=== PATIENT | male | born 1925 | race African-American/Black ===

== ENCOUNTER 2016-07-09 10:56 | Inpatient (IN) | payer OTHER, MEDICARE ==
[~2016-07-09] VITALS: Ht 172.7 cm; Wt 65.8 kg
[~2016-07-09 10:56] MED LIST: CENTRUM SILVER1 TA1 PO; DORZOLAMIDE HYD10 M2; FLUZONE HI180 MCG/02 INC; PIOGLITAZONE HC30 M1 PEG; XALATAN 0.50 GTT/1 B OPH; ZOFRAN4 M2 PO
--- NOTE | 2016-07-09 11:15 | NUR ---
PT BIBA FROM HOME FOR ABD PAIN, +N/+V. PT HAS A G-TUBE BUT HAS VOMITED THREE TIMES SINCE LAST NIGHT. 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 PT DENIES ANY BLOOD IN VOMIT OR STOOL. LAST NORMAL BM YESTERDAY. DENIES BEING AROUND ANYONE SICK LATELY.
--- NOTE | 2016-07-09 11:25 | ED GI/GU/ABDOMINAL COMPLAINT ---
History of Present Illness General Chief Complaint: Abdominal Pain/Flank Pain Stated Complaint: ABD, +N/+V Source: patient Exam Limitations: no limitations Vital Signs & Intake/Output Vital Signs & Intake/Output Vital Signs Date Time Temp Pulse Resp B/P Pulse O2 O2 Flow FiO2 Ox Delivery Rate 07/13 0854 97.6 89 20 100/62 94 07/13 0800 95 Room Air 07/13 0044 100.1 96 20 110/70 94 Room Air 07/12 1620 99.2 90 20 142/68 95 ED Intake and Output 07/13 0000 07/12 1200 Intake Total 500 935 Output Total 875 300 Balance -375 635 Intake, IV 500 400 Intake, Oral 0 Intake, Tube 360 Feeding Intake, Tube 175 Irrigant Number 1 1 Bowel Movements Output, Urine 875 300 Allergies Coded Allergies: NO KNOWN ALLERGIES (11/21/15) Triage Note: PT BIBA FROM HOME FOR ABD PAIN, +N/+V. PT HAS A G-TUBE BUT HAS VOMITED THREE TIMES SINCE LAST NIGHT. 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 PT DENIES ANY BLOOD IN VOMIT OR STOOL. LAST NORMAL BM YESTERDAY. DENIES BEING AROUND ANYONE SICK LATELY. Triage Nurses Notes Reviewed? yes HPI: This patient is an 89-year-old male with a past medical history including type 2 diabetes and G-tube who presented to the emergency department today brought in by ambulance for evaluation of nausea and vomiting. The patient reported that he has had some nausea, "for a while," but reported that last night at around 12 :00, he felt very nauseous. He reported that his stomach feels sore, denied any abdominal pain. The patient reported that he vomited once last night and approximately 3 times today with no blood in the vomitus. The patient denied having any problems with his G-tube. He denied any fevers, chills, chest pain, difficulty breathing, talking, arm pain, palpitations, numbness or tingling in his extremities, back pain, or any other associated symptoms. (MIKAEL BARBER,ALIREZA) Reconcile Medications Amoxicillin/Potassium Clav (Augmentin 875-125 Tablet) 875 MG-125 MG TABLET 1 TAB PO BID Aspiration pneumonia Insulin Glargine,Hum.rec.anlog (Lantus Solostar) 100 UNIT/ML (3 ML) INSULN.PEN 10 UNIT SC DAILY DIABETES (Reported) Metformin HCl 500 MG TABLET 1 TAB PO BID DIABETES (Reported) Pioglitazone Hydrochloride 30 MG TAB 1 TAB PO DAILY DIABETES (Reported) (JOHN VALLEJO,NEREIDA) Past History Travel History Traveled to [place] past 21 day No Medical History Any Pertinent Medical History? 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 No (ALIREZA YOUSSEF PA-C) Review of Systems Review of Systems Constitutional: Reports: no symptoms. EENTM: Reports: no symptoms. Respiratory: Reports: no symptoms. Cardiovascular: Reports: no symptoms. GI: Reports: see HPI. Genitourinary: Reports: no symptoms. Musculoskeletal: Reports: no symptoms. Skin: Reports: no symptoms. Neurological/Psychological: Reports: no symptoms. All Other Systems: Reviewed and Negative (ALIREZA YOUSSEF PA-C) Physical Exam Physical Exam Gastrointestinal: NORMOACTIVE BOWEL SOUNDS. g-TUBE IN PLACE WITH NO SURROUNDING SKIN ERYTHEMA, EDEMA, OR MACERATION. nONDISTENDED. sOFT. nONTENDER TO PALPATION. nO PERITONEAL SIGNS. nO REBOUND OR GUARDING. nO mCbURNEY'S POINT TENDERNESS. nEGATIVE Gomez SIGN. nO MASSES APPRECIATED. nO ORGANOMEGALY Comments: Well-developed well-nourished person in no acute distress HEENT: Normal EENT exam, moist mucous membranes Pupils equally round and reactive to light. Neck: Supple with no lymphadenopathy Back: Normal inspection Cardiovascular: Regular rate and rhythm with no murmurs, rubs, or gallops Respiratory: No respiratory distress. Breath sounds clear to auscultation bilaterally with no wheezes, rales, rhonchi Extremity: Normal and equal pulses Neuro: Alert oriented x3, cranial nerves II through XII grossly intact. Skin: No appreciable rash on exposed skin, skin is warm and dry. Psych: Mood and affect is normal Core Measures ACS in differential dx? Yes Severe Sepsis Present: No Septic Shock Present: No (MIKAEL BARBER,ALIREZA) Progress Differential Diagnosis: AAA, AMI, appendicitis, biliary colic, bowel obstruction , colon cancer, cholecystitis, diverticulitis, gastritis, hepatitis, ischemic bowel, inflamm bowel dis, pancreatitis, PUD/GERD, perforated viscous, pyelonephritis, ureterolithiasis, UTI/pyelo Plan of Care: Orders Procedure Date/time Status CBC WITHOUT DIFFERENTIAL 07/14 06 Active Anticipated Discharge 07/14 UNK Active CBC WITHOUT DIFFERENTIAL 07/13 0600 Complete XRY-MODIFIED BARIUM SWALLOW 07/13 UNK Active Therapeutic Activities 07/13 UNK Complete Therapeutic Exercise 07/13 UNK Complete Gait Training 07/13 UNK Complete Lab Add-on Test 07/13 UNK Active Nursing Misc 07/13 UNK Active Vital Signs 07/12 1704 Active Teach/Educate 07/12 170 Active Nutritional Intake, Monitor 07/12 170 Active Isolation 07/12 1704 Active Intake & Output 07/12 1704 Active Patient Care Conference 07/12 1704 Active Activity/Ambulation 07/12 1704 Active SPECIMEN TO BE OBTAINED 07/12 1454 Active TOTAL PROTEIN 07/12 1450 Complete AFB WITH SMEAR 07/12 0800 Active Evaluate Swallowing 07/12 UNK Complete PT Evaluate & Treat 07/12 UNK Active Therapeutic Activities 07/12 UNK Complete PT EVAL LOW COMPLEX 20 MIN 07/12 UNK Complete Neuromuscular Re-ed 07/12 UNK Complete Lab Add-on Test 07/12 UNK Active Anticipated Discharge 07/12 UNK Active Nursing Misc 07/12 UNK Complete Current Medications Sig/Lisa Start time Last Medication Dose Stop Time Status Admin Amoxicillin/ 875 MG Q12 07/13 1000 AC Clavulanate Potassium (Augmentin) Acetaminophen 650 MG Q6P PRN 07/09 1715 AC (Tylenol) Trimethobenzamide HCl 200 MG TID PRN 07/09 1715 AC (Tigan) Laboratory Tests 07/13/16 0710: CBC w Diff NO MAN DIFF REQ, RBC 2.91 L, MCV 92.0, MCH 30.9, RDW 13.2, MPV 11.6 H, Gran % 81.3 H, Lymphocytes % 3.9 L, Monocytes % 13.0 H, Eosinophils % 1.3, Basophils % 0.5, Absolute Granulocytes 7.2 H, Absolute Lymphocytes 0.3 L, Absolute Monocytes 1.1 H, Absolute Eosinophils 0.1, Absolute Basophils 0, PUBS MCHC 33.5 07/12/16 1450: Lactate Dehydrogenase 412, Total Protein 6.4, Albumin 2.9 L Diagnostic Imaging: Viewed by Me: CT Scan. Discussed w/RAD: CT Scan. Radiology Impression: PATIENT: MILLY LLOYD PRESENT AGE: 89 PATIENT ACCOUNT NO: [id number] : [birth year] LOCATION: [facility] ORDERING PHYSICIAN: ALIREZA YOUSSEF PA-C SERVICE DATE: 07/09/16 EXAM TYPE: CAT - CT ABD & PELVIS W IV CONTRAST EXAMINATION: CT ABDOMEN AND PELVIS WITH CONTRAST CLINICAL INFORMATION: Abdominal pain. Nausea and vomiting. COMPARISON: Previous CT scan January 2016 TECHNIQUE: Multidetector volumetric imaging was performed of the abdomen and pelvis before and after the IV administration of 95 mL of Optiray 320 intravenous contrast. Sagittal and coronal reformatted images were obtained on the technologist's workstation. DLP: 305 mGy-cm. FINDINGS: LUNG BASES: There are new patchy areas of airspace disease seen in the right middle lobe and right lower lobe suggestive of bronchopneumonia. There is a moderate left pleural effusion and left lower lobe compressive atelectasis that is unchanged. LIVER, GALLBLADDER, AND BILIARY TREE: The liver is normal in size, shape, and attenuation. No focal hepatic lesion or biliary ductal dilatation is present. The gallbladder is unremarkable with no evidence of radiopaque gallstones, gallbladder wall thickening, or obvious pericholecystic inflammatory changes. PANCREAS: Unremarkable. SPLEEN: Unremarkable. ADRENAL GLANDS: Unremarkable. KIDNEYS AND URETERS: The kidneys are normal in size, shape, and attenuation. No hydronephrosis, hydroureter, or calculi seen. No perinephric stranding. BLADDER: Unremarkable. GASTROINTESTINAL TRACT: The small and large bowel are unremarkable. The appendix is unremarkable. There is a gastrostomy tube in the stomach. No ascites or free air is seen. ABDOMINAL WALL: No significant hernia is appreciated. LYMPH NODES: Normal. VASCULAR: Unremarkable. PELVIC VISCERA: Unremarkable. OSSEOUS STRUCTURES: There are severe degenerative changes of the spine. There may be postsurgical change at L4 and L5. There are linear calcifications in the spinal canal from L4-L5 to L5-S1 that are stable. IMPRESSION: New airspace disease in the right middle and right lower lobe suggestive of pneumonia. Chronic moderate-size left pleural effusion and left lower lobe atelectasis/consolidation. Satisfactory position of gastrostomy tube. DICTATED BY: JUSTIN WILHELM MD DATE/TIME DICTATED:07/09/161420 USED EQUIPMENT SALES REPRESENTATIVE:CARLOS DATE/TIME TRANSCRIBED:07/09/161420 CONFIDENTIAL, DO NOT COPY WITHOUT APPROPRIATE AUTHORIZATION. <Electronically signed in Other Vendor System> SIGNED BY: JUSTIN WILHELM MD 07/09/16 1505 Initial ED EKG: normal axis, normal intervals, normal sinus rhythm, nonspecific ST T wave chg, 86 BPM (ALIREZA YOUSSEF PA-C) Departure Departure Disposition: STILL A PATIENT Condition: Stable Clinical Impression Primary Impression: Pneumonia Qualifiers: Pneumonia type: due to unspecified organism Laterality: right Lung location: unspecified part of lung Qualified Code: J18.9 - Pneumonia, unspecified organism Secondary Impressions: Leukocytosis Qualifiers: Leukocytosis type: unspecified Qualified Code: D72.829 - Elevated white blood cell count, unspecified Vomiting Qualifiers: Vomiting type: unspecified Vomiting Intractability: non-intractable Nausea presence: with nausea Qualified Code: R11.2 - Nausea with vomiting, unspecified Referrals: ALVINA BRITO MD (PCP/Family) Departure Forms: Customer Survey General Discharge Information Admission Note Spoke With: COURTNEY KABA MD Documentation of Exam: Documentation of any treatments & extenuating circumstances including Concerns Regarding Discharge (functional status, medication knowledge or non-compliance, living conditions, etc.) that warrant an admission rather than observation: [ This patient is a 89-year-old male who presented to the emergency department today for evaluation of nausea and vomiting. This patient has a right middle and right lower lobe pneumonia with a 17.4, white blood cell count and a shift. Concern for aspiration pneumonia. This patient is a poor candidate for outpatient treatment. He should be admitted to the hospital for IV antibiotics, follow-up blood cultures, IV fluids, IV antiemetics, trend labs, and close monitoring. Premature discharge could prove medically harmful.] (MIKAEL BARBER,ALIREZA) Departure Prescriptions: Current Visit Scripts Amoxicillin/Potassium Clav (Augmentin 875-125 Tablet) 1 TAB PO BID #12 TAB PA/ENGRAVING SUPERVISOR Co-Sign Statement Statement: ED Attending supervision documentation- [X] I saw and evaluated the patient. I have also reviewed all the pertinent lab results and diagnostic results. I agree with the findings and the plan of care as documented in the PA's/ENGRAVING SUPERVISOR's documentation. [X] I have reviewed the ED Record and agree with the PA's/ENGRAVING SUPERVISOR's documentation. [] Additions or exceptions (if any) to the PAs/ENGRAVING SUPERVISOR's note and plan are summarized below: [] (JOHN VALLEJO,NEREIDA)
--- NOTE | 2016-07-09 11:57 | NUR ---
PT EVALUATED BY ALIREZA EARLY FLU SWAB TAKEN AND SENT TO LAB
[2016-07-09] MEDS ORDERED: LANTUS SOL100 UNIT/1 SC (12:36)
[2016-07-09] MEDS ORDERED: METFORMIN HCL500 M3 PEG (12:37)
--- NOTE | 2016-07-09 12:43 | NUR ---
BLOOD DRAWN DIRECTED. 20 G AUGUSTINE PLACED IN RIGHT FOREARM IV OF N/S STARTED W/O X 500 ML PT MEDICATED WITH 4 MG ZOFRAN IV FOR NAUSEA
[2016-07-09 12:58] LABS: ABSOLUTE BASOPHIL COUNT 0 /CUMM (0.0-0.2); ABSOLUTE EOSINOPHIL COUNT 0.1 /CUMM (0.0-0.7); ABSOLUTE GRANULOCYTE CT 16.2 /CUMM (1.4-6.5); ABSOLUTE LYMPH COUNT 0.5 /CUMM (1.2-3.4); ABSOLUTE MONOCYTE COUNT 0.6 /CUMM (0.10-0.60); BASOPHIL % 0.1 % (0.0-2.0); EOSINOPHIL % 0.3 % (0-5); HEMATOCRIT 36.1 % (42-52); MEAN CORPUSCULAR HGB 30.7 PG (27.0-31.0); MEAN CORPUSCULAR HGB CONC 33.3 G/DL (33.0-37.0); MEAN CORPUSCULAR VOLUME 92.3 FL (80.0-94.0); MEAN PLATELET VOLUME 10.6 FL (7.4-10.4); PLATELET COUNT 138 /CUMM (130-400); RBC DISTRIBUTION WIDTH 13.7 % (11.5-14.5); RED BLOOD CELL CT 3.91 /CUMM (4.70-6.10); WHITE BLOOD CELL COUNT 17.4 /CUMM (4.8-10.8)
--- NOTE | 2016-07-09 15:05 | CT SCAN REPORT ---
EXAMINATION: CT ABDOMEN AND PELVIS WITH CONTRAST CLINICAL INFORMATION: Abdominal pain. Nausea and vomiting. COMPARISON: Previous CT scan January 2016 TECHNIQUE: Multidetector volumetric imaging was performed of the abdomen and pelvis before and after the IV administration of 95 mL of Optiray 320 intravenous contrast. Sagittal and coronal reformatted images were obtained on the technologist's workstation. DLP: 305 mGy-cm. FINDINGS: LUNG BASES: There are new patchy areas of airspace disease seen in the right middle lobe and right lower lobe suggestive of bronchopneumonia. There is a moderate left pleural effusion and left lower lobe compressive atelectasis that is unchanged. LIVER, GALLBLADDER, AND BILIARY TREE: The liver is normal in size, shape, and attenuation. No focal hepatic lesion or biliary ductal dilatation is present. The gallbladder is unremarkable with no evidence of radiopaque gallstones, gallbladder wall thickening, or obvious pericholecystic inflammatory changes. PANCREAS: Unremarkable. SPLEEN: Unremarkable. ADRENAL GLANDS: Unremarkable. KIDNEYS AND URETERS: The kidneys are normal in size, shape, and attenuation. No hydronephrosis, hydroureter, or calculi seen. No perinephric stranding. BLADDER: Unremarkable. GASTROINTESTINAL TRACT: The small and large bowel are unremarkable. The appendix is unremarkable. There is a gastrostomy tube in the stomach. No ascites or free air is seen. ABDOMINAL WALL: No significant hernia is appreciated. LYMPH NODES: Normal. VASCULAR: Unremarkable. PELVIC VISCERA: Unremarkable. OSSEOUS STRUCTURES: There are severe degenerative changes of the spine. There may be postsurgical change at L4 and L5. There are linear calcifications in the spinal canal from L4-L5 to L5-S1 that are stable. IMPRESSION: New airspace disease in the right middle and right lower lobe suggestive of pneumonia. Chronic moderate-size left pleural effusion and left lower lobe atelectasis/consolidation. Satisfactory position of gastrostomy tube.
--- NOTE | 2016-07-09 15:47 | NUR ---
PT'S URINAL SPILLED ON BED, BEDDING CHANGED AND [facility] CARE PROVIDED. WILL CONTINUE TO MONITOR.
--- NOTE | 2016-07-09 16:20 | NUR ---
HOUSE STAFF AT BEDSIDE FOR EVAL.
--- NOTE | 2016-07-09 17:01 | NUR ---
PT'S FAMILY MEMBER WOULD LIKE TO BE CONTACTED ONCE PT GETS ADMITTED UPSTAIRS: IRVIN [phone]
--- NOTE | 2016-07-09 17:01 | History & Physical ---
MARIZOL SHAVER MD 07/09/16 5594: General Information and HPI MD Statement: I have seen and personally examined MILLY GREENWOOD and documented this H&P. The patient is a 89 year old M who presented with a patient stated chief complaint of nausea and vomiting. Source of Information: patient, family Exam Limitations: poor historian History of Present Illness: Mr. 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 Patient's son was in the room during the interview and reports that his father frequently had nausea and had vomiting a few times over the last 2-4 weeks. This nausea is intermittent and relieved with discontinuation of his tube feedings (continuous). He has not taken anything for the nausea or vomiting. Patient has not seen a physician for this issue before. The reason that the patient presented to the ED today is because last night his nausea was extremely severe. In the last 24 hours, patient admits to vomiting once last night and about 2 times today, without evidence of blood. Patient denies fever, chills, chest pain, shortness of breath , abdominal pain, dysuria, foul smelling urine or weakness. He does admit to the inability to swallow secretions secondary to his vocal cord paralysis and occasionally this requires him to use his own suctioning to clear his airway. Of note, his G-tube is checked and dressed daily by a visiting nurse during the week and his son changes the dressing during the weekends; there have been no recent problems with the G-tube. He was at [facility] in May for a nutrition evaluation to determine appropriate feeding rate and pump speed. I have called the patient's daughter Jac ([phone]) who is POA and would like to be involed in her fathers care. 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 Home Services at Home: Home Health Aide, Nursing Primary Language: Persian Smoking Status: Never Smoked ETOH Use: denies use Illicit Drug Use: denies illicit drug use Living Will? no Functional Ability ADLs Independent: dressing. Ambulation: walker Sexual History Sexually Active No Review of Systems Review of Systems Constitutional: Denies: chills, fever, malaise, weakness. EENTM: Denies: blurred vision, visual changes, hearing changes, nasal congestion, throat pain, throat swelling. Cardiovascular: Denies: chest pain, palpitations. Respiratory: Denies: cough, short of breath, sputum production, wheezing. GI: Reports: nausea, vomiting. Denies: abdominal pain, bloating, constipation, diarrhea, distention, bloody stool. Genitourinary: Denies: frequency, hematuria, pain. Musculoskeletal: Denies: muscle pain. Skin: Denies: change in skin color, change in hair/nails. Neurological/Psychological: Denies: anxiety, ataxia, confusion, headache, numbness. Hematologic/Endocrine: Denies: bruising, bleeding. Immunologic/Allergic: Denies: splenectomy. All Other Systems: Reviewed and Negative Exam & Diagnostic Data Last 24 Hrs of Vital Signs/I&O Vital Signs Date Time Temp Pulse Resp B/P Pulse O2 O2 Flow FiO2 Ox Delivery Rate 07/09 1704 Room Air Room Air 07/09 1609 97.1 85 15 130/66 96 Room Air Room Air 07/09 1245 96 Room Air 07/09 1118 96.7 86 16 157/76 96 Room Air Intake & Output 07/09 1600 07/09 0800 07/09 0000 Intake Total 0 Output Total Balance 0 Intake, Oral 0 Patient 145 lb Weight Physical Exam General Appearance Alert, Oriented X3, Cooperative, No Acute Distress Skin No Significant Lesion, Skin dry and no signs of infection around PEG tube. HEENT Atraumatic, PERRLA, Mucous Membr. moist/pink Neck Supple, No JVD Lymphatic Cervical nl Cardiovascular Regular Rate, Normal S1, Normal S2, Systolic murmur. Lungs Clear to Auscultation, Normal Air Movement Abdomen Normal Bowel Sounds, Soft, No Tenderness, No Masses Neurological Normal Speech, Normal Tone Extremities No Clubbing, No Cyanosis, No Edema Vascular Pulses Symmetrical Last 24 Hrs of Labs/Bradley: Laboratory Tests 07/09/16 1424: Lactic Acid Cancelled 07/09/16 1235: Anion Gap 13, Estimated GFR > 60, BUN/Creatinine Ratio 28.8 H, Glucose 172 H, Lactic Acid 1.8, Calcium 9.2, Total Bilirubin 1.0, Direct Bilirubin 0.4, AST 21, ALT 18 L, Alkaline Phosphatase 127 H, Troponin I < 0.01, Total Protein 7.9, Albumin 3.8, Globulin 4.1, Albumin/Globulin Ratio 0.9 L, Amylase 59, Lipase 115 , CBC w Diff MAN DIFF ORDERED, RBC 3.91 L, MCV 92.3, MCH 30.7, RDW 13.7, MPV 10.6 H, Gran % 93.0 H, Lymphocytes % 3.0 L, Monocytes % 3.6, Eosinophils % 0.3, Basophils % 0.1, Absolute Granulocytes 16.2 H, Absolute Lymphocytes 0.5 L , Absolute Monocytes 0.6, Absolute Eosinophils 0.1, Absolute Basophils 0, Platelet Estimate VERIFIED BY SMEAR, Normocytic RBCs VERIFIED, Normochromic RBCs VERIFIED, PUBS MCHC 33.3 Microbiology 07/09 1607 BLOOD: Blood Culture - RECD 07/09 1556 BLOOD: Blood Culture - RECD Diagnostic Data EKG Results SR, HR 86, non-specific IVCD, LVH. Changed from prior EKG. Other Results EXAMINATION: CT ABDOMEN AND PELVIS WITH CONTRAST CLINICAL INFORMATION: Abdominal pain. Nausea and vomiting. COMPARISON: Previous CT scan January 2016 TECHNIQUE: Multidetector volumetric imaging was performed of the abdomen and pelvis before and after the IV administration of 95 mL of Optiray 320 intravenous contrast. Sagittal and coronal reformatted images were obtained on the technologist's workstation. DLP: 305 mGy-cm. FINDINGS: LUNG BASES: There are new patchy areas of airspace disease seen in the right middle lobe and right lower lobe suggestive of bronchopneumonia. There is a moderate left pleural effusion and left lower lobe compressive atelectasis that is unchanged. LIVER, GALLBLADDER, AND BILIARY TREE: The liver is normal in size, shape, and attenuation. No focal hepatic lesion or biliary ductal dilatation is present. The gallbladder is unremarkable with no evidence of radiopaque gallstones, gallbladder wall thickening, or obvious pericholecystic inflammatory changes. PANCREAS: Unremarkable. SPLEEN: Unremarkable. ADRENAL GLANDS: Unremarkable. KIDNEYS AND URETERS: The kidneys are normal in size, shape, and attenuation. No hydronephrosis, hydroureter, or calculi seen. No perinephric stranding. BLADDER: Unremarkable. GASTROINTESTINAL TRACT: The small and large bowel are unremarkable. The appendix is unremarkable. There is a gastrostomy tube in the stomach. No ascites or free air is seen. ABDOMINAL WALL: No significant hernia is appreciated. LYMPH NODES: Normal. VASCULAR: Unremarkable. PELVIC VISCERA: Unremarkable. OSSEOUS STRUCTURES: There are severe degenerative changes of the spine. There may be postsurgical change at L4 and L5. There are linear calcifications in the spinal canal from L4-L5 to L5-S1 that are stable. IMPRESSION: New airspace disease in the right middle and right lower lobe suggestive of pneumonia. Chronic moderate-size left pleural effusion and left lower lobe atelectasis/consolidation. Satisfactory position of gastrostomy tube. Assessment/Plan Assessment: Ms. 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 This nausea and vomiting is intermittent and relieved with discontinuation of his tube feeding; he has not tried any medications for relief. He does admit to increased oral secretions requiring intermittent suctioning at home. Patient denies any other symptoms, including fever, chills, confusion, throat pain, palpitations, chest pain, shortness of breath, wheezing, abdominal pain, diarrhea, constipation, steatorrhea, dysuria or foul-smelling urine. In the ED: Vital signs T 96.7, HR 86, RR 16, BP 157/76 and O2 saturation of 96% on RA. Labs showed leukocytosis without bandemia to 17.4, anemia to 12/36.1, plt 138 and unremarkable chem panel except for mildly elevated BUN to 23. AST 21, ALT 127, troponin <0.01, amylase 59, lipase 115. Abdomen/pelvis CT was done and showed airspace disease in the right middle and right lower lobe suggestive of pneumonia. Chronic moderate-size left pleural effusion and left lower lobe atelectasis/consolidation. Satisfactory position of gastrostomy tube. Patient is admitted to the general medicine floor and the following is the management: 1. Aspiration pneumonia (RLL) with left pleural effusion * Patient hemodynamically stable saturating well on room air, no signs of sepsis * Blood cultures x 2 were drawn in ED, f/u results, * LRC, urine for strep and legionella pending, f/u results * Patient placed on IV unasyn 3 g Q6h pending culture results * Pulmonary consult with Dr. Glass for the AM * Consideration for thoracentesis given moderate-size left pleural effusion * PA and lateral CXR ordered, f/u results 2. Nausea and vomiting * DDx: gastroparesis vs rapid PEG tube feedings requring adjustment * Patient to be made NPO (no feeding through G-Tube) * Nutrition consult in AM to determine how long patient should remain NPO vs at what rate to restart tube feedings * Tigan PRN for nausea, avoid zofran * IV fluids D51/2MS at 50 cc/h for now while patient is NPO 3. Diabetes mellitus * Stop oral hypoglycemics * NPO sliding scale * FSGs Q6 while patient is NPO * Consideration for endocrinology consult with Dr. Fierro, patient's PCP FULL CODE DVTP: Lovenox SC Diet: NPO Mild Pain pathways As Ranked By This Provider Problem List: 1. Diabetes mellitus 2. Dysphagia 3. GERD 4. Osteoarthritis 5. Anemia 6. Vomiting Qualifiers Vomiting type: unspecified Vomiting Intractability: non-intractable Nausea presence: with nausea Qualified Code: R11.2 - Nausea with vomiting, unspecified 7. Leukocytosis Qualifiers Leukocytosis type: unspecified Qualified Code: D72.829 - Elevated white blood cell count, unspecified 8. Pneumonia Qualifiers Pneumonia type: due to unspecified organism Laterality: right Lung location: unspecified part of lung Qualified Code: J18.9 - Pneumonia, unspecified organism 9. Vocal cord paralysis 10. Oropharyngeal dysphagia Core Measures/Miscellaneous Acute Coronary Syndrome ACS Diagnosis: No Cerebrovascular Accident CVA/TIA Diagnosis: No Congestive Heart Failure CHF Diagnosis: No Venous Thromboembolism VTE Risk Factors: Acute medical illness, Age > 40 VTE Prophylaxis [facility]dered Inpt: [facility] d/t: No contraindications No VTE Pharm Prophylaxis d/t: No contraindications VTE Diagnosis: No VTE Type: NONE VTE Confirmed by (Test): NONE Severe Sepsis Severe Sepsis Present: No Septic Shock Septic Shock Present: No Miscellaneous Documentation Attending Case Discussed With: COURTNEY KABA MD Primary Care Physician: ALVINA FIERRO MD Patient sees these Specialists Dr. Fierro- PCP Level of Patient Care: General Medicine AYAAN BERRIOS 07/09/16 1846: Resident Review Statement Resident Statement: examined this patient, discussed with recruiting intern, agreed with recruiting intern, discussed with family, reviewed EMR data (avail), discussed with nursing , discussed with case mgmt, reviewed images, amended to note Other Findings: 89 very pleasant gentleman with past medical history of prostate cancer status post resection and chemotherapy, unilateral vocal cord paralysis(motor neuron disease?)diabetes, osteoarthritis, on PEG tube came with chief complaint of nausea, vomiting. Patient reported having nausea for at least 4 weeks with intermittent nonbloody vomiting. He reported today he had an episode of nausea and vomiting and came to the hospital for that. Patient has been following with Dr. Fierro as his PCP. Patient denies any episode of fevers, chills, abdominal pain, diarrhea, constipation, headache, chest pain, cough, dizziness, weakness in the limbs. Echocardiogram 55% about 2 years ago. He also reports that sometimes he develops phlegm back is his throat that he use suction for it. vital signs on admission were stable which is noted above. General appearance alert and oriented 3, not in distress HEENT Atraumatic, PERRLA, EOMI Neck Supple, No JVD, No thryomegaly Cardiovascular Regular Rate, Normal S1, Normal S2, 3/6 systolic murmur Lungs Clear to the bilateral basilar crackles Abdomen Normal Bowel Sounds, Soft, No Tenderness, No Hepatospenomegaly, No Masses, no redness and on PEG tube Neurological incomplete gag reflex, Strength at 5/5 X4 Ext, Extremities No Cyanosis, No Edema,Normal Pulses CT scan of the pelvis and abdomen showed : New airspace disease in the right middle and right lower lobe suggestive of pneumonia. Chronic moderate-size left pleural effusion and left lower lobe atelectasis/consolidation. Satisfactory position of gastrostomy tube. Notable labs showed WBC of 17.4, hemoglobin 12 which is at baseline, ALP 127, EKG showed normal sinus rhythm, LVH, QTC 517, pulse rate 86 Assessment and plan #Aspiration pneumonia -No PEG tube feeding for now and nutritional consult for tomorrow for restarting a lower rate -Admit to general floor -IV Unasyn 3 g every 6 -Sputum cultures, blood culture, urine strep and Legionella -Pulmonic consult in the morning -Chest x-ray PA and lateral -Possible thoracocentesis based on the progression of the disease -Gentle IV hydration with D5 half NS for now #Diabetes -Stop oral medications -Put the patient on Levemir and NPO Novolin sliding scale -Accu checks Q6 #Nausea vomiting(due to gastroparesis versus increased tube feeding rate), long QTC -Tigan when necessary for nausea -Avoid Zofran #DVT prophylaxis is Levonox, ALPS, fulll code, Tylenol for pain , NPO no tube feeding for now COURTNEY KABA MD 07/09/16 2301: Attending MD Review Statement Attending Statement Attending MD Statement: examined this patient, discuss w/resident/PA/COOK MORNING, agreed w/resident/PA/COOK MORNING, reviewed EMR data (avail) Attending Assessment/Plan: Agree with resident assessment and plan. Will treat for aspiration pneumonia with Unasyn, check sputum culture, repeat CXR Tuesday, pulmonary consult, aspiration precautions, PPI, hold tube feeds, continue home meds, monitor renal function, gentle IV hydration, DVT PPx
--- NOTE | 2016-07-09 17:03 | NUR ---
MARIZOL FROM HOUSE STAFF PAGED AT #[phone].
--- NOTE | 2016-07-09 17:41 | NUR ---
PT MEDICATED WITH INSULIN PER EMAR. DOSE VERIFIED WITH MENDY COX. INFORMED WAITING FOR ROOM ASSIGNMENT ON FLOOR.
--- NOTE | 2016-07-09 18:24 | NUR ---
PT TO XRAY VIA STRETCHER NOW. WILL BE MEDICATED WITH UNASYN UPON RETURNING.
--- NOTE | 2016-07-09 19:00 | NUR ---
REPORT GIVEN TO LIDYA COX.
--- NOTE | 2016-07-09 19:04 | NUR ---
PT MEDICATED WITH UNASYN PER EMAR. REPORT GIVEN TO LIDYA COX.
--- NOTE | 2016-07-09 19:11 | NUR ---
SPOKE WITH MARIZOL FROM HOUSE STAFF TO CHANGE ORDERS FOR URINE COLLECTION.
--- NOTE | 2016-07-09 19:14 | NUR ---
NURSE UPSTAIRS AWARE URINE TO BE SENT AFTER ORDERS WERE CHANGED.
[2016-07-09 19:32] VITALS: BP 118/74
--- NOTE | 2016-07-09 19:34 | RADIOLOGY REPORT ---
EXAMINATION: XR CHEST CLINICAL INFORMATION: Nausea, vomiting and PEG tube COMPARISON: 05/03/2013 TECHNIQUE: AP and lateral FINDINGS: There is obscuration of the left hemidiaphragm in addition to moderate left pleural effusion. The left upper lobe is clear. The right lung is clear aside from patchy nonspecific small opacities at the right lung base. No right pleural effusion. The cardiac and mediastinal contours appear stable. Calcifications noted at the level of the aortic arch. The outline of a tube terminating within the left upper quadrant is visualized consistent with history provided of PEG. IMPRESSION: 1. Left lower lobe consolidation with moderate associated effusion. Underlying pneumonia cannot be excluded. 2. New tiny patchy opacities at the right lung base. Multifocal pneumonia cannot be excluded.
--- NOTE | 2016-07-09 22:05 | NUR ---
PATIENT ARRIVED TO FLOOR AT 1925 FROM ER, DX PNA VS 98.4 90 17 118/74 93% ROOM AIR, CONTACT PREC FOR VRE. NO C/O PAIN OR NAUSEA. A & O, LCTA, DIMINISHED L SIDE, BASELINE INDEPENDENT WITH WALKER, BED ALARM IN PLACE. G TUBE L UPPER ABD, DSG IN PLACE, CDI, NO FEEDING ORDERED AT THIS TIME. NPO. IV #20 TO RF WITH D5 1/2 NS @ 50 ML/HR RUNNING. HX OF L VOCAL CORD PARALYSIS, GARBLED SPEECH BUT UNDERSTANDABLE. ORIENTED TO ROOM AND CALL CRAIN. CONTINUE TO MONITOR
[2016-07-09 23:49] VITALS: BP 120/60
--- NOTE | 2016-07-10 07:58 | PN- Housestaff ---
See Addendum Subjective Follow-up For: Aspiration pneumonia Nausea and vomiting Subjective: Patient seen and examined at bedside this AM. He reports he slept well throughout the night and offers no complaints. He does report his nausea is improving and he believes this is secondary to both the phenergan and stopping tube feeds. Review of Systems Constitutional: Denies: chills, fever, malaise. EENTM: Denies: blurred vision, visual changes, nasal congestion, throat pain. Cardiovascular: Denies: chest pain, palpitations. Respiratory: Denies: cough, short of breath, sputum production, wheezing. Gastrointestinal: Denies: abdominal pain, bloating, constipation, diarrhea. Genitourinary: Denies: dysuria. Musculoskeletal: Denies: back pain, joint pain. Skin: Denies: change in skin color, change in hair/nails. Neurological/Psychological: Denies: confusion, headache, numbness. Hematologic/Endocrine: Denies: bruising, bleeding. Objective Last 24 Hrs of Vital Signs/I&O Vital Signs Date Time Temp Pulse Resp B/P Pulse O2 O2 Flow FiO2 Ox Delivery Rate 07/10 0000 Room Air 07/09 2349 98.0 82 19 120/60 93 Room Air 07/09 1932 98.4 90 17 118/74 93 Room Air 07/09 1930 93 Room Air 07/09 1914 97.3 80 15 121/66 99 Room Air Room Air 07/09 1704 Room Air Room Air 07/09 1609 97.1 85 15 130/66 96 Room Air Room Air 07/09 1245 96 Room Air 07/09 1118 96.7 86 16 157/76 96 Room Air Intake & Output 07/10 1600 07/10 0800 07/10 0000 Intake Total 400 175 Output Total 200 275 Balance 200 -100 Intake, IV 400 175 Intake, Oral 0 Output, Urine 200 275 Patient 145 lb Weight Physical Exam General Appearance: Alert, Oriented X3, Cooperative, No Acute Distress Skin: No Significant Lesion HEENT: Atraumatic, Mucous Membr. moist/pink, Poor gag reflex noted during examination. Neck: Supple, No JVD Lymphatic: Cervical nl Cardiovascular: Normal S1, Normal S2, Systolic murmur left sternal border. Lungs: Normal Air Movement, Bibasilar crackles appreciated Abdomen: Soft, No Tenderness, Decreased bowel sounds x 4 quadrants. PEG tube in place and clean. Neurological: Normal Speech, Normal Tone Extremities: No Clubbing, No Cyanosis, No Edema Current Medications: Current Medications Sig/Lisa Start time Last Medication Dose Route Stop Time Status Admin Acetaminophen 650 MG Q6P PRN 07/09 1715 AC PO Ampicillin Sodium/ 0 .STK-MED ONE 07/09 1819 DC Sulbactam Sodium .ROUTE Ampicillin Sodium/ 3,000 MG Q6 07/09 1815 AC 07/10 Sulbactam Sodium IV 0620 Sodium Chloride 100 ML Dextrose/Sodium 1,000 ML Q20H 07/09 1700 AC 07/09 Chloride IV 1952 Enoxaparin Sodium 40 MG DAILY 07/10 1000 AC SC Heparin Sodium 5,000 UNIT Q8 07/09 2200 CAN (Porcine) SC Influenza Virus 0.5 ML ONCE ONE 07/09 2000 DC Vaccine IM 07/09 2000 Insulin Detemir 10 UNITS DAILY 07/10 1000 AC SC Insulin Human Regular 0 Q6 07/09 1800 AC 07/10 SC 0622 Ondansetron HCl 0 .STK-MED ONE 07/09 1200 DC .ROUTE Ondansetron HCl 4 MG ONCE ONE 07/09 1130 DC 07/09 IV 07/09 1131 1242 Patient Medication 1 UNIT ONE NR 07/09 1815 DC Teaching ED 07/09 1830 Sodium Chloride 500 ML BOLUS ONE 07/09 1130 DC 07/09 IV 07/09 1229 1241 Trimethobenzamide HCl 200 MG TID PRN 07/09 1715 AC IM Last 24 Hrs of Lab/Bradley Results Last 24 Hrs of Labs/Mics: Laboratory Tests 07/10/16 0655: Sodium Pending, Potassium Pending, Chloride Pending, Carbon Dioxide Pending, Anion Gap Pending, BUN Pending, Creatinine Pending, BUN/Creatinine Ratio Pending , CBC w Diff Pending, WBC Pending, RBC Pending, Hgb Pending, Hct Pending, MCV Pending, MCH Pending, RDW Pending, Plt Count Pending, MPV Pending, PUBS MCHC Pending 07/09/16 1424: Lactic Acid Cancelled 07/09/16 1235: Anion Gap 13, Estimated GFR > 60, BUN/Creatinine Ratio 28.8 H, Glucose 172 H, Lactic Acid 1.8, Calcium 9.2, Total Bilirubin 1.0, Direct Bilirubin 0.4, AST 21, ALT 18 L, Alkaline Phosphatase 127 H, Troponin I < 0.01, Total Protein 7.9, Albumin 3.8, Globulin 4.1, Albumin/Globulin Ratio 0.9 L, Amylase 59, Lipase 115 , CBC w Diff MAN DIFF ORDERED, RBC 3.91 L, MCV 92.3, MCH 30.7, RDW 13.7, MPV 10.6 H, Gran % 93.0 H, Lymphocytes % 3.0 L, Monocytes % 3.6, Eosinophils % 0.3, Basophils % 0.1, Absolute Granulocytes 16.2 H, Absolute Lymphocytes 0.5 L , Absolute Monocytes 0.6, Absolute Eosinophils 0.1, Absolute Basophils 0, Platelet Estimate VERIFIED BY SMEAR, Normocytic RBCs VERIFIED, Normochromic RBCs VERIFIED, PUBS MCHC 33.3 Microbiology 07/09 2133 URINE ROUT: Legionella Antigen - COMP 07/09 2133 URINE ROUT: Streptococcus pneumoniae Antigen (M - COMP 07/09 1607 BLOOD: Blood Culture - RECD 07/09 1556 BLOOD: Blood Culture - RECD Orders Radiology Findings: EXAMINATION: XR CHEST CLINICAL INFORMATION: Nausea, vomiting and PEG tube COMPARISON: 05/03/2013 TECHNIQUE: AP and lateral FINDINGS: There is obscuration of the left hemidiaphragm in addition to moderate left pleural effusion. The left upper lobe is clear. The right lung is clear aside from patchy nonspecific small opacities at the right lung base. No right pleural effusion. The cardiac and mediastinal contours appear stable. Calcifications noted at the level of the aortic arch. The outline of a tube terminating within the left upper quadrant is visualized consistent with history provided of PEG. IMPRESSION: 1. Left lower lobe consolidation with moderate associated effusion. Underlying pneumonia cannot be excluded. 2. New tiny patchy opacities at the right lung base. Multifocal pneumonia cannot be excluded. Miscellaneous Findings: EXAMINATION: CT ABDOMEN AND PELVIS WITH CONTRAST CLINICAL INFORMATION: Abdominal pain. Nausea and vomiting. COMPARISON: Previous CT scan January 2016 TECHNIQUE: Multidetector volumetric imaging was performed of the abdomen and pelvis before and after the IV administration of 95 mL of Optiray 320 intravenous contrast. Sagittal and coronal reformatted images were obtained on the technologist's workstation. DLP: 305 mGy-cm. FINDINGS: LUNG BASES: There are new patchy areas of airspace disease seen in the right middle lobe and right lower lobe suggestive of bronchopneumonia. There is a moderate left pleural effusion and left lower lobe compressive atelectasis that is unchanged. LIVER, GALLBLADDER, AND BILIARY TREE: The liver is normal in size, shape, and attenuation. No focal hepatic lesion or biliary ductal dilatation is present. The gallbladder is unremarkable with no evidence of radiopaque gallstones, gallbladder wall thickening, or obvious pericholecystic inflammatory changes. PANCREAS: Unremarkable. SPLEEN: Unremarkable. ADRENAL GLANDS: Unremarkable. KIDNEYS AND URETERS: The kidneys are normal in size, shape, and attenuation. No hydronephrosis, hydroureter, or calculi seen. No perinephric stranding. BLADDER: Unremarkable. GASTROINTESTINAL TRACT: The small and large bowel are unremarkable. The appendix is unremarkable. There is a gastrostomy tube in the stomach. No ascites or free air is seen. ABDOMINAL WALL: No significant hernia is appreciated. LYMPH NODES: Normal. VASCULAR: Unremarkable. PELVIC VISCERA: Unremarkable. OSSEOUS STRUCTURES: There are severe degenerative changes of the spine. There may be postsurgical change at L4 and L5. There are linear calcifications in the spinal canal from L4-L5 to L5-S1 that are stable. IMPRESSION: New airspace disease in the right middle and right lower lobe suggestive of pneumonia. Chronic moderate-size left pleural effusion and left lower lobe atelectasis/consolidation. Satisfactory position of gastrostomy tube. Assessment/Plan Assessment: Mr. 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 This nausea and vomiting is intermittent and relieved with discontinuation of his tube feeding; he has not tried any medications for relief. He does admit to increased oral secretions requiring intermittent suctioning at home. Patient denies any other symptoms, including fever, chills, confusion, throat pain, palpitations, chest pain, shortness of breath, wheezing, abdominal pain, diarrhea, constipation, steatorrhea, dysuria or foul-smelling urine. In the ED: Vital signs T 96.7, HR 86, RR 16, BP 157/76 and O2 saturation of 96% on RA. Labs showed leukocytosis without bandemia to 17.4, anemia to 12/36.1, plt 138 and unremarkable chem panel except for mildly elevated BUN to 23. AST 21, ALT 127, troponin <0.01, amylase 59, lipase 115. Abdomen/pelvis CT was done and showed airspace disease in the right middle and right lower lobe suggestive of pneumonia. Chronic moderate-size left pleural effusion and left lower lobe atelectasis/consolidation. Satisfactory position of gastrostomy tube. Patient is admitted to the general medicine floor and the following is the management: 1. Aspiration pneumonia (RLL) with left pleural effusion * Patient hemodynamically stable saturating well on room air, no signs of sepsis * Blood cultures x 2 were drawn in ED, f/u results, * Follow up [facility] * Urine for strep and legionella negative * Patient placed on IV unasyn 3 g Q6h pending culture results * Pulmonary consult with Dr. Glass placed, will follow up rec's * Consideration for thoracentesis given moderate-size left pleural effusion * PA and lateral CXR done last night, showed LLL consolidation with moderate effusion as well as new patchy opacities in right lung base, cannot exclude multifocal PNA 2. Nausea and vomiting * DDx: gastroparesis vs rapid PEG tube feedings requring adjustment * Patient to be made NPO (no feeding through G-Tube) * Nutrition consult placed for to determine how long patient should remain NPO vs at what rate to restart tube feedings * Tigan PRN for nausea, avoid zofran * IV fluids D51/2MS at 50 cc/h for now while patient is NPO 3. Diabetes mellitus * Stop oral hypoglycemics * NPO sliding scale * FSGs Q6 while patient is NPO * Consideration for endocrinology consult with Dr. Bernard, patient's PCP 4. Influenza vaccination * Patient received flu shot on 07/09/16 FULL CODE DVTP: Lovenox SC Diet: NPO Mild Pain pathways Problem List: 1. Diabetes mellitus 2. GERD 3. Osteoarthritis 4. Vomiting 5. Leukocytosis 6. Pneumonia 7. Vocal cord paralysis 8. Oropharyngeal dysphagia Pain Ratin Pain Location: n/a Pain Goal: Remain pain free Pain Plan: Tylenol for mild pain. Tomorrow's Labs & Rationales: CBC (monitor leukocytosis), BEP (monitor electrolytes while patient NPO)
[2016-07-10 09:17] LABS: ABSOLUTE BASOPHIL COUNT 0 /CUMM (0.0-0.2); ABSOLUTE EOSINOPHIL COUNT 0.3 /CUMM (0.0-0.7); ABSOLUTE GRANULOCYTE CT 10.7 /CUMM (1.4-6.5); ABSOLUTE LYMPH COUNT 0.9 /CUMM (1.2-3.4); ABSOLUTE MONOCYTE COUNT 0.9 /CUMM (0.10-0.60); BASOPHIL % 0.3 % (0.0-2.0); EOSINOPHIL % 2.2 % (0-5); MEAN CORPUSCULAR HGB CONC 33.5 G/DL (33.0-37.0); MEAN CORPUSCULAR VOLUME 92.4 FL (80.0-94.0); MEAN PLATELET VOLUME 11.6 FL (7.4-10.4); PLATELET COUNT 134 /CUMM (130-400); RBC DISTRIBUTION WIDTH 13.7 % (11.5-14.5); RED BLOOD CELL CT 3.28 /CUMM (4.70-6.10); WHITE BLOOD CELL COUNT 12.9 /CUMM (4.8-10.8)
--- NOTE | 2016-07-10 10:48 | Cons- Pulmonary ---
General Information and HPI Consulting Request Date of Consult: 07/10/16 Requested By: randolph Reason for Consult: Left pleural effusion History of Present Illness: Patient is awake alert 89-year-old gentleman with PEG tube secondary to vocal cord paralysis admitted because of nausea vomiting and leukocytosis thought to be secondary to aspiration pneumonia. CT shows multifocal pulmonary infiltrates and a chronic left effusion demonstrated in January 2016 this is never been evaluated. Patient is comfortable on room air has scant cough and minimal sputum. He's been started on antibiotics for presumed aspiration pneumonia. Allergies/Medications Allergies: Coded Allergies: NO KNOWN ALLERGIES (11/21/15) Home Med List: Insulin Glargine,Hum.rec.anlog (Lantus Solostar) 100 UNIT/ML (3 ML) INSULN.PEN 10 UNIT SC DAILY DIABETES (Reported) Metformin HCl 500 MG TABLET 1 TAB PO BID DIABETES (Reported) Pioglitazone Hydrochloride 30 MG TAB 1 TAB PO DAILY DIABETES (Reported) Review of Systems Review of Systems Constitutional: Denies: chills, fever. Cardiovascular: Denies: chest pain. Respiratory: Denies: cough, hemoptysis, short of breath. GI: Reports: nausea, vomiting. 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 Home Services at Home: Home Health Aide, Nursing Primary Language: French Smoking Status: Former Smoker ETOH Use: denies use Illicit Drug Use: denies illicit drug use Living Will? no Functional Ability ADLs Independent: dressing. Ambulation: walker Exam & Diagnostic Data Last 24 Hrs of Vital Signs/I&O Vital Signs Date Time Temp Pulse Resp B/P Pulse O2 O2 Flow FiO2 Ox Delivery Rate 07/10 0000 Room Air 07/09 2349 98.0 82 19 120/60 93 Room Air 07/09 1931 98.4 90 17 118/74 93 Room Air 07/09 1929 93 Room Air 01/20 1914 97.3 80 15 121/66 99 Room Air Room Air 07/09 1704 Room Air Room Air 07/09 1609 97.1 85 15 130/66 96 Room Air Room Air 07/09 1245 96 Room Air 07/09 1118 96.7 86 16 157/76 96 Room Air Intake & Output 07/10 1600 07/10 0800 07/10 0000 Intake Total 400 175 Output Total 200 275 Balance 200 -100 Intake, IV 400 175 Intake, Oral 0 Output, Urine 200 275 Patient 145 lb 145 lb Weight Patient is afebrile room oxygen saturation 93% HNT exam shows no adenopathy exam of his chest shows diminished breath sounds at the left base there are occasional crackles are no wheezes cardiac exam shows a regular S1 and S2 without murmurs abdominal exam is soft nontender his extremities without calf tenderness Last 48 Hrs of Labs/Bradley: Laboratory Tests 07/10/16 0655: Anion Gap 9, Estimated GFR > 60, BUN/Creatinine Ratio 15.6, CBC w Diff Pending, WBC Pending, RBC Pending, Hgb Pending, Hct Pending, MCV Pending, MCH Pending, RDW Pending, Plt Count Pending, MPV Pending, PUBS MCHC Pending 07/09/16 1424: Lactic Acid Cancelled 07/09/16 1235: Anion Gap 13, Estimated GFR > 60, BUN/Creatinine Ratio 28.8 H, Glucose 172 H, Lactic Acid 1.8, Calcium 9.2, Total Bilirubin 1.0, Direct Bilirubin 0.4, AST 21, ALT 18 L, Alkaline Phosphatase 127 H, Troponin I < 0.01, Total Protein 7.9, Albumin 3.8, Globulin 4.1, Albumin/Globulin Ratio 0.9 L, Amylase 59, Lipase 115 , CBC w Diff MAN DIFF ORDERED, RBC 3.91 L, MCV 92.3, MCH 30.7, RDW 13.7, MPV 10.6 H, Gran % 93.0 H, Lymphocytes % 3.0 L, Monocytes % 3.6, Eosinophils % 0.3, Basophils % 0.1, Absolute Granulocytes 16.2 H, Absolute Lymphocytes 0.5 L , Absolute Monocytes 0.6, Absolute Eosinophils 0.1, Absolute Basophils 0, Platelet Estimate VERIFIED BY SMEAR, Normocytic RBCs VERIFIED, Normochromic RBCs VERIFIED, PUBS MCHC 33.3 Microbiology 01/20 2134 URINE ROUT: Legionella Antigen - COMP 07/09 2133 URINE ROUT: Streptococcus pneumoniae Antigen (M - COMP Assessment/Plan Impression/Plan: 89-year-old gentleman with presumed aspiration pneumonia. He's had a chronic pleural effusion of 6 months duration of uncertain etiology. Fact that this has been present for 6 months makes empyema less likely though the risk of seeding his effusion exists. Recommendations: Diagnostic and therapeutic thoracentesis of left pleural effusion. Obtain sputum C&S. Aspiration precautions. Discussed with housestaff. Consult Acknowledgment - Thank you for your consult request.
[2016-07-10 11:40] LABS: HEMATOCRIT 30.3 % (42-52)
--- NOTE | 2016-07-10 12:30 | NUR ---
1230 TUBE FEED STARTED AT 10ML/HR, FLUSH OF 175ML EVERY 6 HOURS.
[2016-07-10 15:40] VITALS: BP 140/62
[2016-07-10 23:54] VITALS: BP 130/66
[2016-07-11 07:35] VITALS: BP 121/64
--- NOTE | 2016-07-11 08:52 | PN- Housestaff ---
JEFF VALLEJO,EDEN 07/11/16 0851: Subjective Follow-up For: Aspiration pneumonia Nausea and vomiting Subjective: Patient seen and examined at bedside. No events reported overnight. Resting comfortably in bed with no new complaints and in no acute distress. Denies any nausea, vomiting, abdominal pain, dyspnea or chest pain. No leakage or any signs of infection around the PEG tube insertion site. Review of Systems Constitutional: Reports: see HPI. Objective Last 24 Hrs of Vital Signs/I&O Vital Signs Date Time Temp Pulse Resp B/P Pulse O2 O2 Flow FiO2 Ox Delivery Rate 07/11 0735 98.4 77 20 121/64 94 Room Air 07/10 2354 98.7 80 19 130/66 94 Room Air 07/10 1540 99.2 79 20 140/62 97 Intake & Output 07/11 1600 07/11 0800 07/11 0000 Intake Total 850 655 Output Total Balance 850 655 Intake, IV 400 400 Intake, Oral 0 Intake, Tube 280 80 Feeding Intake, Tube 170 175 Irrigant Number 1 Bowel Movements Physical Exam General Appearance: Alert, Oriented X3, Cooperative, No Acute Distress Other Physical Findings: Skin: No Significant Lesion HEENT: Atraumatic, Mucous Membr. moist/pink, Poor gag reflex noted during examination. Neck: Supple, No JVD Lymphatic: Cervical nl Cardiovascular: Normal S1, Normal S2, Systolic murmur left sternal border. Lungs: Normal Air Movement, Bibasilar crackles appreciated Abdomen: Soft, No Tenderness, Decreased bowel sounds x 4 quadrants. PEG tube in place and clean. Neurological: Normal Speech, Normal Tone Extremities: No Clubbing, No Cyanosis, No Edema Current Medications: Current Medications Sig/Lisa Start time Last Medication Dose Route Stop Time Status Admin Acetaminophen 650 MG .STK-MED ONE 07/10 2134 DC PO 07/10 2135 Acetaminophen 650 MG Q6P PRN 07/09 1715 AC PO Ampicillin Sodium/ 3,000 MG Q6 07/09 1815 AC 07/11 Sulbactam Sodium IV 1217 Sodium Chloride 100 ML Dextrose/Sodium 1,000 ML Q20H 07/09 1700 AC 07/11 Chloride IV 0933 Enoxaparin Sodium 40 MG DAILY 07/10 1000 AC 07/11 SC 0902 Famotidine 20 MG DAILY 07/11 1000 AC 07/11 PO 0902 Insulin Detemir 10 UNITS DAILY 07/10 1000 AC 07/11 DC 0901 Insulin Human Regular 0 Q6 07/09 1800 07/11 DC 1214 Melatonin 5 MG ONCE ONE 07/11 0115 DC PO 07/11 0116 Omeprazole 20 MG DAILY 07/10 0945 DC PO Trimethobenzamide HCl 200 MG TID PRN 07/09 1715 AC IM Last 24 Hrs of Lab/Bradley Results Last 24 Hrs of Labs/Mics: Laboratory Tests 07/11/16 0635: Anion Gap 8, Estimated GFR > 60, BUN/Creatinine Ratio 12.5, PT 13.8 H, INR 1.32 H, APTT 33, CBC w Diff NO MAN DIFF REQ, RBC 3.14 L, MCV 93.3, MCH 31.2 H, RDW 13.2, MPV 12.2 H, Gran % 83.1 H, Lymphocytes % 4.7 L, Monocytes % 8.7, Eosinophils % 3.1, Basophils % 0.4, Absolute Granulocytes 8.6 H, Absolute Lymphocytes 0.5 L, Absolute Monocytes 0.9 H, Absolute Eosinophils 0.3, Absolute Basophils 0, PUBS MCHC 33.5 Assessment/Plan Assessment: Mr. 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 This nausea and vomiting is intermittent and relieved with discontinuation of his tube feeding; he has not tried any medications for relief. He does admit to increased oral secretions requiring intermittent suctioning at home. Patient denies any other symptoms, including fever, chills, confusion, throat pain, palpitations, chest pain, shortness of breath, wheezing, abdominal pain, diarrhea, constipation, steatorrhea, dysuria or foul-smelling urine. In the ED: Vital signs T 96.7, HR 86, RR 16, BP 157/76 and O2 saturation of 96% on RA. Labs showed leukocytosis without bandemia to 17.4, anemia to 12/36.1, plt 138 and unremarkable chem panel except for mildly elevated BUN to 23. AST 21, ALT 127, troponin <0.01, amylase 59, lipase 115. Abdomen/pelvis CT was done and showed airspace disease in the right middle and right lower lobe suggestive of pneumonia. Chronic moderate-size left pleural effusion and left lower lobe atelectasis/consolidation. Satisfactory position of gastrostomy tube. Patient is admitted to the general medicine floor and the following is the management: 1. Aspiration pneumonia (RLL) with left pleural effusion - Repeat CXR (07/11): Small left pleural effusion with associated left lower lobe volume loss and consolidation, unchanged from previous exam. Patchy parenchymal opacities in the right mid and lower lung zones, suspicious for pneumonia ( infectious versus chemical). * Patient hemodynamically stable saturating well on room air, no signs of sepsis * Blood cultures x 2 - NGTD * Follow up [facility] - re-ordered, follow the result * Urine for strep and legionella - negative * Cont IV unasyn 3 g Q6h pending culture results * Pulmonary consult with Dr. Glass placed, will follow up rec's * Pursue thoracentesis per pulm rec * Check CBC daily, trend WBC - improved to 10.3 today 2. Nausea and vomiting - improving DDx: gastroparesis vs rapid PEG tube feedings requring adjustment * Cont tube feeding via PEG tube * Appreciate nutrition recs regarding how long patient should remain NPO vs at what rate to restart tube feedings * Tigan PRN for nausea, avoid zofran * IV fluids D5 1/2NS at 50 cc/h for now while patient is NPO 3. Diabetes mellitus * Stop oral hypoglycemics * NPO sliding scale * FSGs Q6 while patient is NPO * Consideration for endocrinology consult with Dr. Bernard, patient's PCP 4. Influenza vaccination * Patient received flu shot on 07/09/16 FULL CODE DVTP: Lovenox SC Diet: NPO Mild Pain pathways Problem List: 1. Oropharyngeal dysphagia 2. Pneumonia Pain Ratin Pain Location: 0 Pain Goal: Remain pain free Pain Plan: Mild path Tomorrow's Labs & Rationales: CBC (monitor leukocytosis), BEP (monitor electrolytes while patient NPO) COURTNEY KABA MD 07/11/16 1609: Attending MD Review Statement Attending Statement Attending MD Statement: examined this patient, discuss w/resident/PA/WATCHER LOOKOUT TOWER, agreed w/resident/PA/WATCHER LOOKOUT TOWER, reviewed EMR data (avail) Attending Assessment/Plan: Agree with resident assessment and plan. Will treat for aspiration pneumonia with Unasyn, check sputum culture, repeat CXR Tuesday, pulmonary consult, aspiration precautions, PPI, hold tube feeds, continue home meds, monitor renal function, gentle IV hydration, DVT PPx. Will pursue thoracentesis of moderate left pleural effusion per pulmonary recommendations. Obtain PT, PTT, INR, consult IR and schedule procedure.
[2016-07-11 08:58] LABS: PT 13.8 SEC (9.4-12.5); PTT 33 SEC (25-37)
[2016-07-11 10:24] LABS: ABSOLUTE BASOPHIL COUNT 0 /CUMM (0.0-0.2); ABSOLUTE EOSINOPHIL COUNT 0.3 /CUMM (0.0-0.7); ABSOLUTE GRANULOCYTE CT 8.6 /CUMM (1.4-6.5); ABSOLUTE LYMPH COUNT 0.5 /CUMM (1.2-3.4); ABSOLUTE MONOCYTE COUNT 0.9 /CUMM (0.10-0.60); BASOPHIL % 0.4 % (0.0-2.0); EOSINOPHIL % 3.1 % (0-5); GRANULOCYTE % 83.1 % (42.2-75.2); HEMATOCRIT 29.3 % (42-52); MEAN CORPUSCULAR HGB 31.2 PG (27.0-31.0); MEAN CORPUSCULAR HGB CONC 33.5 G/DL (33.0-37.0); MEAN CORPUSCULAR VOLUME 93.3 FL (80.0-94.0); MEAN PLATELET VOLUME 12.2 FL (7.4-10.4); PLATELET COUNT 136 /CUMM (130-400); RBC DISTRIBUTION WIDTH 13.2 % (11.5-14.5); RED BLOOD CELL CT 3.14 /CUMM (4.70-6.10); WHITE BLOOD CELL COUNT 10.3 /CUMM (4.8-10.8)
--- NOTE | 2016-07-11 11:07 | RADIOLOGY REPORT ---
EXAMINATION: XR PORTABLE CHEST CLINICAL INFORMATION: Oropharyngeal dysphagia. Nausea. Vomiting. Presumptive diagnosis of aspiration pneumonia. COMPARISON: Chest x-ray dated 07/09/2016 and 07/11/2012. TECHNIQUE: AP semierect portable view of the chest was obtained. FINDINGS: The cardiomediastinal silhouette is within normal limits in size. As seen previously, there is a small left-sided pleural effusion with associated left basilar opacity, unchanged in the interim. There is also a patchy alveolar opacity in the right mid and lower lung, unchanged. No significant right-sided pleural effusion. No pneumothorax is seen. Mild degenerative changes are seen in the glenohumeral and acromioclavicular joints bilaterally. Osteopenia is suspected. Degenerative changes are also seen in the mid and lower thoracic spine. IMPRESSION: 1. Small left pleural effusion with associated left lower lobe volume loss and consolidation, unchanged from previous exam. 2. Patchy parenchymal opacities in the right mid and lower lung zones, suspicious for pneumonia (infectious versus chemical).
--- NOTE | 2016-07-11 11:41 | PN- Pulmonary ---
Subjective HPI/Critical Care Issues: She is comfortable on room air without respiratory complaints Objective Current Medications: Current Medications Sig/Lisa Start time Last Medication Dose Route Stop Time Status Admin Acetaminophen 650 MG .STK-MED ONE 07/10 2134 DC PO 07/10 2135 Acetaminophen 650 MG Q6P PRN 07/09 1715 AC PO Ampicillin Sodium/ 3,000 MG Q6 07/09 1815 AC 07/11 Sulbactam Sodium IV 0558 Sodium Chloride 100 ML Dextrose/Sodium 1,000 ML Q20H 07/09 1700 AC 07/11 Chloride IV 0933 Enoxaparin Sodium 40 MG DAILY 07/10 1000 AC 07/11 SC 0902 Famotidine 20 MG DAILY 07/11 1000 AC 07/11 PO 0902 Insulin Detemir 10 UNITS DAILY 07/10 1000 AC 07/11 SC 0901 Insulin Human Regular 0 Q6 07/09 1800 AC 07/11 SC 0657 Melatonin 5 MG ONCE ONE 07/11 0115 DC PO 07/11 0116 Omeprazole 20 MG DAILY AC 07/10 0945 DC PO Trimethobenzamide HCl 200 MG TID PRN 07/09 1715 AC IM Vital Signs & I&O Last 24 Hrs of Vitals and I&O: Vital Signs Date Time Temp Pulse Resp B/P Pulse O2 O2 Flow FiO2 Ox Delivery Rate 07/11 0735 98.4 77 20 121/64 94 Room Air 07/10 2354 98.7 80 19 130/66 94 Room Air 07/10 1540 99.2 79 20 140/62 97 Intake & Output 07/11 1600 07/11 0800 07/11 0000 Intake Total 850 655 Output Total Balance 850 655 Intake, IV 400 400 Intake, Oral 0 Intake, Tube 280 80 Feeding Intake, Tube 170 175 Irrigant Number 1 Bowel Movements Ox and saturation 94 on room air exam of his chest shows diminished breath sounds left base occasional rhonchi cardiac exam shows regular S1 and S2 without murmurs Impression/Plan Impression/Plan Impression/Plan: 89-year-old gentleman with presumed aspiration pneumonia. He's had a chronic pleural effusion of 6 months duration of uncertain etiology. Fact that this has been present for 6 months makes empyema less likely though the risk of seeding his effusion exists. Recommendations: Diagnostic and therapeutic thoracentesis of left pleural effusion. Obtain sputum C&S. Aspiration precautions. Discussed with housestaff. White count has improved on antibiotics continue current therapy
[2016-07-11 16:02] VITALS: BP 130/64
--- NOTE | 2016-07-11 16:10 | Admission Certification ---
Admission Certification Certification Statement - As attending physician, I certify that at the time of - admission, based on clinical presentation, severity of - symptoms, need for further diagnostic testing and - therapeutic interventions, and risk of adverse outcomes - without in-hospital treatment, in my clinical assessment, - this patient requires an acute hospital stay for a minimum - of two nights or longer. I have also considered psychsocial - factors such as support system, advanced age, financial - issues, cognitive issues, and failed out-patient treatments, - past re-admission history, safety of patient, and lack of - compliance as applicable. Specific rationale supporting this admission is: Aspiration pneumonia with parapneumonic effusion and hypoxia
[2016-07-11 22:25] VITALS: BP 130/62
--- NOTE | 2016-07-12 07:01 | PN- Housestaff ---
See Addendum Subjective Follow-up For: Aspiration pneumonia Nausea and vomiting Subjective: Patient seen and examined at bedside this AM. He reports he feels well, though he has not gotten out of the bed much. He denies having any pain post- thoracentesis and reports his respiratory status is at baseline and adequate. Review of Systems Constitutional: Denies: chills, fever, malaise. EENTM: Denies: blurred vision, visual changes, hearing changes. Cardiovascular: Denies: chest pain, palpitations. Respiratory: Denies: cough, short of breath, sputum production, wheezing. Gastrointestinal: Denies: abdominal pain, bloating, constipation, nausea, vomiting. Genitourinary: Denies: frequency. Musculoskeletal: Denies: back pain. Skin: Denies: change in skin color, change in hair/nails. Neurological/Psychological: Denies: confusion. Hematologic/Endocrine: Denies: bruising, bleeding. Objective Last 24 Hrs of Vital Signs/I&O Vital Signs Date Time Temp Pulse Resp B/P Pulse O2 O2 Flow FiO2 Ox Delivery Rate 07/12 1015 98.0 90 20 142/78 95 Room Air 07/12 0826 98.2 76 20 104/63 95 Room Air 07/12 0000 Room Air 07/11 2225 98.6 82 20 130/62 94 Room Air 07/11 1602 98.3 93 18 130/64 96 Intake & Output 07/12 1600 07/12 0800 07/12 0000 Intake Total 500 935 615 Output Total 600 300 650 Balance -100 635 -35 Intake, IV 500 400 200 Intake, Oral 0 0 Intake, Tube 360 240 Feeding Intake, Tube 175 175 Irrigant Number 1 Bowel Movements Output, Urine 600 300 650 Physical Exam General Appearance: Alert, Oriented X3, Cooperative, No Acute Distress Other Physical Findings: Skin: No Significant Lesion HEENT: Atraumatic, Mucous Membr. moist/pink, Poor gag reflex noted during examination. Neck: Supple, No JVD Lymphatic: Cervical nl Cardiovascular: Normal S1, Normal S2, Systolic murmur left sternal border. Lungs: Normal Air Movement, Bibasilar crackles appreciated Abdomen: Soft, No Tenderness, Decreased bowel sounds x 4 quadrants. PEG tube in place and clean. Neurological: Normal Speech, Normal Tone Extremities: No Clubbing, No Cyanosis, No Edema Current Medications: Current Medications Sig/Lisa Start time Last Medication Dose Route Stop Time Status Admin Acetaminophen 650 MG Q6P PRN 07/09 1715 AC PO Ampicillin Sodium/ 3,000 MG Q6 07/09 1815 AC 07/12 Sulbactam Sodium IV 1149 Sodium Chloride 100 ML Dextrose/Sodium 1,000 ML Q20H 07/09 1700 DC 07/12 Chloride IV 0841 Enoxaparin Sodium 40 MG DAILY 07/10 1000 AC 07/11 SC 0902 Famotidine 20 MG DAILY 07/11 1000 DC 07/11 PO 0902 Insulin Aspart 0 TIDAC 07/12 1200 AC SC Insulin Detemir 10 UNITS DAILY 07/10 1000 AC 07/12 SC 1105 Insulin Human Regular 0 Q6 07/09 1800 DC 07/12 SC 0755 Omeprazole 20 MG DAILY AC 07/11 1721 DC PO Pantoprazole Sodium 40 MG DAILY 07/11 1819 AC 07/12 IV 0840 Trimethobenzamide HCl 200 MG TID PRN 07/09 1715 AC IM Last 24 Hrs of Lab/Bradley Results Last 24 Hrs of Labs/Mics: Laboratory Tests 07/12/16 0940: Pleural pH 7.43 07/12/16 0940: Fluid WBC 1981 H, Fld Mesothelial Cells , Fld Total RBCs Counted 9642 H 07/12/16 0940: Lymphocytes 56, % Normal PMNs 15, Phlebotomy Draw Site LT THORACENTESIS, Fluid Glucose 116, Fluid Total Protein 4.7, Fluid Albumin 1.7, Fluid LDH 505, Fluid Amylase < 30 07/12/16 0705: APTT Cancelled 07/12/16 0705: PT 13.0 H, INR 1.24 H, APTT 33, CBC w Diff NO MAN DIFF REQ, RBC 3.02 L, MCV 92.0, MCH 31.2 H, RDW 13.3, MPV 11.7 H, Gran % 76.3 H, Lymphocytes % 6.3 L, Monocytes % 12.4 H, Eosinophils % 4.5, Basophils % 0.5, Absolute Granulocytes 6.2, Absolute Lymphocytes 0.5 L, Absolute Monocytes 1.0 H, Absolute Eosinophils 0.4, Absolute Basophils 0, PUBS MCHC 33.9 Microbiology 07/12 939 BODY FLUID: Body Fluid Culture - RECD 07/12 939 BODY FLUID: Gram Stain - RECD Orders Radiology Findings: EXAMINATION: CLINICAL INFORMATION: Patient status post left-sided thoracentesis. COMPARISON: 07/11/2016. TECHNIQUE: Single PA view of the chest was obtained. FINDINGS: Compared to the prior study there's been a decrease in the left-sided pleural effusion. Some blunting persists of the left lateral costophrenic angle. There is volume loss in the left lower lobe. Right infrahilar infiltrate is noted and a mass in this area cannot be excluded. Degenerative changes are noted in the shoulders. A partially visualized drainage catheter is seen overlying the upper abdomen. IMPRESSION: No pneumothorax status post left-sided thoracentesis. Left-sided effusion appears decreased but blunting still persists. Assessment/Plan Assessment: Mr. 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 This nausea and vomiting is intermittent and relieved with discontinuation of his tube feeding; he has not tried any medications for relief. He does admit to increased oral secretions requiring intermittent suctioning at home. Patient denies any other symptoms, including fever, chills, confusion, throat pain, palpitations, chest pain, shortness of breath, wheezing, abdominal pain, diarrhea, constipation, steatorrhea, dysuria or foul-smelling urine. In the ED: Vital signs T 96.7, HR 86, RR 16, BP 157/76 and O2 saturation of 96% on RA. Labs showed leukocytosis without bandemia to 17.4, anemia to 12/36.1, plt 138 and unremarkable chem panel except for mildly elevated BUN to 23. AST 21, ALT 127, troponin <0.01, amylase 59, lipase 115. Abdomen/pelvis CT was done and showed airspace disease in the right middle and right lower lobe suggestive of pneumonia. Chronic moderate-size left pleural effusion and left lower lobe atelectasis/consolidation. Satisfactory position of gastrostomy tube. Patient is admitted to the general medicine floor and the following is the management: 1. Aspiration pneumonia (RLL) with left pleural effusion * Patient hemodynamically stable saturating well on room air, no signs of sepsis * Blood cultures x 2- NGTD * Follow up [facility] - re-ordered, follow the result * Urine for strep and legionella - negative * Cont IV unasyn 3 g Q6h pending culture results * Pulmonary consult with Dr. Glass placed, will follow up rec's * Repeat CXR (07/11): Small left pleural effusion with associated left lower lobe volume loss and consolidation, unchanged from previous exam. Patchy parenchymal opacities in the right mid and lower lung zones, suspicious for pneumonia ( infectious versus chemical). * Patient had thoracentesis today, about 600 cc removed as per IR. Awaiting LDH and protein levels to compare pleural fluid to total body LDH/protein. * Check CBC daily, trend WBC - improved to 8.3 today 2. Nausea and vomiting - improving * DDx: gastroparesis vs rapid PEG tube feedings requring adjustment * Cont tube feeding via PEG tube, patient at goal with glucerna 1.2 * Awaiting results of swallow evaluation * Tigan PRN for nausea, avoid zofran 3. Diabetes mellitus * Stop oral hypoglycemics * NSS TID AC/HS * FSGs TIDAC/HS * Consideration for endocrinology consult with Dr. Bernard, patient's PCP 4. Influenza vaccination * Patient received flu shot on 07/09/16 FULL CODE DVTP: Lovenox SC Diet: NPO Mild Pain pathways Problem List: 1. Oropharyngeal dysphagia 2. Vocal cord paralysis 3. Pneumonia 4. Leukocytosis Pain Ratin Pain Location: n/a Pain Goal: Remain pain free Pain Plan: Mild pathway. Tomorrow's Labs & Rationales: CBC due to decreasing white count.
--- NOTE | 2016-07-12 08:01 | PN- Pulmonary ---
Subjective HPI/Critical Care Issues: Patient feels well without further emesis he has no respiratory complaints Objective Current Medications: Current Medications Sig/Lisa Start time Last Medication Dose Route Stop Time Status Admin Acetaminophen 650 MG Q6P PRN 07/09 1715 AC PO Ampicillin Sodium/ 3,000 MG Q6 07/09 1815 AC 07/12 Sulbactam Sodium IV 0755 Sodium Chloride 100 ML Dextrose/Sodium 1,000 ML Q20H 07/09 1700 AC 07/11 Chloride IV 0933 Enoxaparin Sodium 40 MG DAILY 07/10 1000 AC 07/11 SC 0902 Famotidine 20 MG DAILY 07/11 1000 DC 07/11 PO 0902 Insulin Detemir 10 UNITS .STK-MED ONE 07/11 0854 DC AL 07/11 0855 Insulin Detemir 10 UNITS DAILY 07/10 1000 07/11 SC 0901 Insulin Human Regular 0 Q6 07/09 1800 AC 07/12 SC 0755 Omeprazole 20 MG DAILY AC 07/11 1721 DC PO Pantoprazole Sodium 40 MG DAILY 07/11 1819 07/11 IV 2236 Trimethobenzamide HCl 200 MG TID PRN 07/09 1715 AC IM Vital Signs & I&O Last 24 Hrs of Vitals and I&O: Vital Signs Date Time Temp Pulse Resp B/P Pulse O2 O2 Flow FiO2 Ox Delivery Rate 07/12 0000 Room Air 07/11 2225 98.6 82 20 130/62 94 Room Air 07/11 1602 98.3 93 18 130/64 96 Intake & Output 07/12 1600 07/12 0800 07/12 0000 Intake Total 615 Output Total 650 Balance -35 Intake, IV 200 Intake, Oral 0 Intake, Tube 240 Feeding Intake, Tube 175 Irrigant Output, Urine 650 Oxygen 94% exam of his chest shows diminished breath sounds at the left base there are no wheezes cardiac exam shows regular S1 and S2 without murmurs Impression/Plan Impression/Plan Impression/Plan: 89-year-old gentleman with presumed aspiration pneumonia. He's had a chronic pleural effusion of 6 months duration of uncertain etiology. Fact that this has been present for 6 months makes empyema less likely though the risk of seeding his effusion exists. Recommendations: Follow-up following thoracentesis if unrevealing can convert to oral antibiotics and consider discharge
[2016-07-12 08:26] VITALS: BP 104/63
[2016-07-12 08:59] LABS: PTT 33 SEC (25-37)
--- NOTE | 2016-07-12 09:05 | NUR ---
NURSING NOTE: PT LEFT FLOOR VIA STRETCHER WITH DISTRIBUTION FOR THORACENTESIS. PT AWAKE, A/OX3, ROOM AIR, PEG TUBE CLAMPT. IVF PER MD ORDER, NPO. TICKET TO RIDE COMPLETE, PREPROCEDURE CHECKLIST AND STAMPER/MED LIST SENT, AWAIT RETRN TO FLOOR/
[2016-07-12 09:31] LABS: ABSOLUTE BASOPHIL COUNT 0 /CUMM (0.0-0.2); ABSOLUTE EOSINOPHIL COUNT 0.4 /CUMM (0.0-0.7); ABSOLUTE GRANULOCYTE CT 6.2 /CUMM (1.4-6.5); ABSOLUTE LYMPH COUNT 0.5 /CUMM (1.2-3.4); BASOPHIL % 0.5 % (0.0-2.0); EOSINOPHIL % 4.5 % (0-5); GRANULOCYTE % 76.3 % (42.2-75.2); HEMATOCRIT 27.8 % (42-52); MEAN CORPUSCULAR HGB 31.2 PG (27.0-31.0); MEAN CORPUSCULAR HGB CONC 33.9 G/DL (33.0-37.0); MEAN PLATELET VOLUME 11.7 FL (7.4-10.4); PLATELET COUNT 131 /CUMM (130-400); RBC DISTRIBUTION WIDTH 13.3 % (11.5-14.5); RED BLOOD CELL CT 3.02 /CUMM (4.70-6.10); WHITE BLOOD CELL COUNT 8.1 /CUMM (4.8-10.8)
[2016-07-12 10:15] VITALS: BP 142/78
--- NOTE | 2016-07-12 10:15 | NUR ---
NURSING NOTE: PT BACK TO FLOOR VIA STRETCHER WITH DISTRIBUTIION FROM THORACENTESIS; L BANDAID INTACT; REMOVED 600ML BLOOD TINGED FLUID PER US NURSE. VITALS OBTAINED AND STABLE, BED ALARM IN USE, ROOM AIR, DENIES PAIN, TACK CUTTER AWARE PT BACK TO FLOOR.
--- NOTE | 2016-07-12 10:40 | RADIOLOGY REPORT ---
EXAMINATION:\H\ \N\XR CHEST CLINICAL INFORMATION: Patient status post left-sided thoracentesis. COMPARISON: 07/11/2016. TECHNIQUE: Single PA view of the chest was obtained. FINDINGS: Compared to the prior study there's been a decrease in the left-sided pleural effusion. Some blunting persists of the left lateral costophrenic angle. There is volume loss in the left lower lobe. Right infrahilar infiltrate is noted and a mass in this area cannot be excluded. Degenerative changes are noted in the shoulders. A partially visualized drainage catheter is seen overlying the upper abdomen. IMPRESSION: No pneumothorax status post left-sided thoracentesis. Left-sided effusion appears decreased but blunting still persists.
[2016-07-12 16:20] VITALS: BP 142/68
--- NOTE | 2016-07-12 16:29 | Patient Discharge Instructions ---
See Addendum Discharge Instructions General Discharge Information You were seen/treated for: Aspiration pneumonia Nausea and vomiting Pleural effusion Special Instructions: Please follow up with your PCP within 1 week of discharge for continued care. Please continue tube feeds as directed from the log chain worker. Please do 24 hours a day of tube feeds with rate at 60 cc/h. Continue to use glucerna 1.2. Please do not eat/drink anything orally. Please do aspiration precautions. FOLLOW UP at the log chain worker's office for continued management of tube feeds as needed. Please have a follow up CT scan of your chest without IV contrast shortly after finishing your oral antibiotics. Send results to Dr. Bernard, your PCP. Please take all medications as directed. Please follow up with Dr. Glass, pulmonology. He will continue outpatient workup up pleural effusion, including possible QuantiFERON Gold and collagen vascular workup. Diet Recommended Diet: Tube feeds, glucerna 1.2 Activity Activity Self Limited: Yes Acute Coronary Syndrome Inclusion Criteria At DC or during hospital stay patient has or had the following: ACS DIAGNOSIS No Discharge Core Measures Meds if any: Prescribed or Continued at Discharge Meds if any: NOT Prescribed or Continued at Discharge Congestive Heart Failure Inclusion Criteria At DC or during hospital stay patient has or had the following: CHF DIAGNOSIS No Discharge Core Measures Meds if any: Prescribed or Continued at Discharge Meds if any: NOT Prescribed or Continued at Discharge Cerebrovascular accident Inclusion Criteria At DC or during hospital stay patient has or had the following: CVA/TIA Diagnosis No Discharge Core Measures Meds if any: Prescribed or Continued at Discharge Meds if any: NOT Prescribed or Continued at Discharge Venous thromboembolism Inclusion Criteria VTE Diagnosis No VTE Type NONE VTE Confirmed by (Test) NONE Discharge Core Measures - Per Current guidelines, there needs to be overlap - treatment for the first 5 days of Warfarin therapy. - If discharged on Warfarin prior to 5 days of - overlap therapy, the patient will need to be - assessed for post discharge needs including - *Post discharge parental anticoagulation - *Warfarin and/or parental anticoagulation education - *Follow up date to check INR post discharge At least 5 days overlap therapy as Inpatient No Meds if any: Prescribed or Continued at Discharge Note: Overlap Therapy is Warfarin and Anticoagulant Meds if any: NOT Prescribed or Continued at Discharge
--- NOTE | 2016-07-12 16:40 | ULTRASOUND REPORT ---
PROCEDURE: Thoracentesis CLINICAL INFORMATION: Pleural Effusion COMPARISON: Chest x-ray 07/11/2016 TECHNIQUE: Indirect ultrasound guided thoracentesis using a 5 Palestinian Yueh catheter. FINDINGS: Informed consent was obtained from the patient prior to the procedure. During this process, the procedure alternatives were explained, along with the intended outcome and benefits. The risks of the procedure, as well as the risk of not doing the procedure, was discussed. The patient was given the opportunity to ask questions regarding the procedure and appeared competent to make medical decisions. A signed consent form which documents this discussion was placed in the medical record. A timeout procedure was performed. Ultrasound evaluation of the chest for pleural fluid was performed. A moderate pleural effusion is noted on the left side. Using standard interventional and sterile techniques, lidocaine was used to anesthetize the region. A 5 [place] catheter was introduced into the left pleural fluid using standard safety needle technique. Approximately 600 mL of blood-tinged, nonclotting fluid was removed into the Vacutainer bottles. The catheter was then removed. Good hemostasis was achieved. The patient tolerated the procedure well. A sterile dressing was placed. The patient was discharged from the department in stable condition. Post procedure x-ray demonstrates no pneumothorax. COMPLICATIONS: None. IMPRESSION: Successful ultrasound-guided thoracentesis of approximately 600 mL of fluid.
--- NOTE | 2016-07-12 19:25 | NUR ---
1700 ALERT AND ORIENTED X 3. VITAL SIGNS STABLE. ON 3L O2 VIA NASAL CANNULA MEDICATION GIVEN FOR PAIN BED LOW AND LOCKED. CALL LIGHT WITHIN REACH 1740 SUR[place] PA CALLED ABOUT R GROIN BLEEDING. COMPRESSION DRESSING PUT ON [place]IG[place] SITE PER ORDER WILL CONTINUE TO MONITOR
[2016-07-12] MEDS ORDERED: AUGMENTIN 875-1 EACH PO (20:08)
--- NOTE | 2016-07-12 20:13 | Discharge Summary ---
Visit Information Visit Dates Admission Date: 07/09/16 Discharge Date: 07/15/16 Hospital Course Course Attending Physician: THALIA BETHEA M.D Primary Care Physician: ALVINA BERNARD MD Consulting Request: Consulting Specialty: Pulmonary Disease Consulting Physician: Dr. Glass Reason for Consult: Aspiration pneumonia with parapneumonic effusion Hospital Course: Ms. 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 This nausea and vomiting was intermittent and relieved with discontinuation of his tube feeding; he did not try any medications for relief. He did admit to increased oral secretions requiring intermittent suctioning at home. Patient denied any other symptoms, including fever, chills, confusion, throat pain, palpitations, chest pain, shortness of breath, wheezing, abdominal pain, diarrhea, constipation, steatorrhea, dysuria or foul-smelling urine. In the ED: Vital signs T 96.7, HR 86, RR 16, BP 157/76 and O2 saturation of 96% on RA. Labs showed leukocytosis without bandemia to 17.4, anemia to 12/36.1, plt 138 and unremarkable chem panel except for mildly elevated BUN to 23. AST 21, ALT 127, troponin <0.01, amylase 59, lipase 115. Abdomen/pelvis CT was done and showed airspace disease in the right middle and right lower lobe suggestive of pneumonia. Chronic moderate-size left pleural effusion and left lower lobe atelectasis/consolidation. Satisfactory position of gastrostomy tube. Patient was admitted to the general medicine floor and the following was the management: 1. Aspiration pneumonia (RLL) with left pleural effusion: Patient was admitted to the general medicine floor as he was hemodynamically stable and saturated well on room air without signs of sepsis. Blood, lower respiratory, and urine cultures as well as urine for strep/legionella antigens were drawn (all ultimately negative). He was placed on IV unasyn and aspiration precautions. He was initially NPO but after nutrition consult he was restarted on glucerna 1.2 at 10 cc/h and titrated up to goal of 60 cc/h for 24 h/day. Due to effusion, patient was take to interventional radiology and had a thoracentesis that revealed an exudative pleural effusion. Pleural fluid was suggestive of an exudative effusion, pathology was not suggestive of malignancy. It was also sent for AFB which was pending on discharge. IV antibiotics were ultimately switched to oral augmentin to complete a total 2 week course of antibiotics. He was discharged with instructions to follow up with Dr. Glass for further workup of the underlying etiology of his effusion, including a possible quanitferon gold and collagen vascular work. He is also to follow up within [address] Bernard, his PCP. Of note, patient did not pass a formal swallow evaluation so a modified barium swallow was performed which proved that patient cannot take anything by mouth. 2. Nausea and vomiting: As noted above, patient initially made NPO while admitted to the general medicine floor. Differential included gastroparesis vs agressive tube feedings requiring adjustment. Patient was started on IV fluids and tigan as needed for nausea. Nutrition consult was obtained who restarted glucerna 1.2 at 10 cc/h with a titration up to 60 cc/h. Nutrition suggested formal swallow evaluation due to the fact that patient is high risk of aspiration. He did not pass formal swallow evaluation and modified barium swallow was ordered. Modified barium swallow was suggestive of spillage of contrast into trachea. Speech pathology suggested no oral intake and sole nutrition/hydration through the PEG tube. He was discharged with tube feed instructions including 60 cc/h of glucerna 1.2 continuously for 24h/day. He was instructed to follow up with his wood web weaving machine operator Chantelle within 1 week of discharge. He would greatly benefit from a hospital bed so he can sleep with the head of his bed raised as an aspiration precaution. 3. Diabetes mellitus: Oral hypoglycemics were held on admission and patient was initially started on NPO insulin coverage. As patient was started on his tube feedings, he was switched to a novolog sliding scale with meals and at bedtime. His glucose levels remained well controlled and he was discharged with instructions to resume his home diabetic regimen. He should follow up with Dr. Bernard after discharge for continued care and management of diabetes mellitus. 4. Diarrhea: Patient was noted to have 2 loose bowel movement on 07/13/16. This stool was sent for C.Diff testing and was found to be negative for C.Diff toxin A. He had no further loose bowel movements and progressed without issue. 5. Diet: Glucerna 1.2 at goal 60 cc/h for 24 h/day 6. DVT prophylaxis: Lovenox SC 7. Code: FULL Complications: None. Allergies: Coded Allergies: NO KNOWN ALLERGIES (11/21/15) Significant Procedures: EXAMINATION: CT ABDOMEN AND PELVIS WITH CONTRAST CLINICAL INFORMATION: Abdominal pain. Nausea and vomiting. COMPARISON: Previous CT scan January 2016 TECHNIQUE: Multidetector volumetric imaging was performed of the abdomen and pelvis before and after the IV administration of 95 mL of Optiray 320 intravenous contrast. Sagittal and coronal reformatted images were obtained on the technologist's workstation. DLP: 305 mGy-cm. FINDINGS: LUNG BASES: There are new patchy areas of airspace disease seen in the right middle lobe and right lower lobe suggestive of bronchopneumonia. There is a moderate left pleural effusion and left lower lobe compressive atelectasis that is unchanged. LIVER, GALLBLADDER, AND BILIARY TREE: The liver is normal in size, shape, and attenuation. No focal hepatic lesion or biliary ductal dilatation is present. The gallbladder is unremarkable with no evidence of radiopaque gallstones, gallbladder wall thickening, or obvious pericholecystic inflammatory changes. PANCREAS: Unremarkable. SPLEEN: Unremarkable. ADRENAL GLANDS: Unremarkable. KIDNEYS AND URETERS: The kidneys are normal in size, shape, and attenuation. No hydronephrosis, hydroureter, or calculi seen. No perinephric stranding. BLADDER: Unremarkable. GASTROINTESTINAL TRACT: The small and large bowel are unremarkable. The appendix is unremarkable. There is a gastrostomy tube in the stomach. No ascites or free air is seen. ABDOMINAL WALL: No significant hernia is appreciated. LYMPH NODES: Normal. VASCULAR: Unremarkable. PELVIC VISCERA: Unremarkable. OSSEOUS STRUCTURES: There are severe degenerative changes of the spine. There may be postsurgical change at L4 and L5. There are linear calcifications in the spinal canal from L4-L5 to L5-S1 that are stable. IMPRESSION: New airspace disease in the right middle and right lower lobe suggestive of pneumonia. Chronic moderate-size left pleural effusion and left lower lobe atelectasis/consolidation. Satisfactory position of gastrostomy tube. EXAMINATION: XR CHEST CLINICAL INFORMATION: Nausea, vomiting and PEG tube COMPARISON: 05/03/2013 TECHNIQUE: AP and lateral FINDINGS: There is obscuration of the left hemidiaphragm in addition to moderate left pleural effusion. The left upper lobe is clear. The right lung is clear aside from patchy nonspecific small opacities at the right lung base. No right pleural effusion. The cardiac and mediastinal contours appear stable. Calcifications noted at the level of the aortic arch. The outline of a tube terminating within the left upper quadrant is visualized consistent with history provided of PEG. IMPRESSION: 1. Left lower lobe consolidation with moderate associated effusion. Underlying pneumonia cannot be excluded. 2. New tiny patchy opacities at the right lung base. Multifocal pneumonia cannot be excluded. CLINICAL INFORMATION: Patient status post left-sided thoracentesis. COMPARISON: 07/11/2016. TECHNIQUE: Single PA view of the chest was obtained. FINDINGS: Compared to the prior study there's been a decrease in the left-sided pleural effusion. Some blunting persists of the left lateral costophrenic angle. There is volume loss in the left lower lobe. Right infrahilar infiltrate is noted and a mass in this area cannot be excluded. Degenerative changes are noted in the shoulders. A partially visualized drainage catheter is seen overlying the upper abdomen. IMPRESSION: No pneumothorax status post left-sided thoracentesis. Left-sided effusion appears decreased but blunting still persists. EXAMINATION: XR MODIFIED BARIUM SWALLOW CLINICAL INFORMATION: High aspiration risk. Possible aspiration pneumonia. COMPARISON: None. TECHNIQUE: Fluoroscopic assistance was provided during a modified barium swallow performed in coordination with the speech pathology service. FLUOROSCOPY TIME: 2 minutes, 8 seconds FINDINGS: The modified barium swallow examination was performed in cooperation with the speech pathologist using dynamic fluoroscopic imaging in a lateral projection. The patient's swallowing function was observed during administration of apple sauce puree, honey, nectar, and thin barium contrast. There was spillage of material into the vallecula prior to initiation of swallows. There was persistent pooling of barium coated material within the vallecula and piriform sinuses without significant clearing after patient was instructed to cough. Trace tracheal penetration was observed with thin barium contrast. Please refer to the speech pathology report regarding their assessment and treatment recommendations. IMPRESSION: Delayed initiation of swallowing after spillage of contrast material into the vallecula, and there was persistent pooling of contrast within the vallecula and piriform sinuses. Tracheal penetration occurred with thin barium contrast. Please refer to the speech pathology report regarding their assessment and treatment recommendations. Disposition Summary Disposition Principal Diagnosis: Aspiration pneumonia with parapneumonic effusion. Additional Diagnosis: Type 2 DM Oropharyngeal dysphagia secondary to vocal cord paralysis on PEG tube Prostate cancer Osteoarthritis Discharge Disposition: home health services Discharge Instructions General Discharge Information Code Status: Full Code Patient's Diet: Glucerna 1.2 with 175 cc water flush every 6 hours. Goal rate is 60 cc/h. Patient to remain NPO with tube feeds. Patient's Activity: Self-limited, as tolerated. Follow-Up Instructions/Appts: Please follow up with your PCP within 1 week of discharge for continued care. Please continue tube feeds as directed from the wood web weaving machine operator. Please do 24 hours a day of tube feeds with rate at 60 cc/h. Continue to use glucerna 1.2. Please do not eat/drink anything orally. Please do aspiration precautions. FOLLOW UP at the wood web weaving machine operator's office for continued management of tube feeds as needed. Please have a follow up CT scan of your chest without IV contrast shortly after finishing your oral antibiotics. Send results to Dr. Bernard, your PCP. Please take all medications as directed. Please follow up with Dr. Glass, pulmonology. He will continue outpatient workup up pleural effusion, including possible QuantiFERON Gold and collagen vascular workup. Medications at Discharge Discharge Medications: Continue taking these medications: Pioglitazone Hydrochloride (Pioglitazone Hydrochloride) 30 MG TAB 1 Tablet ORAL DAILY Qty = 30 Insulin Glargine,Hum.rec.anlog (Lantus Solostar) 100 UNIT/ML (3 ML) INSULN.PEN 10 Unit Inject into fatty tissue DAILY Qty = 15 Comments: Last Taken: 07/15/16 Time: 0900AM Metformin HCl (Metformin HCl) 500 MG TABLET 1 Tablet ORAL TWICE DAILY Qty = 60 Comments: NOT GIVEN IN HOSPITAL Start taking the following new medications: Amoxicillin/Potassium Clav (Augmentin 875-125 Tablet) 875 MG-125 MG TABLET 1 Tablet ORAL TWICE DAILY Qty = 8 No Refills Comments: Last Taken: 07/15/16 Time: 0900AM Trimethobenzamide HCl (Tigan) 300 MG CAPSULE 1 Tablet ORAL THREE TIMES A DAY NEEDED as needed for NAUSEA Qty = 30 No Refills Comments: TIGAN IM GIVEN 07/15/16 @0800AM Copies To: TUTU VALLEJO,MILLY Goodwin; ALISHA VALLEJO,ALVINA Sotelo Attending MD Review Statement Documenting Attending: THALIA BETHEA M.D Other Findings: I have reviewed the discharge summary.
--- NOTE | 2016-07-12 20:40 | NUR ---
1600 ALERT AND ORIENTED X 3. VITAL SIGNS STABLE NO DISCOMFORT NOTED. TUBE FEED RUNNING AT GOAL RATE SKIN IS CLEAN, DRY AND INTACT PATIENT RESTING COMFORTABLY AT THIS TIME. WILL CONTINUE TO MONITOR
[2016-07-13 00:44] VITALS: BP 110/70
--- NOTE | 2016-07-13 06:57 | PN- Housestaff ---
See Addendum Subjective Follow-up For: Aspiration PNA Nausea and vomiting Subjective: Patient seen and examined at bedside this AM. He continues to deny abdominal pain, nausea, vomiting, weakness, chest pain, shortness of breath or sputum production. He is amenable to modified barium swallow today. Review of Systems Constitutional: Denies: chills, fever, malaise. EENTM: Denies: blurred vision, visual changes, hearing changes. Cardiovascular: Denies: chest pain, palpitations. Respiratory: Denies: cough, short of breath, sputum production, wheezing. Gastrointestinal: Denies: abdominal pain, bloating, constipation, diarrhea, nausea, vomiting. Genitourinary: Denies: dysuria. Musculoskeletal: Denies: back pain. Skin: Denies: change in skin color, change in hair/nails. Neurological/Psychological: Denies: confusion, headache, numbness. Hematologic/Endocrine: Denies: bruising, bleeding. Objective Last 24 Hrs of Vital Signs/I&O Vital Signs Date Time Temp Pulse Resp B/P Pulse O2 O2 Flow FiO2 Ox Delivery Rate 07/13 0854 97.6 89 20 100/62 94 07/13 0044 100.1 96 20 110/70 94 Room Air 07/12 1620 99.2 90 20 142/68 95 Intake & Output 07/13 1600 07/13 0800 07/13 0000 Intake Total 855 Output Total 300 275 Balance 555 -275 Intake, IV 200 Intake, Tube 480 Feeding Intake, Tube 175 Irrigant Number 1 Bowel Movements Output, Urine 300 275 Physical Exam General Appearance: Alert, Oriented X3, Cooperative, No Acute Distress Skin: No Rashes, No Significant Lesion HEENT: Atraumatic, Mucous Membr. moist/pink Neck: Supple Lymphatic: Cervical nl Cardiovascular: Normal S1, Normal S2, Systolic murmur appreciated. Lungs: Normal Air Movement, Mild bibasilar crackles, upper lung irwin clear Abdomen: Normal Bowel Sounds, Soft, No Tenderness, No Hepatospenomegaly, No Masses, Area around PEG tube clean and dry with no signs of erythema Neurological: Normal Speech, Normal Tone Extremities: No Clubbing, No Cyanosis, No Edema Vascular: Pulses Symmetrical Current Medications: Current Medications Sig/Lisa Start time Last Medication Dose Route Stop Time Status Admin Acetaminophen 650 MG Q6P PRN 07/09 1715 AC PO Amoxicillin/ 875 MG Q12 07/13 1000 AC Clavulanate Potassium PO Ampicillin Sodium/ 3,000 MG Q6 07/09 1815 DC 07/13 Sulbactam Sodium IV 0621 Sodium Chloride 100 ML Dextrose/Sodium 1,000 ML Q20H 07/09 1700 DC 07/12 Chloride IV 0841 Enoxaparin Sodium 40 MG DAILY 07/10 1000 AC 07/13 SC 0950 Insulin Aspart 0 TIDAC 07/12 1200 DC 07/12 SC 1830 Insulin Detemir 10 UNITS .STK-MED ONE 07/12 1100 DC SC 07/12 1101 Insulin Detemir 10 UNITS DAILY 07/10 1000 AC 07/13 SC 0950 Insulin Human Regular 0 Q6 07/13 0600 AC 07/13 SC 0633 Insulin Human Regular 0 Q6 07/09 1800 DC 07/12 SC 0755 Pantoprazole Sodium 40 MG DAILY 07/11 1819 AC 07/13 IV 0950 Trimethobenzamide HCl 200 MG TID PRN 07/09 1715 AC IM Last 24 Hrs of Lab/Bradley Results Last 24 Hrs of Labs/Mics: Laboratory Tests 07/13/16 0710: CBC w Diff NO MAN DIFF REQ, RBC 2.91 L, MCV 92.0, MCH 30.9, RDW 13.2, MPV 11.6 H, Gran % 81.3 H, Lymphocytes % 3.9 L, Monocytes % 13.0 H, Eosinophils % 1.3, Basophils % 0.5, Absolute Granulocytes 7.2 H, Absolute Lymphocytes 0.3 L, Absolute Monocytes 1.1 H, Absolute Eosinophils 0.1, Absolute Basophils 0, PUBS MCHC 33.5 07/12/16 1450: Lactate Dehydrogenase 412, Total Protein 6.4, Albumin 2.9 L Orders Radiology Findings: CXR 07/12/16: CLINICAL INFORMATION: Patient status post left-sided thoracentesis. COMPARISON: 07/11/2016. TECHNIQUE: Single PA view of the chest was obtained. FINDINGS: Compared to the prior study there's been a decrease in the left-sided pleural effusion. Some blunting persists of the left lateral costophrenic angle. There is volume loss in the left lower lobe. Right infrahilar infiltrate is noted and a mass in this area cannot be excluded. Degenerative changes are noted in the shoulders. A partially visualized drainage catheter is seen overlying the upper abdomen. IMPRESSION: No pneumothorax status post left-sided thoracentesis. Left-sided effusion appears decreased but blunting still persists. Miscellaneous Findings: 07/09/16 CT: EXAMINATION: CT ABDOMEN AND PELVIS WITH CONTRAST CLINICAL INFORMATION: Abdominal pain. Nausea and vomiting. COMPARISON: Previous CT scan January 2016 TECHNIQUE: Multidetector volumetric imaging was performed of the abdomen and pelvis before and after the IV administration of 95 mL of Optiray 320 intravenous contrast. Sagittal and coronal reformatted images were obtained on the technologist's workstation. DLP: 305 mGy-cm. FINDINGS: LUNG BASES: There are new patchy areas of airspace disease seen in the right middle lobe and right lower lobe suggestive of bronchopneumonia. There is a moderate left pleural effusion and left lower lobe compressive atelectasis that is unchanged. LIVER, GALLBLADDER, AND BILIARY TREE: The liver is normal in size, shape, and attenuation. No focal hepatic lesion or biliary ductal dilatation is present. The gallbladder is unremarkable with no evidence of radiopaque gallstones, gallbladder wall thickening, or obvious pericholecystic inflammatory changes. PANCREAS: Unremarkable. SPLEEN: Unremarkable. ADRENAL GLANDS: Unremarkable. KIDNEYS AND URETERS: The kidneys are normal in size, shape, and attenuation. No hydronephrosis, hydroureter, or calculi seen. No perinephric stranding. BLADDER: Unremarkable. GASTROINTESTINAL TRACT: The small and large bowel are unremarkable. The appendix is unremarkable. There is a gastrostomy tube in the stomach. No ascites or free air is seen. ABDOMINAL WALL: No significant hernia is appreciated. LYMPH NODES: Normal. VASCULAR: Unremarkable. PELVIC VISCERA: Unremarkable. OSSEOUS STRUCTURES: There are severe degenerative changes of the spine. There may be postsurgical change at L4 and L5. There are linear calcifications in the spinal canal from L4-L5 to L5-S1 that are stable. IMPRESSION: New airspace disease in the right middle and right lower lobe suggestive of pneumonia. Chronic moderate-size left pleural effusion and left lower lobe atelectasis/consolidation. Satisfactory position of gastrostomy tube. Assessment/Plan Assessment: Mr. 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 This nausea and vomiting is intermittent and relieved with discontinuation of his tube feeding; he has not tried any medications for relief. He does admit to increased oral secretions requiring intermittent suctioning at home. Patient denies any other symptoms, including fever, chills, confusion, throat pain, palpitations, chest pain, shortness of breath, wheezing, abdominal pain, diarrhea, constipation, steatorrhea, dysuria or foul-smelling urine. In the ED: Vital signs T 96.7, HR 86, RR 16, BP 157/76 and O2 saturation of 96% on RA. Labs showed leukocytosis without bandemia to 17.4, anemia to 12/36.1, plt 138 and unremarkable chem panel except for mildly elevated BUN to 23. AST 21, ALT 127, troponin <0.01, amylase 59, lipase 115. Abdomen/pelvis CT was done and showed airspace disease in the right middle and right lower lobe suggestive of pneumonia. Chronic moderate-size left pleural effusion and left lower lobe atelectasis/consolidation. Satisfactory position of gastrostomy tube. Patient is admitted to the general medicine floor and the following is the management: 1. Aspiration pneumonia (RLL) with left pleural effusion * Patient hemodynamically stable saturating well on room air, no signs of sepsis * Blood cultures x 2- NGTD * Follow up [facility] - re-ordered as specimin to be obtained, follow the result * Urine for strep and legionella - negative * IV unasyn 3 g Q6h discontinued, patient started on PO augmentin 875 mg PO Q12. Patient planned to complete a total of 10 days abx for aspiration PNA. * Thoracentesis fluid suggests exudative effusion, which may be due to underlying malignancy, TB or chronic pneumonitis from aspirated tube feeds * Awaiting thoracentesis cytology results * Pulmonary consult with Dr. Glass placed, suggest patient should have further outpatient workup including quantiferon gold and collagen vascular workup if cytology negative * Check CBC daily, WBC has been WNL for the past several days, no further need to trend OF note, patient should have follow up CT chest without IV contrast after completion of 10 days antibiotics to assess for resolution of right mid/lower lung changes 2. Nausea and vomiting - improving * DDx: gastroparesis vs rapid PEG tube feedings requring adjustment * Cont tube feeding via PEG tube, patient at goal with glucerna 1.2 * Swallow eval done yesterday and patient did not pass, he will go for modified barium swallow today to further investigate aspiration risk * Tigan PRN for nausea, avoid zofran 3. Diabetes mellitus * Stop oral hypoglycemics * NSS TID AC/HS * FSGs TIDAC/HS * Consideration for endocrinology consult with Dr. Bernard, patient's PCP 4. Influenza vaccination * Patient received flu shot on 07/09/16 FULL CODE DVTP: Lovenox SC Diet: NPO Mild Pain pathways Problem List: 1. Dysphagia 2. Diabetes mellitus 3. GERD 4. Osteoarthritis 5. Vomiting 6. Leukocytosis 7. Pneumonia 8. Vocal cord paralysis 9. Oropharyngeal dysphagia Pain Ratin Pain Location: n/a Pain Goal: Remain pain free Pain Plan: Tylenol as needed for mild pain. Tomorrow's Labs & Rationales: CBC (dropping H&H, new thrombocytopenia). Consulting Request: Consulting Specialty: Pulmonary Disease Consulting Physician: Dr. Glass Reason for Consult: Aspiration pneumonia with parapneumonic effusion
--- NOTE | 2016-07-13 07:26 | PN- Pulmonary ---
Subjective HPI/Critical Care Issues: Patient feels well without shortness of breath. Status post left thoracentesis which shows a lymphocytic exudate Objective Current Medications: Current Medications Sig/Lisa Start time Last Medication Dose Route Stop Time Status Admin Acetaminophen 650 MG Q6P PRN 07/09 171 AC PO Ampicillin Sodium/ 3,000 MG Q6 07/09 1815 AC 07/13 Sulbactam Sodium IV 0621 Sodium Chloride 100 ML Dextrose/Sodium 1,000 ML Q20H 07/09 1700 DC 07/12 Chloride IV 0841 Enoxaparin Sodium 40 MG DAILY 07/10 1000 AC 07/11 ID [id number] Insulin Aspart 0 TIDAC 07/12 1200 DC 07/12 ID 1830 Insulin Detemir 10 UNITS .STK-MED ONE 07/12 1100 DC ID 07/12 1101 Insulin Detemir 10 UNITS DAILY 07/10 1000 AC 07/12 ID 1105 Insulin Human Regular 0 Q6 07/13 0600 AC 07/13 SC 0633 Insulin Human Regular 0 Q6 07/09 1800 DC 07/12 ID 0755 Pantoprazole Sodium 40 MG DAILY 07/11 1819 07/12 IV 0840 Trimethobenzamide HCl 200 MG TID PRN 07/09 171 AC IM Vital Signs & I&O Last 24 Hrs of Vitals and I&O: Vital Signs Date Time Temp Pulse Resp B/P Pulse O2 O2 Flow FiO2 Ox Delivery Rate 07/13 0044 100.1 96 20 110/70 94 Room Air 07/12 1620 99.2 90 20 142/68 95 07/12 1015 98.0 90 20 142/78 95 Room Air 07/12 0826 98.2 76 20 104/63 95 Room Air Intake & Output 07/13 0800 07/13 0000 07/12 1600 Intake Total 855 500 Output Total 300 275 600 Balance 555 -275 -100 Intake, IV 200 500 Intake, Oral 0 Intake, Tube 480 Feeding Intake, Tube 175 Irrigant Number 1 1 Bowel Movements Output, Urine 300 275 600 Exam of the chest left chest shows better breath sounds cardiac exam shows regular S1 and S2 with a loud systolic ejection murmur Impression/Plan Impression/Plan Impression/Plan: 89-year-old gentleman with presumed aspiration pneumonia. Lymphocytic exudative pleural effusion of uncertain etiology. Recommendations: Etiology of chronic lymphocytic pleural effusion. Follow-up cytologies and AFB cultures. Given the chronicity is fluid further outpatient evaluation QuantiFERON Gold and collagen vascular workup if cytologies are negative
[2016-07-13 08:01] LABS: ABSOLUTE BASOPHIL COUNT 0 /CUMM (0.0-0.2); ABSOLUTE EOSINOPHIL COUNT 0.1 /CUMM (0.0-0.7); ABSOLUTE GRANULOCYTE CT 7.2 /CUMM (1.4-6.5); ABSOLUTE LYMPH COUNT 0.3 /CUMM (1.2-3.4); ABSOLUTE MONOCYTE COUNT 1.1 /CUMM (0.10-0.60); BASOPHIL % 0.5 % (0.0-2.0); EOSINOPHIL % 1.3 % (0-5); GRANULOCYTE % 81.3 % (42.2-75.2); HEMATOCRIT 26.8 % (42-52); MEAN CORPUSCULAR HGB 30.9 PG (27.0-31.0); MEAN CORPUSCULAR HGB CONC 33.5 G/DL (33.0-37.0); MEAN PLATELET VOLUME 11.6 FL (7.4-10.4); PLATELET COUNT 125 /CUMM (130-400); RBC DISTRIBUTION WIDTH 13.2 % (11.5-14.5); RED BLOOD CELL CT 2.91 /CUMM (4.70-6.10); WHITE BLOOD CELL COUNT 8.8 /CUMM (4.8-10.8)
[2016-07-13 08:54] VITALS: BP 100/62
[2016-07-13] MEDS ORDERED: AUGMENTIN 875-1 EACH PO (09:33)
--- NOTE | 2016-07-13 10:27 | NUR ---
NURSING NOTE: PT LEFT FLOOR VIA STRETCHER WITH DISTIRBUION FOR MODIFIED BARIUM SWALLOW, PT AWAKE, A/OX3, HOB ELEVATED, TUBE FEEDING PER MD ORDER VIA PEG. TICKET TO RIDE COMPLETE, CHART SENT WITH PT. AWAIT RETURN TO FLOOR/
--- NOTE | 2016-07-13 11:25 | NUR ---
NURISNG NOTE: PT BACK TO FLOOR VIA STRTCHER WITH DISTIRBUTION FROM MBS, PT WAKE, A/OX3, NPO, TF PER MD ORDER, SETTLED INTO BED, BED ALARM IN PLACE AND WORKING, CONT TO MONITOR, NEEDS IN REACH
--- NOTE | 2016-07-13 11:46 | RADIOLOGY REPORT ---
EXAMINATION: XR MODIFIED BARIUM SWALLOW CLINICAL INFORMATION: High aspiration risk. Possible aspiration pneumonia. COMPARISON: None. TECHNIQUE: Fluoroscopic assistance was provided during a modified barium swallow performed in coordination with the speech pathology service. FLUOROSCOPY TIME: 2 minutes, 8 seconds FINDINGS: The modified barium swallow examination was performed in cooperation with the speech pathologist using dynamic fluoroscopic imaging in a lateral projection. The patient's swallowing function was observed during administration of apple sauce puree, honey, nectar, and thin barium contrast. There was spillage of material into the vallecula prior to initiation of swallows. There was persistent pooling of barium coated material within the vallecula and piriform sinuses without significant clearing after patient was instructed to cough. Trace tracheal penetration was observed with thin barium contrast. Please refer to the speech pathology report regarding their assessment and treatment recommendations. IMPRESSION: Delayed initiation of swallowing after spillage of contrast material into the vallecula, and there was persistent pooling of contrast within the vallecula and piriform sinuses. Tracheal penetration occurred with thin barium contrast. Please refer to the speech pathology report regarding their assessment and treatment recommendations.
[2016-07-13 15:40] VITALS: BP 120/58; BP 124/90
[2016-07-14] VITALS: BP 122/60
--- NOTE | 2016-07-14 06:42 | PN- Housestaff ---
Subjective Follow-up For: Aspiration PNA Nausea and vomiting Subjective: Patient seen and examined at bedside this AM. He reported 2 episodes of loose bowel movement this AM associated with bilateral lower abdominal pain. This is assocaited with nausea. He denies feeling feverish but does admit to mild chills. Review of Systems Constitutional: Reports: chills. Denies: fever. EENTM: Denies: blurred vision, visual changes, nasal congestion. Cardiovascular: Denies: chest pain, palpitations. Respiratory: Denies: cough, short of breath. Gastrointestinal: Reports: abdominal pain, diarrhea, nausea. Genitourinary: Denies: hematuria. Musculoskeletal: Denies: back pain, joint pain. Skin: Denies: lesions. Neurological/Psychological: Denies: confusion, headache. Hematologic/Endocrine: Denies: bleeding. Objective Last 24 Hrs of Vital Signs/I&O Vital Signs Date Time Temp Pulse Resp B/P Pulse O2 O2 Flow FiO2 Ox Delivery Rate 07/14 0836 98.4 92 20 132/60 94 Room Air 07/14 0000 100.2 90 20 122/60 92 Room Air 07/13 1915 99.1 07/13 1600 98 Room Air 07/13 1540 100.0 93 20 120/58 98 Intake & Output 07/14 1600 07/14 0800 07/14 0000 Intake Total 655 785 Output Total 175 200 Balance 480 585 Intake, Oral 0 0 Intake, Tube 480 480 Feeding Intake, Tube 175 305 Irrigant Number 3 1 Bowel Movements Output, Urine 175 200 Physical Exam General Appearance: Alert, Oriented X3, Cooperative, No Acute Distress Skin: No Significant Lesion HEENT: Atraumatic, PERRLA, Mucous Membr. moist/pink Neck: Supple, No JVD Lymphatic: Cervical nl Cardiovascular: Regular Rate, Normal S1, Normal S2, Systolic murmur Lungs: Normal Air Movement Abdomen: Normal Bowel Sounds, Soft, Slight tenderness to palpation of bilateral lower quadrants Neurological: Normal Speech, Normal Tone Extremities: No Clubbing, No Cyanosis, No Edema Current Medications: Current Medications Sig/Lisa Start time Last Medication Dose Route Stop Time Status Admin Acetaminophen 650 MG Q6P PRN 07/09 1715 AC PO Amoxicillin/ 875 MG Q12 07/13 1000 AC 07/14 Clavulanate Potassium PO 1033 Enoxaparin Sodium 40 MG DAILY 07/10 1000 AC 07/14 SC 1033 Insulin Detemir 10 UNITS DAILY 07/10 1000 AC 07/14 SC 1032 Insulin Human Regular 0 Q6 07/13 0600 AC 07/14 SC 1244 Melatonin 5 MG ONCE ONE 07/13 2044 DC 07/13 PO 07/13 Pantoprazole Sodium 40 MG DAILY 07/11 1818 AC 07/14 IV 1033 Trimethobenzamide HCl 200 MG TID PRN 07/09 1715 AC 07/14 IM 0758 Last 24 Hrs of Lab/Bradley Results Last 24 Hrs of Labs/Mics: Laboratory Tests 07/14/16 0720: CBC w Diff NO MAN DIFF REQ, RBC 2.82 L, MCV 92.7, MCH 31.1 H, RDW 13.2, MPV 11.4 H, Gran % 79.5 H, Lymphocytes % 7.1 L, Monocytes % 10.8 H, Eosinophils % 2.2, Basophils % 0.4, Absolute Granulocytes 7.7 H, Absolute Lymphocytes 0.7 L, Absolute Monocytes 1.0 H, Absolute Eosinophils 0.2, Absolute Basophils 0, PUBS MCHC 33.6 Microbiology 07/14 0800 STOOL: Clostridium difficile Toxin A & B - COMP Orders Radiology Findings: EXAMINATION: XR CHEST CLINICAL INFORMATION: Aspiration pneumonia. COMPARISON: 07/12/2016. TECHNIQUE: 2 views of the chest were obtained. FINDINGS: The cardiomediastinal silhouette is within normal limits. There is a small to moderate-sized left-sided pleural effusion with associated atelectasis and/or infiltrate. Both appear to have increased since the previous exam. Patchy opacity in the right mid to lower lung field is again noted worrisome for developing infiltrate and pneumonia. There is no evidence of pneumothorax or pulmonary edema. Included osseous structures demonstrate moderate degenerative changes in the shoulders and spine. IMPRESSION: Increasing left pleural effusion and atelectasis versus infiltrate. Evolving right mid to lower lung field infiltrate suggesting pneumonia. Assessment/Plan Assessment: Mr. 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 This nausea and vomiting is intermittent and relieved with discontinuation of his tube feeding; he has not tried any medications for relief. He does admit to increased oral secretions requiring intermittent suctioning at home. Patient denies any other symptoms, including fever, chills, confusion, throat pain, palpitations, chest pain, shortness of breath, wheezing, abdominal pain, diarrhea, constipation, steatorrhea, dysuria or foul-smelling urine. In the ED: Vital signs T 96.7, HR 86, RR 16, BP 157/76 and O2 saturation of 96% on RA. Labs showed leukocytosis without bandemia to 17.4, anemia to 12/36.1, plt 138 and unremarkable chem panel except for mildly elevated BUN to 23. AST 21, ALT 127, troponin <0.01, amylase 59, lipase 115. Abdomen/pelvis CT was done and showed airspace disease in the right middle and right lower lobe suggestive of pneumonia. Chronic moderate-size left pleural effusion and left lower lobe atelectasis/consolidation. Satisfactory position of gastrostomy tube. Patient is admitted to the general medicine floor and the following is the management: 1. Aspiration pneumonia (RLL) with left pleural effusion * Patient hemodynamically stable saturating well on room air, no signs of sepsis * Blood cultures x 2- NGTD * Not sufficient sputum for LRC * Urine for strep and legionella - negative * IV unasyn 3 g Q6h discontinued, patient started on PO augmentin 875 mg PO Q12. Patient planned to complete a total of 10 days abx for aspiration PNA. * Thoracentesis fluid suggests exudative effusion, which may be due to underlying malignancy, TB or chronic pneumonitis from aspirated tube feeds. AFB pending. * Thoracentesis cytology NOT suggestive of malignancy. * Pulmonary consult with Dr. Glass placed, suggest patient should have further outpatient workup including quantiferon gold and collagen vascular workup if cytology negative * Check CBC daily, WBC has been WNL for the past several days, no further need to trend * Repeat CXR today showed slight worsening of left pleural effusion with atelectasis vs infiltrate OF note, patient should have follow up CT chest without IV contrast after completion of 10 days antibiotics to assess for resolution of right mid/lower lung changes 2. Nausea and vomiting - worsening today * DDx: gastroparesis vs rapid PEG tube feedings requring adjustment * Cont tube feeding via PEG tube, patient at goal with glucerna 1.2 * Swallow eval done yesterday and patient did not pass, he had leakage of contrast material during barium swallow, PATIENT CANNOT TAKE ANY FOOD BY MOUTH * Tigan PRN for nausea, avoid zofran * LFTs added to AM labs, will f/u results 3. Diabetes mellitus * Stop oral hypoglycemics * NSS TID AC/HS * FSGs TIDAC/HS * Consideration for endocrinology consult with Dr. Bernard, patient's PCP 4. Influenza vaccination * Patient received flu shot on 07/09/16 5. Diarrhea and nausea * Patient had 2 episodes of diarrhea throughtout the last 24 hours * This was associated with a low grade temp to 100.2 * Stool sent for Cdiff, NEGATIVE for Cdiff toxin FULL CODE DVTP: Lovenox SC Diet: NPO Mild Pain pathways Problem List: 1. Diabetes mellitus 2. Dysphagia 3. GERD 4. Osteoarthritis 5. Vocal cord paralysis 6. Oropharyngeal dysphagia 7. Pneumonia 8. Vomiting Pain Ratin Pain Location: Bilateral lower quadrants. Pain Goal: Pain 4 or less Pain Plan: Tigan for nausea Tomorrow's Labs & Rationales: CBC (monitor WBC in setting of aspiration PNA and worsening CXR), BEP (monitor electrolytes in setting of tube feeds) Consulting Request: Consulting Specialty: Pulmonary Disease Consulting Physician: Dr. Glass Reason for Consult: Aspiration pneumonia with parapneumonic effusion
--- NOTE | 2016-07-14 08:01 | NUR ---
NURSING NOTE: PT C/O NAUSEA, HAD LARGE LOOSE BROWN STOOL; GUIAC NEGATIVE. COTTON INSPECTOR MARIZOL CALLED AND TO ASSESS PT. STOOL SENT FOR C DIFF.
[2016-07-14 08:32] LABS: ABSOLUTE BASOPHIL COUNT 0 /CUMM (0.0-0.2); ABSOLUTE EOSINOPHIL COUNT 0.2 /CUMM (0.0-0.7); ABSOLUTE GRANULOCYTE CT 7.7 /CUMM (1.4-6.5); ABSOLUTE LYMPH COUNT 0.7 /CUMM (1.2-3.4); BASOPHIL % 0.4 % (0.0-2.0); EOSINOPHIL % 2.2 % (0-5); GRANULOCYTE % 79.5 % (42.2-75.2); HEMATOCRIT 26.1 % (42-52); MEAN CORPUSCULAR HGB 31.1 PG (27.0-31.0); MEAN CORPUSCULAR HGB CONC 33.6 G/DL (33.0-37.0); MEAN CORPUSCULAR VOLUME 92.7 FL (80.0-94.0); MEAN PLATELET VOLUME 11.4 FL (7.4-10.4); PLATELET COUNT 130 /CUMM (130-400); RBC DISTRIBUTION WIDTH 13.2 % (11.5-14.5); RED BLOOD CELL CT 2.82 /CUMM (4.70-6.10); WHITE BLOOD CELL COUNT 9.7 /CUMM (4.8-10.8)
[2016-07-14 08:36] VITALS: BP 132/60
--- NOTE | 2016-07-14 09:00 | NUR ---
NURSING NOTE: PT LEFT FLOOR VIA STRETCHER WITH DISTRIBUTION FOR CRX PT AWAKE, A/OX3, ROOM AIR, TF PER MD ORDER. DENIES NAUSEA AT THIS TIME. TICKET TO RIDE COMPLETE, AWAIT RETURN TO FLOOR
--- NOTE | 2016-07-14 09:46 | NUR ---
NURSING NOTE: PT BACK TO FLOOR VIA STRETCHER WITH DISTRBUION FROM CXR, PT AWAKE, A/OX3, ROOM AIR, BED ALARM IN USE, DENIES PAIN OR NAUSEA AT THIS TIME, NON PROD COUGH, CONT TO MONITOR.
--- NOTE | 2016-07-14 09:48 | RADIOLOGY REPORT ---
EXAMINATION: XR CHEST CLINICAL INFORMATION: Aspiration pneumonia. COMPARISON: 07/12/2016. TECHNIQUE: 2 views of the chest were obtained. FINDINGS: The cardiomediastinal silhouette is within normal limits. There is a small to moderate-sized left-sided pleural effusion with associated atelectasis and/or infiltrate. Both appear to have increased since the previous exam. Patchy opacity in the right mid to lower lung field is again noted worrisome for developing infiltrate and pneumonia. There is no evidence of pneumothorax or pulmonary edema. Included osseous structures demonstrate moderate degenerative changes in the shoulders and spine. IMPRESSION: Increasing left pleural effusion and atelectasis versus infiltrate. Evolving right mid to lower lung field infiltrate suggesting pneumonia.
--- NOTE | 2016-07-14 10:02 | PN- Pulmonary ---
Subjective HPI/Critical Care Issues: Patient feels well without respiratory complaints Objective Current Medications: Current Medications Sig/Lisa Start time Last Medication Dose Route Stop Time Status Admin Acetaminophen 650 MG Q6P PRN 07/09 1715 AC PO Amoxicillin/ 875 MG Q12 07/13 1000 AC 07/13 Clavulanate Potassium PO 2119 Enoxaparin Sodium 40 MG DAILY 07/10 1000 AC 07/13 SC 0950 Insulin Detemir 10 UNITS DAILY 07/10 1000 AC 07/13 SC 0950 Insulin Human Regular 0 Q6 07/13 0600 AC 07/14 SC 0554 Melatonin 5 MG ONCE ONE 07/13 2044 DC 07/13 PO 07/13 Pantoprazole Sodium 40 MG DAILY 07/11 1819 AC 07/13 IV 0950 Trimethobenzamide HCl 200 MG TID PRN 07/09 1715 AC 07/14 IM 0758 Patient feels well without respiratory complaints Vital Signs & I&O Last 24 Hrs of Vitals and I&O: Vital Signs Date Time Temp Pulse Resp B/P Pulse O2 O2 Flow FiO2 Ox Delivery Rate 07/14 0836 98.4 92 20 132/60 94 Room Air 07/14 0000 100.2 90 20 122/60 92 Room Air 07/13 1915 99.1 07/13 1600 98 Room Air 07/13 1540 100.0 93 20 120/58 98 Intake & Output 07/14 1600 07/14 0800 07/14 0000 Intake Total 655 785 Output Total 175 200 Balance 480 585 Intake, Oral 0 0 Intake, Tube 480 480 Feeding Intake, Tube 175 305 Irrigant Number 3 1 Bowel Movements Output, Urine 175 200 He remains afebrile oxygen saturation on room air 94% exam of his chest shows clear lung irwin cardiac exam shows regular S1 and S2 Impression/Plan Impression/Plan Impression/Plan: 89-year-old gentleman with presumed aspiration pneumonia. Lymphocytic exudative pleural effusion of uncertain etiology. Pleural fluid cytology is negative Recommendations: Etiology of chronic lymphocytic pleural effusion is uncertain Follow-up AFB cultures. Given the chronicity is fluid further outpatient evaluation QuantiFERON Gold and collagen vascular workup if cytologies are negative
--- NOTE | 2016-07-14 13:35 | PN- Att Addend ---
Attending Addendum Attending Brief Note Patient seen and examined. Resting comfortably in and not in acute distress. Nursing staff reports mild increasing cough today. Patient however denies this. He does complain of abdominal discomfort and diarrhea. He has had several bowel movements this morning. Is continues to have low-grade fever. On examination he has diminished breath sounds bilaterally but no added sounds. Abdomen is soft nontender with normal bowel sounds. PEG tube is in place. He has no peripheral edema. Chest x-ray done today on account of these low-grade fever and reported cough reveals increasing left pleural effusion and atelectasis versus infiltrate and evolving right mid to lower lung field infiltrate suggesting pneumonia. Patient is currently on day 6 of antibiotic therapy for pneumonia likely secondary to chronic aspiration. He failed barium swallow yesterday suggesting that he may have been having recurrent microaspiration at home. Cytology results is negative for malignancy. C. difficile testing this morning is negative. Recommendations: -Hold discharge today. Continue oral antibiotics. -We'll continue to monitor patient in the hospital. If he does not have a significant temperature spike he may be discharged home tomorrow. -He will need to follow-up next week with the pulmonary service for repeat chest imaging to determine progression of his pleural effusion. He is currently hemodynamically stable and not requiring oxygen supplementation.
[2016-07-14 16:57] VITALS: BP 130/60
--- NOTE | 2016-07-14 22:25 | NUR ---
NO ISSUES WITH PATIENT DURING SHIFT G TUBE RUNNING FINE, FLUSH AND MED PASS TOLERATED, SITE DSG CDI OFFERING NO C/O PAIN
[2016-07-15 00:43] VITALS: BP 126/74
--- NOTE | 2016-07-15 06:51 | PN- Housestaff ---
See Addendum Subjective Follow-up For: Aspiration PNA Nausea and vomiting Subjective: Mr. Greenwood seen and examined at bedside this AM. He was resting comfortably in bed. He reports he has had no further episodes of diarrhea since yesterday and he denies fever, chills, chest pain shortness of breath. He continues to admit to mild nausea with associated lower abdominal cramping (tigan reported to have helped his nausea). Review of Systems Constitutional: Denies: chills, fever, malaise. EENTM: Denies: blurred vision, visual changes, hearing changes, nasal congestion. Cardiovascular: Denies: chest pain, palpitations. Respiratory: Denies: cough, short of breath. Gastrointestinal: Reports: abdominal pain, nausea. Denies: constipation, diarrhea, vomiting. Genitourinary: Reports: no symptoms. Musculoskeletal: Denies: back pain. Skin: Denies: rash. Neurological/Psychological: Denies: confusion, headache. Hematologic/Endocrine: Denies: bruising, bleeding. Immunologic/Allergic: Denies: splenectomy. Objective Last 24 Hrs of Vital Signs/I&O Vital Signs Date Time Temp Pulse Resp B/P Pulse O2 O2 Flow FiO2 Ox Delivery Rate 07/15 0757 95 Room Air 07/15 0749 98.4 83 20 122/60 94 Room Air 07/15 0043 98.6 91 18 126/74 94 Room Air 07/15 0000 Room Air 07/14 1657 98.6 86 20 130/60 93 07/14 1600 93 Room Air 07/14 0836 98.4 92 20 132/60 94 Room Air Intake & Output 07/15 1600 07/15 0800 07/15 0000 Intake Total 450 760 Output Total 400 250 Balance 50 510 Intake, IV 0 Intake, Oral 450 0 Intake, Tube 480 Feeding Intake, Tube 280 Irrigant Number 1 2 Bowel Movements Output, Urine 400 250 Physical Exam General Appearance: Alert, Oriented X3, Cooperative, No Acute Distress Skin: No Significant Lesion, Skin arround PEG tube clean and without signs of erythema. HEENT: Atraumatic, PERRLA, EOMI, Mucous Membr. moist/pink Neck: Supple, No thryomegaly Lymphatic: Cervical nl Cardiovascular: Normal S1, Normal S2, Systolic murmur appreciated. Lungs: Normal Air Movement Abdomen: Normal Bowel Sounds, Soft, No Hepatospenomegaly, No Masses, Minimal tenderness to bilateral lower quadrants. Neurological: Normal Speech, Normal Tone Extremities: No Clubbing, No Cyanosis, No Edema Vascular: Pulses Symmetrical Current Medications: Current Medications Sig/Lisa Start time Last Medication Dose Route Stop Time Status Admin Acetaminophen 650 MG Q6P PRN 07/09 1715 AC PO Amoxicillin/ 875 MG Q12 07/13 1000 AC 07/14 Clavulanate Potassium PO 2130 Enoxaparin Sodium 40 MG DAILY 07/10 1000 AC 07/14 SC 1033 Insulin Detemir 10 UNITS .STK-MED ONE 07/14 1024 DC WA 07/14 1025 Insulin Detemir 10 UNITS DAILY 07/10 1000 AC 07/14 SC 1032 Insulin Human Regular 0 Q6 07/13 0600 AC 07/15 SC 0629 Melatonin 5 MG ONCE ONE 07/14 2200 DC 07/14 PO 07/14 2201 2130 Pantoprazole Sodium 40 MG DAILY 07/11 1819 LA 07/14 IV 1033 Patient Medication 1 ED .STK-MED ONE 07/14 1410 DC Teaching ED 07/14 1411 Trimethobenzamide HCl 200 MG TID PRN 07/09 1715 07/15 IM 0742 Last 24 Hrs of Lab/Bradley Results Last 24 Hrs of Labs/Mics: Laboratory Tests 07/15/16 0640: Sodium Pending, Potassium Pending, Chloride Pending, Carbon Dioxide Pending, Anion Gap Pending, BUN Pending, Creatinine Pending, BUN/Creatinine Ratio Pending , Total Bilirubin Pending, Direct Bilirubin Pending, AST Pending, ALT Pending, Alkaline Phosphatase Pending, Total Protein Pending, Albumin Pending, CBC w Diff Pending, WBC Pending, RBC Pending, Hgb Pending, Hct Pending, MCV Pending, MCH Pending, RDW Pending, Plt Count Pending, MPV Pending, PUBS MCHC Pending Orders Radiology Findings: EXAMINATION: XR CHEST CLINICAL INFORMATION: Aspiration pneumonia. COMPARISON: 07/12/2016. TECHNIQUE: 2 views of the chest were obtained. FINDINGS: The cardiomediastinal silhouette is within normal limits. There is a small to moderate-sized left-sided pleural effusion with associated atelectasis and/or infiltrate. Both appear to have increased since the previous exam. Patchy opacity in the right mid to lower lung field is again noted worrisome for developing infiltrate and pneumonia. There is no evidence of pneumothorax or pulmonary edema. Included osseous structures demonstrate moderate degenerative changes in the shoulders and spine. IMPRESSION: Increasing left pleural effusion and atelectasis versus infiltrate. Evolving right mid to lower lung field infiltrate suggesting pneumonia. Assessment/Plan Assessment: Mr. 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 This nausea and vomiting was described as intermittent and relieved with discontinuation of his tube feeding; he did not try any medications for relief. He did admit to increased oral secretions requiring intermittent suctioning at home. Patient denied any other symptoms, including fever, chills, confusion, throat pain, palpitations, chest pain, shortness of breath, wheezing, abdominal pain, diarrhea, constipation, steatorrhea, dysuria or foul-smelling urine. In the ED: Vital signs T 96.7, HR 86, RR 16, BP 157/76 and O2 saturation of 96% on RA. Labs showed leukocytosis without bandemia to 17.4, anemia to 12/36.1, plt 138 and unremarkable chem panel except for mildly elevated BUN to 23. AST 21, ALT 127, troponin <0.01, amylase 59, lipase 115. Abdomen/pelvis CT was done and showed airspace disease in the right middle and right lower lobe suggestive of pneumonia. Chronic moderate-size left pleural effusion and left lower lobe atelectasis/consolidation. Satisfactory position of gastrostomy tube. Patient is admitted to the general medicine floor and the following is the management: 1. Aspiration pneumonia (RLL) with left pleural effusion * Patient hemodynamically stable saturating well on room air, no signs of sepsis * Blood cultures x 2, final results show no growht * Not sufficient sputum for LRC * Urine for strep and legionella - negative * IV unasyn 3 g Q6h discontinued, patient started on PO augmentin 875 mg PO Q12 on 07/13/16 (day #6 of antibiotic therapy). Patient planned to complete a total of 10 days abx for aspiration PNA. * Thoracentesis fluid suggests exudative effusion, with initial differential including underlying malignancy, TB or chronic pneumonitis from aspirated tube feeds. AFB pending. * Thoracentesis cytology NOT suggestive of malignancy. * Pulmonary consult with Dr. Glass placed/appreciated, suggest patient should have further outpatient workup including quantiferon gold and collagen vascular workup if cytology negative * No further need to trend CBC as patient has not spiked a fever or had any leukocytosis since 07/10/16 * Repeat CXR on 07/14/16 showed slight worsening of left pleural effusion with atelectasis vs infiltrate Of note, patient should have follow up CT chest without IV contrast after completion of 10 days antibiotics to assess for resolution of right mid/lower lung changes 2. Nausea and vomiting * DDx: gastroparesis vs rapid PEG tube feedings requring adjustment * Cont tube feeding via PEG tube, patient at goal of 60 cc/h for 24h/day with glucerna 1.2 * PATIENT CANNOT TAKE ANY FOOD BY MOUTH as his modified barium swallow was abnormal with leakage of contrast into his trachea * Tigan PRN for nausea, avoid zofran (patient will be discharged with tigan prescription) * LFTs added to AM labs, will f/u results 3. Diabetes mellitus * Stop oral hypoglycemics * NSS TID AC/HS * FSGs TIDAC/HS * Consideration for endocrinology consult with Dr. Bernard, patient's PCP 4. Influenza vaccination * Patient received flu shot on 07/09/16 5. Diarrhea and nausea * Patient had 2 episodes of diarrhea on 07/14/16 * This was associated with a low grade temp to 100.2 * Stool sent for Cdiff, NEGATIVE for Cdiff toxin CONSIDERATION FOR DISCHARGE TODAY FULL CODE DVTP: Lovenox SC Diet: NPO Mild Pain pathways Problem List: 1. Diabetes mellitus 2. Dysphagia 3. GERD 4. Osteoarthritis 5. Vomiting 6. Pneumonia 7. Vocal cord paralysis 8. Oropharyngeal dysphagia Pain Ratin Pain Location: Bilateral lower abdominal quadrants. Pain Goal: Pain 4 or less Pain Plan: Mild pain pathway, tigan for nausea. Tomorrow's Labs & Rationales: None. Consulting Request: Consulting Specialty: Pulmonary Disease Consulting Physician: Dr. Glass Reason for Consult: Aspiration pneumonia with parapneumonic effusion
[2016-07-15] MEDS ORDERED: AUGMENTIN 875-1 EACH PO (06:59)
[2016-07-15] MEDS ORDERED: TIGAN300 MG PO (06:59)
[2016-07-15 07:49] VITALS: BP 122/60
--- NOTE | 2016-07-15 07:51 | NUR ---
nursing note: pt c/o nausea;no vomiting noted. tigan given via [employer] internet consultant aware. new tube feeding hung at this time, peg tube dsg changed; no redness or drainage noted. residual 0 at this time. cont to monitor.
[2016-07-15 09:08] LABS: ABSOLUTE BASOPHIL COUNT 0 /CUMM (0.0-0.2); ABSOLUTE EOSINOPHIL COUNT 0.3 /CUMM (0.0-0.7); ABSOLUTE GRANULOCYTE CT 7.6 /CUMM (1.4-6.5); ABSOLUTE LYMPH COUNT 0.7 /CUMM (1.2-3.4); ABSOLUTE MONOCYTE COUNT 0.8 /CUMM (0.10-0.60); BASOPHIL % 0.3 % (0.0-2.0); EOSINOPHIL % 3.6 % (0-5); GRANULOCYTE % 80.5 % (42.2-75.2); HEMATOCRIT 25.6 % (42-52); MEAN CORPUSCULAR HGB 30.6 PG (27.0-31.0); MEAN CORPUSCULAR HGB CONC 33.1 G/DL (33.0-37.0); MEAN CORPUSCULAR VOLUME 92.3 FL (80.0-94.0); MEAN PLATELET VOLUME 11.7 FL (7.4-10.4); PLATELET COUNT 132 /CUMM (130-400); RBC DISTRIBUTION WIDTH 13.3 % (11.5-14.5); RED BLOOD CELL CT 2.78 /CUMM (4.70-6.10); WHITE BLOOD CELL COUNT 9.4 /CUMM (4.8-10.8)
--- NOTE | 2016-07-15 09:57 | NUR ---
THUY NOTE: ROUTINE EKG DONE PER MD ORDER. MARIZOL [employer] INSPECT[employer] 133 CALLED AND MADE AWARE AND TO COME READ EKG, PT DENIES CARDIAC DISTRESS OR CHEST PAIN
== END 2016-07-15 12:18 | disposition home health service (06) | DRG 178 ==
LOC: ENRESERVTM → ENRESERVDT → ERH 10:56 → 2NB 15:48 → ENPENDDIS 15:48 → ERHI 15:48 → EDBEDREQ 17:50 → ERHI 19:22 → 2NB 19:22
PROVIDERS: Internal Medicine; Physician Assistant; Student in an Organized Health Care Education/Training Program; ADMIT Internal Medicine
PROC: 0W9B3ZZ Drainage of Left Pleural Cavity, Percutaneous Approach (ICD-10-PCS; principal; 2016-07-12)
DX: J69.0 Pneumonitis due to inhalation of food and vomit (principal); J90 Pleural effusion, not elsewhere classified; J38.01 Paralysis of vocal cords and larynx, unilateral; Z93.1 Gastrostomy status; R13.12 Dysphagia, oropharyngeal phase; E11.9 Type 2 diabetes mellitus without complications; Z85.46 Personal history of malignant neoplasm of prostate; Z79.4 Long term (current) use of insulin
CPT/HCPCS: 2NBP; 87075; 36415; 74177; 74230; 82436; 87040; 87070; 87449; 87450; 87804; 87804-59; 88305; 90662; 93005; 93010; 96361; 96374; 97110-GO; 97112-GO; 97116-GO; 97161-GP; 97530-GO; J1644; J1650; J1815; J2405; J3250; J7040; J7042

== ENCOUNTER 2016-07-15 19:52 | Observation (INO) | payer OTHER, MEDICARE ==
[~2016-07-15] VITALS: Ht 172.7 cm; Wt 65.8 kg
[~2016-07-15 19:52] MED LIST changes: +AUGMENTIN 875-1 EACH PO; +LANTUS SOL100 UNIT/1 SC; +METFORMIN HCL500 M3 PEG; +TIGAN300 MG PO
--- NOTE | 2016-07-15 20:00 | NUR ---
Informed waiting has been performed.
--- NOTE | 2016-07-15 20:00 | NUR ---
TRIAGE: PT TO ER WITH NEPHEW C/C DIFFICULTY BREATHING. PT WAS D/C'D FROM [facility] EARLIER TODAY AFTER BEING TREATED FOR PNEUMONIA. NEPHEW STATES HE'S NOT BREATHING WELL ENOUGH TO BE HOME. PT DENIES ANY PAIN. PT CONTINUES TO HAVE COUGHING. NEPHEW STATES HIS R VOCAL CORD IS PARALYZED SO HE HAS HX FREQUENT ASPIRATIONS, HAS G TUBE.
--- NOTE | 2016-07-15 20:12 | ED DYSPNEA/ASTHMA COMPLAINT ---
History of Present Illness General Chief Complaint: General Adult Stated Complaint: PT IS HAVING PROBLEM WITH HIS BREATHING Source: patient, family, old records Exam Limitations: no limitations Vital Signs & Intake/Output Vital Signs & Intake/Output Vital Signs Date Time Temp Pulse Resp B/P Pulse O2 O2 Flow FiO2 Ox Delivery Rate 07/15 1957 97.5 110 20 136/85 95 Room Air Allergies Coded Allergies: NO KNOWN ALLERGIES (07/15/16) Reconcile Medications Amoxicillin/Potassium Clav (Augmentin 875-125 Tablet) 875 MG-125 MG TABLET 1 TAB PO BID Aspiration pneumonia Insulin Glargine,Hum.rec.anlog (Lantus Solostar) 100 UNIT/ML (3 ML) INSULN.PEN 10 UNIT SC DAILY DIABETES (Reported) Metformin HCl 500 MG TABLET 1 TAB PO BID DIABETES (Reported) Pioglitazone Hydrochloride 30 MG TAB 1 TAB PO DAILY DIABETES (Reported) Trimethobenzamide HCl (Tigan) 300 MG CAPSULE 1 TAB PO TIDPRN PRN NAUSEA Triage Note: TRIAGE: PT TO ER WITH NEPHEW C/C DIFFICULTY BREATHING. PT WAS D/C'D FROM [facility] TODAY AFTER BEING TREATED FOR PNEUMONIA. NEPHEW STATES HE'S NOT BREATHING WELL ENOUGH TO BE HOME. PT DENIES ANY PAIN. PT CONTINUES TO HAVE COUGHING. NEPHEW STATES HIS R VOCAL CORD IS PARALYZED SO HE HAS HX FREQUENT ASPIRATIONS, HAS G TUBE. Triage Nurses Notes Reviewed? yes Onset: Abrupt Duration: day(s): (1), constant, getting worse Timing: recent history Severity: moderate Activities at Onset: activity Modifying Factors: Improves With: rest. Worsens With: movement, other. 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 After getting home where the patient lives at home alone he began feeling short of breath with climbing stairs and was having difficulty ambulating secondary to his symptoms. The patient is currently on a course of antibiotics. The patient's son states that it is not safe at home given the patient's symptoms. He is also had a large left plural effusion which was aspirated here 3 days ago. He denies fever chills chest pain. His nausea vomiting and diarrhea has improved (SOCORRO HOLLAND) Past History Travel History Traveled to [place] past 21 day No Medical History Any Pertinent Medical History? 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 No (SOCORRO HOLLAND) Review of Systems Review of Systems Constitutional: Reports: see HPI. All Other Systems: Reviewed and Negative Comments Review of systems: See HPI, All other systems negative. Constitutional, no chills no fever, no malaise HEENT: No visual changes no sore throat no congestion Cardiovascular: No chest pain , no palpitation Skin, no rashes, no change in skin Respiratory: No dyspnea no cough no sputum GI: No nausea no vomiting, no diarrhea : No dysuria Muscle skeletal: No joint pain, no back pain, no neck pain, Neurologic: No numbness no headache Psych: No stress Heme/endocrine: No bruising no bleeding Immunology: No lymphadenopathy (SOCORRO HOLLAND) Physical Exam Physical Exam General Appearance: well developed/nourished, alert, awake Respiratory: crackles b/l, left greater than right Comments: Well-developed well-nourished person in no acute distress HEENT: Normal EENT exam; PERRL, EOMI, HEAD is atraumatic. moist mucous membranes. Neck: Supple, normal range of motion Back: Nontender, no CVA tenderness. Full range of motion Cardiovascular: Regular rate and rhythms no murmurs rubs or gallops, normal JVP Respiratory: Chest nontender.There were no bony deformities, no asymmetry. No respiratory distress. Patient speaking in full complete sentences. Crackles bilaterally left greater than right lung sounds diminished Abdomen: Soft, nontender nondistended, no appreciable organomegaly. Normal bowel sounds. No rebound/guarding, Extremity: No edema, full range of motion of extremities, Neuro: Alert oriented x3, motor sensory normal. There were no obvious focal neurologic abnormalities. Skin: No appreciable rash on exposed skin, skin is warm and dry. Psych: Mood and affect is normal, memory and judgment is normal. Core Measures ACS in differential dx? Yes Severe Sepsis Present: No Septic Shock Present: No (MINOR EARLY,SOCORRO) Progress Differential Diagnosis: asthma, AMI, bronchitis, costochondritis, musculoskeletal pain, pericarditis, pulmonary embolism, pneumonia, pneumothorax, unstable angina, pleural effusion Plan of Care: Orders Procedure Date/time Status Regular Diet 07/16 B Active OXYGEN SETUP (GEN) 07/15 2141 Active Saline Lock 07/[address] in observation 07/15 2141 Active Vital Signs 07/15 2141 Active Activity/Ambulation 07/15 2141 Active Code Status 07/15 2141 Active COMPREHENSIVE METABOLIC PANEL 07/15 2018 Complete CBC WITHOUT DIFFERENTIAL 07/15 2018 Complete EKG 07/15 2002 Active Laboratory Tests 07/15/16 2100: Anion Gap 12, Estimated GFR > 60, BUN/Creatinine Ratio 26.3 H, Glucose 168 H, Calcium 8.5, Total Bilirubin 0.6, AST 28, ALT 25, Alkaline Phosphatase 108, Total Protein 7.3, Albumin 3.2 L, Globulin 4.1, Albumin/Globulin Ratio 0.8 L, CBC w Diff NO MAN DIFF REQ, RBC 3.20 L, MCV 92.6, MCH 30.7, RDW 13.8, MPV 11.1 H, Gran % 86.9 H, Lymphocytes % 4.0 L, Monocytes % 7.9, Eosinophils % 1.1, Basophils % 0.1, Absolute Granulocytes 10.0 H, Absolute Lymphocytes 0.5 L, Absolute Monocytes 0.9 H, Absolute Eosinophils 0.1, Absolute Basophils 0, PUBS MCHC 33.2 Old records including the patient's previous chest x-ray from yesterday were reviewed Breathing improved after DuoNeb. Discussed with patient and his family plan of care patient be observation for rehabilitation placement tomorrow PATIENT: MILLY LLOYD PRESENT AGE: 89 PATIENT ACCOUNT NO: [id number] : [birth year] LOCATION: 2NB ORDERING PHYSICIAN: AYAAN BERRIOS MD SERVICE DATE: 07/14/16- EXAM TYPE: RAD - XRY-CHEST XRAY, PA AND LATERAL EXAMINATION: XR CHEST CLINICAL INFORMATION: Aspiration pneumonia. COMPARISON: 07/12/2016. TECHNIQUE: 2 views of the chest were obtained. FINDINGS: The cardiomediastinal silhouette is within normal limits. There is a small to moderate-sized left-sided pleural effusion with associated atelectasis and/or infiltrate. Both appear to have increased since the previous exam. Patchy opacity in the right mid to lower lung field is again noted worrisome for developing infiltrate and pneumonia. There is no evidence of pneumothorax or pulmonary edema. Included osseous structures demonstrate moderate degenerative changes in the shoulders and spine. IMPRESSION: Increasing left pleural effusion and atelectasis versus infiltrate. Evolving right mid to lower lung field infiltrate suggesting pneumonia. (SOCORRO HOLLAND) Initial ED EKG: normal sinus at 90, no acute ST segment changes normal axis Prior EKG: unchanged (06/2016) (SOCORRO HOLLAND) Departure Departure Time of Disposition: 2137 Disposition: STILL A PATIENT Condition: Stable Clinical Impression Primary Impression: Pleural effusion Referrals: ALISHA VALLEJO,ALVINA Sotelo (PCP/Family) Departure Forms: Customer Survey General Discharge Information Observation Note Spoke With: SALOME POWERS MD Place Patient In: Non-ED OBS Care Area Rationale for Observation: My rational for observation is as follows [patient will require or short-term rehabilitation placement given history of shortness of breath was at home alone he is a fall risk premature discharge her be medically harmful patient is unable to care for self secondary to symptoms (SOCORRO HOLLAND) PA/BUTTER FAT TESTER Co-Sign Statement Statement: ED Attending supervision documentation- x I saw and evaluated the patient. I have also reviewed all the pertinent lab results and diagnostic results. I agree with the findings and the plan of care as documented in the PA's/BUTTER FAT TESTER's documentation. [] I have reviewed the ED Record and agree with the PA's/BUTTER FAT TESTER's documentation. [] Additions or exceptions (if any) to the PAs/BUTTER FAT TESTER's note and plan are summarized below: [] (IVANA VALLEJO,TWAN) Critical Care Note Critical Care Note Critical Care Time: non-applicable (SOCORRO HOLLAND)
--- NOTE | 2016-07-15 20:42 | NUR ---
RESP AT BEDSIDE GIVING BREATHING TREATMENT
--- NOTE | 2016-07-15 21:02 | NUR ---
BLOOD DRAWN AND SENT TO LAB SST, LAV, BLUE
[2016-07-15 21:08] LABS: ABSOLUTE BASOPHIL COUNT 0 /CUMM (0.0-0.2); ABSOLUTE EOSINOPHIL COUNT 0.1 /CUMM (0.0-0.7); ABSOLUTE LYMPH COUNT 0.5 /CUMM (1.2-3.4); ABSOLUTE MONOCYTE COUNT 0.9 /CUMM (0.10-0.60); BASOPHIL % 0.1 % (0.0-2.0); EOSINOPHIL % 1.1 % (0-5); HEMATOCRIT 29.6 % (42-52); MEAN CORPUSCULAR HGB 30.7 PG (27.0-31.0); MEAN CORPUSCULAR HGB CONC 33.2 G/DL (33.0-37.0); MEAN CORPUSCULAR VOLUME 92.6 FL (80.0-94.0); PLATELET COUNT 167 /CUMM (130-400); RBC DISTRIBUTION WIDTH 13.8 % (11.5-14.5); WHITE BLOOD CELL COUNT 11.5 /CUMM (4.8-10.8)
[2016-07-15 21:25] LABS: GRANULOCYTE % 86.9 % (42.2-75.2); MEAN PLATELET VOLUME 11.1 FL (7.4-10.4)
--- NOTE | 2016-07-15 21:28 | NUR ---
PT REPORTS FEELING BETTER AFTER BREATHING TREATMENT
--- NOTE | 2016-07-15 22:20 | NUR ---
[facility] ASSIGNMENT [phone]
--- NOTE | 2016-07-15 22:20 | History & Physical ---
IGOR ABBASI MD 07/15/16 2220: General Information and HPI MD Statement: I have seen and personally examined MILLY GREENWOOD and documented this H&P. The patient is a 89 year old M who presented with a patient stated chief complaint of [Shortness of breath]. 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 Due to increased shortness of breath patient's nephew brought the patient to ER. On evaluation patient denied any significant shortness of breath after receiving TRC treatment in ER. Patient reports being unsteady and short of breath on ambulation. He denies any productive cough, episode of fever or chills, chest pain, vomiting, abdominal pain, Urinary symptoms. patient is a social admission for placement issues rather than for medical issues. Allergies/Medications Allergies: Coded Allergies: NO KNOWN ALLERGIES (07/15/16) Home Med list Amoxicillin/Potassium Clav (Augmentin 875-125 Tablet) 875 MG-125 MG TABLET 1 TAB PO BID Aspiration pneumonia Insulin Glargine,Hum.rec.anlog (Lantus Solostar) 100 UNIT/ML (3 ML) INSULN.PEN 10 UNIT SC DAILY DIABETES (Reported) Metformin HCl 500 MG TABLET 1 TAB PO BID DIABETES (Reported) Pioglitazone Hydrochloride 30 MG TAB 1 TAB PO DAILY DIABETES (Reported) Trimethobenzamide HCl (Tigan) 300 MG CAPSULE 1 TAB PO TIDPRN PRN NAUSEA Compliance With Home Meds: GOOD Past History Travel History Traveled to [place] past 21 day No Medical History Neurological: ?PAZ GEHRIGS DISEASE W/ L VOCAL CORD PARALYSI EENT: NONE Cardiovascular: NONE Respiratory: NONE Gastrointestinal: G TUBE Hepatic: NONE Renal: NONE Musculoskeletal: osteoarthritis Psychiatric: NONE Endocrine: TYPE II DIABETIC Blood Disorders: NONE Cancer(s): prostate cancer PHARMACY ASSISTANT/Reproductive: NONE History of MRSA: No History of VRE: Yes History of CDIFF: No Surgical History Surgical History: G TUBE Past Family/Social History Family History Relations & Conditions if any Relation not specified for: FH: COPD (chronic obstructive pulmonary disease) Psychosocial History Services at Home: Home Health Aide, Nursing Primary Language: Japanese ETOH Use: denies use Illicit Drug Use: denies illicit drug use Living Will? no Functional Ability ADLs Independent: dressing. Ambulation: walker IADLs Needs Assist: shopping, housework, finances, food prep, telephone, transportation, medication admin. Review of Systems Review of Systems Constitutional: Reports: see HPI, malaise, weakness. EENTM: Reports: see HPI. Respiratory: Reports: see HPI, cough, short of breath. GI: Reports: see HPI, abdominal pain. Comments ROS negative except for the above. Exam & Diagnostic Data Last 24 Hrs of Vital Signs/I&O Vital Signs Date Time Temp Pulse Resp B/P Pulse O2 O2 Flow FiO2 Ox Delivery Rate 07/16 0020 98.2 94 20 110/58 94 Room Air 07/15 2347 98.3 88 18 135/75 96 Room Air 07/15 2223 97.9 89 20 132/66 96 Room Air 07/15 1958 97.5 110 20 136/85 95 Room Air Intake & Output 07/16 0800 07/16 0000 07/15 1600 Intake Total 0 Output Total Balance 0 Intake, Oral 0 Patient 65.771 kg 65.771 kg Weight Physical Exam General Appearance Alert, Oriented X3, Cooperative, No Acute Distress Skin No Rashes, No Breakdown, PEG tube in place HEENT Atraumatic, PERRLA, EOMI Neck Supple, No JVD Cardiovascular Normal S1, Normal S2, Systolic murmur present Lungs Normal Air Movement, decreased breath sounds in left side crackes evident on right side Abdomen Normal Bowel Sounds, Soft, No Tenderness, PEG in place Neurological Normal Tone Extremities No Clubbing, No Cyanosis, No Edema Vascular Pulses Symmetrical Body Front and Back (Adult) 1) PEG tube in place Assessment/Plan Assessment: Patient is a 89 YO M with PMH significant for 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 ER Vital signs T 98.6, HR 91, BP 126/74mmHg, saturating well on room air Labs revealed leukocytosis of 11,500 (was 9400 in the morning), H&H 9.8/29.6, platelet 167, normal electrolytes, BUN/creatinine 21/0.8 at the baseline, blood sugar 168, anion gap 12 EKG revealed normal sinus rhythm with unchanged Q waves in leads 3 aVF, left anterior fascicular block, QTC 511. Patient is admitted to the general medicine floor Aspiration pneumonia (RLL) with left pleural effusion * Patient hemodynamically stable saturating well on room air, no signs of sepsis * patient started on PO augmentin 875 mg PO Q12 on 07/13/16 (day #6 of antibiotic therapy). Patient planned to complete a total of 10 days abx for aspiration PNA. * Thoracentesis fluid suggests in the previous admission suggestive of exudative effusion, with initial differential including underlying malignancy, TB or chronic pneumonitis from aspirated tube feeds. AFB pending. * Pulmonary consult with Dr. Glass placed/appreciated, suggest patient should have further outpatient workup including quantiferon gold and collagen vascular workup if cytology negative * CXR at admission shows Of note, patient should have follow up CT chest without IV contrast after completion of 10 days antibiotics to assess for resolution of right mid/lower lung changes Nausea * Possibly secodary to gastroparesis * Cont tube feeding via PEG tube, patient at goal of 60 cc/h for 24h/day with glucerna 1.2 * PATIENT CANNOT TAKE ANY FOOD BY MOUTH (npo) as his modified barium swallow was abnormal with leakage of contrast into his trachea * Tigan PRN for nausea, avoid zofran - QTc 511 Diabetes mellitus * Stop oral hypoglycemics * NSS TID AC/HS * FSGs TIDAC/HS * Consideration for endocrinology consult with Dr. Garay, patient's PCP DVT prophylaxis * SC lovenox Code status * Full Code As Ranked By This Provider Problem List: 1. Pleural effusion 2. Vocal cord paralysis 3. Leukocytosis 4. Pneumonia 5. Diabetes mellitus Core Measures/Miscellaneous Acute Coronary Syndrome ACS Diagnosis: No Cerebrovascular Accident CVA/TIA Diagnosis: No Congestive Heart Failure CHF Diagnosis: No Venous Thromboembolism VTE Risk Factors: Cancer/chemo/oth therapy VTE Prophylaxis Ordered Inpt: Pharm- Eliquis No Mech VTE prophylaxis d/t: No contraindications No VTE Pharm Prophylaxis d/t: No contraindications VTE Diagnosis: No VTE Type: NONE VTE Confirmed by (Test): NONE Severe Sepsis Severe Sepsis Present: No Septic Shock Septic Shock Present: No Miscellaneous Documentation Attending Case Discussed With: SALOME POWERS MD Primary Care Physician: ALVINA GARAY MD Patient sees these Specialists Dr. garay for endocrine Dr. Cevallos cardiology Level of Patient Care: General Medicine BENIJ NGUYỄN MD 07/15/16 0014: Resident Review Statement Resident Statement: examined this patient, discussed with internal salesperson, agreed with internal salesperson, reviewed EMR data (avail), reviewed images, amended to note Other Findings: Ms. 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 Upon discharge patient was stable without any significant shortness of breath. He was discharged on recommendation to continue every feeding through PEG tube and ovoid any oral food intake due to increasesd risk of aspiration noted on barium swallow eval. Patient lives on second floor and while getting up stair patient developed sudden shortness of breath which lasted for an hour. Due to increased shortness of breath patient's nephew brought the patient to ER. On evaluation patient denied any significant shortness of breath after receiving TRC treatment in ER. Patient reports being unsteady and short of breath on ambulation. He denies any productive cough, episode of fever or chills, chest pain, vomiting, abdominal pain, Urinary symptoms. His vitals on admission were T 98.6, HR 91, RR 18, BP 126/74, O2 sat 94% on room air. On physical exam patient noted alert oriented 3 in no acute distress, HEENT PERRLA EOMI, neck supple, no elevated JVD, heart S1-S2 with grade 4/6 systolic murmur, mild right lower lobe crackles with decreased left lower base air entry, abdomen soft nontender nondistended with preserved fall sounds with PEG tube in place, no peripheral edema, no focal gross neuro deficit. Labs revealed leukocytosis of 11,500 (was 9400 in the morning), H&H 9.8/29.6, platelet 167, normal electrolytes, BUN/creatinine 21/0.8 at the baseline, blood sugar 168, anion gap 12 EKG revealed normal sinus rhythm with unchanged Q waves in leads 3 aVF, left anterior fascicular block, LVH, QTC 511. 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 1. Aspiration pneumonia - Patient remains afebrile with mild leukocytosis - We'll obtain chest x-ray - Continue oral Augmentin to complete 2 weeks course of antibiotic - TRC - Supplement O2 as needed - If patient spikes fever or becomes hypotensive sent blood and sputum culture 2. Type 2 diabetes Hold oral hypoglycemic agent Accu-Cheks Continue Levemir 10 units daily NovoLog sliding scale 3. Oropharyngeal dysphagia secondary to vocal cord paralysis with increase aspiration risk - Keep nothing by mouth - Continue tube feed with Glucerna 1.2 at 60 mL per hour with 1 75 mL water flushes every 6 hours - Aspiration precaution 4. PT evaluation and assessment for gait instability 5. DVT prophylaxis Subcutaneous Lovenox 6. Full code PRIYA,AARTERene 07/16/16 0411: Attending MD Review Statement Attending Statement Attending MD Statement: examined this patient, discuss w/resident/PA/RN FAMILY, agreed w/resident/PA/RN FAMILY, reviewed EMR data (avail), reviewed images, amended to note Attending Assessment/Plan: Cc Shortness of breath PMH: DM, ?Motoneuron disease, oropharyngeal dysphasia secondary to vocal cord paralysis on PEG tube feeding, osteoarthritis, history of prostate cancer S/P treatment Patient was admitted from July 09 to July 15, for aspiration pneumonia with parapneumonic effusion S/P thoracentesis, was discharged home on antibiotics per PEG tube. Patient went home and was getting short of breath so came to ER again. He was brought in by his nephew for difficulty breathing. According to patient he climbed 2 flights of stairs to his home and he could not catch his breath. ER reviewed x-ray films from previous hospitalization and admitted for worsening effusion. Patient also complains of intermittent left groin pain which has been going on since long time. He walks with walker. Vitals: Afebrile, HR 110 at presentation, RR 20, blood pressure and O2 saturation in acceptable range. Not requiring supplemental oxygen. On exam: A O 3, no acute distress, thin built, neck supple, no lymphadenopathy, no JVD, mucosa moist, no focal neurological deficit. Patient needs support for walking. CVS: S1-S2, RRR, systolic murmur in aortic area. RS: Decreased air entry on left lower lung field, no obvious wheezing or crackles heard. Abdomen: PEG present, no evidence of inflammation or infection around, soft, NT, ND, bowel sounds present Labs: WBC 11.5 otherwise no remarkable changes in his labs compared to labs done earlier this a.m. No imaging was obtained in ER A and P #1 shortness and hypoxia: Probably secondary to underlying pleural effusion with aspiration pneumonia currently under treatment. Continue his antibiotics as per his previous discharge. Repeat chest x-ray tomorrow morning with PA lateral view. Supplemental O2 if required, incentive spirometry, nothing by mouth, continue PEG feeding #2 DM: hold oral hypoglycemic, continue basal and sliding scale insulin. #3 OT PT evaluation, evaluate for STR replacement #4 DVT prophylaxis with Lovenox, adequate pain control.
--- NOTE | 2016-07-15 22:25 | NUR ---
PT A/O X4. RESP UNLABORED. NSR ON MONITOR. SKIN WARM AND DRY. PT DENIES CP AND SOB. PT APPEARS COMFORTBALE. NO APPARENT DISTRESS. WILL CONTINUE TO MONITOR.
--- NOTE | 2016-07-15 23:46 | NUR ---
PT A/O X4. RESP UNLABORED. NO APPARENT DISTRESS
--- NOTE | 2016-07-16 00:15 | NUR ---
PT ARRIVED TO FLOOR FROM ED BY WHEELCHAIR, ACCOMPANIED BY MST. PT WAS ABLE TO WALK FROM WHEELCHAIR TO BED W/ ASSIST X1. PT C/O NO SOB. VSS UPON ADMISSION TO FLOOR. PT IS A&OX3, ON RA, NO DISTRESS NOTED. LUNGS ARE CLEAR IN UPPER LOBES BUT ABSENT IN LOWER LOBES. PT IS NPO, ON ASPIRATION PRECAUTIONS, PEG TUBE TO R MID ABD, RECEIVING TUBE FEEDS AT 60 ML/HR. ON NPO SLIDING SCALE. BS WAS CHECKED WHEN PT ARRIVED TO FLOOR AND WAS 142. 2 UNITS WERE GIVEN PER NPO PROTOCOL. PTS SKIN INS INTACT, NO BREAKDOWN NOTED. ASSIST X1 W/ RW. PT IS ADMITTED FOR 23 HR OBSERVATION. PT BROUGHT ONE BAG OF BELONGINGS WITH HIM. SAFETY MAINTAINED, CALL CRAIN IN REACH. WILL CONTINUE TO MONITOR.
[2016-07-16 00:20] VITALS: BP 110/58
--- NOTE | 2016-07-16 07:03 | PN- Housestaff ---
See Addendum Subjective Follow-up For: Shortness of breath in the setting of left pleural effusion Oropharyngeal dysphagia with PEG tube feeds Nausea and vomiting Subjective: Patient seen and examined at bedside this AM. He denies nausea, vomiting, fever, chills, chest pain, palpitations. He did suggest that yesterday as he was ambulating up the stairs, he became severely short of breath and had to sit down to catch his breath. He was able to breath fine after a few seconds of being sedentary. He currently denies shortness of breath or other respiratory complaints. Review of Systems Constitutional: Denies: chills, fever, malaise, weakness. EENTM: Denies: blurred vision, visual changes, hearing changes, nasal congestion, throat pain. Cardiovascular: Denies: chest pain, palpitations. Respiratory: Denies: cough, short of breath, sputum production. Gastrointestinal: Denies: abdominal pain, bloating, constipation, diarrhea. Genitourinary: Reports: no symptoms. Musculoskeletal: Denies: back pain. Skin: Denies: rash. Neurological/Psychological: Denies: confusion, headache, numbness, tremors. Hematologic/Endocrine: Denies: bruising, bleeding, polyuria, polydipsia. Objective Last 24 Hrs of Vital Signs/I&O Vital Signs Date Time Temp Pulse Resp B/P Pulse O2 O2 Flow FiO2 Ox Delivery Rate 07/16 0917 Room Air 07/16 0902 Room Air 07/16 0800 Room Air 07/16 0716 97.6 88 20 126/80 97 Room Air 07/16 0020 98.2 94 20 110/58 94 Room Air 07/15 2347 98.3 88 18 135/75 96 Room Air 07/15 2223 97.9 89 20 132/66 96 Room Air 07/15 1958 97.5 110 20 136/85 95 Room Air Intake & Output 07/16 1600 07/16 0800 07/16 0000 Intake Total 475 0 Output Total 150 Balance 325 0 Intake, Oral 0 Intake, Tube 300 Feeding Intake, Tube 175 Irrigant Number 1 1 Bowel Movements Output, Urine 150 Patient 145 lb 145 lb Weight Physical Exam General Appearance: Alert, Oriented X3, Cooperative, No Acute Distress Skin: No Rashes, No Significant Lesion HEENT: Atraumatic, Mucous Membr. moist/pink Neck: Supple, No JVD Lymphatic: Axillary nl, Cervical nl Cardiovascular: Regular Rate, Normal S1, Normal S2, Systolic murmur appreciated Lungs: Normal Air Movement, Diminished breath sounds noted at left lung base, normal air movement, no wheezing or rhonchi appreciated, no tachypnea noted. Abdomen: Normal Bowel Sounds, Soft, No Tenderness, No Hepatospenomegaly, No Masses Neurological: Normal Speech, Normal Tone Extremities: No Clubbing, No Cyanosis, No Edema Vascular: Pulses Symmetrical Current Medications: Current Medications Sig/Lisa Start time Last Medication Dose Route Stop Time Status Admin Acetaminophen 650 MG Q6P PRN 07/16 0015 AC PO Albuterol Sulfate 3 ML ONCE ONE 07/15 2030 DC 07/15 INH 07/15 Amoxicillin/ 875 MG BID 07/16 1200 AC 07/16 Clavulanate Potassium PO 07/19 1001 1150 Amoxicillin/ 875 MG BID 07/16 0003 AC 07/16 Clavulanate Potassium PO 07/19 1001 0301 Enoxaparin Sodium 40 MG DAILY 07/16 1000 AC 07/16 SC 0954 Insulin Detemir 10 UNITS DAILY 07/16 1000 AC SC Insulin Human Regular 0 Q6 07/16 0005 AC 07/16 SC 0700 Ipratropium [place] 2.5 ML ONCE ONE 07/15 2030 DC 07/15 INH 07/15 Morphine Sulfate 2 MG Q4P PRN 07/16 0015 AC IV Morphine Sulfate 2 MG Q4P PRN 07/15 2215 CAN IV Oxycodone HCl 5 MG Q6P PRN 07/16 0015 AC PO Trimethobenzamide HCl 200 MG 4 TIMES/DAY PRN 07/16 0015 AC IM Last 24 Hrs of Lab/Bradley Results Last 24 Hrs of Labs/Mics: Laboratory Tests 07/16/16 0705: Anion Gap 9, Estimated GFR > 60, BUN/Creatinine Ratio 25.7 H, C-Reactive Prot, Quant > 9.0 H, CBC w Diff NO MAN DIFF REQ, RBC 2.71 L, MCV 92.4, MCH 30.7, RDW 13.3, MPV 11.1 H, Gran % 79.9 H, Lymphocytes % 5.7 L, Monocytes % 11.3 H, Eosinophils % 2.4, Basophils % 0.7, Absolute Granulocytes 7.0 H, Absolute Lymphocytes 0.5 L, Absolute Monocytes 1.0 H, Absolute Eosinophils 0.2, Absolute Basophils 0.1, PUBS MCHC 33.3, Rheum Factor Semi-Quant < 8.6 07/16/16 0600: DIANA Titer Pending, Anti-Nuclear Antibody Pending 07/15/16 2100: Anion Gap 12, Estimated GFR > 60, BUN/Creatinine Ratio 26.3 H, Glucose 168 H, Calcium 8.5, Total Bilirubin 0.6, AST 28, ALT 25, Alkaline Phosphatase 108, Total Protein 7.3, Albumin 3.2 L, Globulin 4.1, Albumin/Globulin Ratio 0.8 L, CBC w Diff NO MAN DIFF REQ, RBC 3.20 L, MCV 92.6, MCH 30.7, RDW 13.8, MPV 11.1 H, Gran % 86.9 H, Lymphocytes % 4.0 L, Monocytes % 7.9, Eosinophils % 1.1, Basophils % 0.1, Absolute Granulocytes 10.0 H, Absolute Lymphocytes 0.5 L, Absolute Monocytes 0.9 H, Absolute Eosinophils 0.1, Absolute Basophils 0, PUBS MCHC 33.2 Microbiology 07/16 1011 BODY FLUID: Body Fluid Culture - COLB 07/16 1011 BODY FLUID: Gram Stain - COLB Orders Radiology Findings: EXAMINATION: XR CHEST CLINICAL INFORMATION: Pneumonia, pleural effusion COMPARISON: 07/14/2016 TECHNIQUE: PA and lateral views of the chest were obtained. FINDINGS: There is a redemonstrated moderate sized left pleural effusion tracking along the lateral left hemithorax. Areas of parenchymal opacification in the mid to lower left lung are redemonstrated. Hazy opacification of the perihilar right lung is without significant change. No evidence of pneumothorax or right pleural effusion. Cardiac size is within normal limits. Calcification is present at the aortic arch. No acute osseous findings are seen. IMPRESSION: Redemonstrated moderate sized left pleural effusion with adjacent parenchymal opacification, without significant change from 07/14/2016. Hazy right perihilar opacity also appears similar to prior. Assessment/Plan Assessment: Mr. 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 Patient was discharged home on antibiotics via PEG tube and became acutely short of breath after walking up 2 flights of stairs, requiring him to sit down and catch his breath. In the ED: Vital signs showed T 97.5, HR 110, RR 20, BP 136/85 and O2 saturation of 95% on RA. Labs showed leukocytosis of 11,500 (was noted to be 9400 in the morning), H&H 9.8/29.6, platelet 167, normal electrolytes, BUN/creatinine 21/0.8 at baseline, blood sugar 168 and anion gap of 12. Patient was admitted to the general medicine floor and the following is the management: 1. Paraneumonic effusion with associated shortness of breath on exertion * Patient hemodynamically stable and saturating well on room air, provide supplemental O2 to keep sats >92% * Pulm consult with Dr. Glass placed and appreciated, follow rec's * Repeat CXR today shows persistent moderate sized left pleural effusion with adjacent parenchymal opacification (no significant change from 07/14/14) * Patient was scheduled for thoracentesis today, however he received SC lovenox and will not be able to have this procedure today * We will schedule outpatient thoracentesis with cytology, adenosine deaminase, pleural fluid flow cytometry and collagen vascular studies. These results will be sent to Dr. Glass who will further manage this issue * Dr. Glass is ordering the thoracentesis today, we will await insurance approval and then the IR department will call the patient to set up the procedure * TRC nebs as needed * If patient becomes febrile, hypotensive, or has leukocytosis * PT consulted, f/u rec's 2. Aspiration PNA with nausea * Patient to complete his oral abx course while inpatient (continue augmentin) * Tube feed rates adjusted during last admission, continue at 60 cc/h of glucerna 1.2 with feeds going 24 h/day * Aspiration precautions * Patient MAY NOT take in any oral intake, he is to remain NPO * Continue tigan for nausea, avoid zofran (prolonged QTC) 3. DM type 2 * Continue NSS, levemir 10 U SC daily * Accuchecks TIDAC/HS * Continue home diabetic regimen upon discharge FULL CODE DVTP: SC lovenox Glucerna 1.2 tube feeds Mild pain pathway Problem List: 1. Diabetes mellitus 2. GERD 3. Osteoarthritis 4. Oropharyngeal dysphagia 5. Pleural effusion 6. Vocal cord paralysis 7. Pneumonia Pain Ratin Pain Location: n/a Pain Goal: Remain pain free Pain Plan: Mild pain pathway. Tomorrow's Labs & Rationales: If patient not discharged to ECF, consider CBC to monitor dropping H&H (possibly dilutional?).
[2016-07-16 07:16] VITALS: BP 126/80
[2016-07-16 08:19] LABS: ABSOLUTE BASOPHIL COUNT 0.1 /CUMM (0.0-0.2); ABSOLUTE EOSINOPHIL COUNT 0.2 /CUMM (0.0-0.7); ABSOLUTE LYMPH COUNT 0.5 /CUMM (1.2-3.4); BASOPHIL % 0.7 % (0.0-2.0); EOSINOPHIL % 2.4 % (0-5); GRANULOCYTE % 79.9 % (42.2-75.2); MEAN CORPUSCULAR HGB 30.7 PG (27.0-31.0); MEAN CORPUSCULAR HGB CONC 33.3 G/DL (33.0-37.0); MEAN CORPUSCULAR VOLUME 92.4 FL (80.0-94.0); MEAN PLATELET VOLUME 11.1 FL (7.4-10.4); PLATELET COUNT 154 /CUMM (130-400); RBC DISTRIBUTION WIDTH 13.3 % (11.5-14.5); RED BLOOD CELL CT 2.71 /CUMM (4.70-6.10); WHITE BLOOD CELL COUNT 8.8 /CUMM (4.8-10.8)
--- NOTE | 2016-07-16 08:21 | PN- Pulmonary ---
Subjective HPI/Critical Care Issues: Patient reported short of breath while climbing stairs. Respiratory status is at baseline, he remains on room air, he continues to be afebrile, Objective Current Medications: Current Medications Sig/Lisa Start time Last Medication Dose Route Stop Time Status Admin Acetaminophen 650 MG Q6P PRN 07/16 0015 AC PO Albuterol Sulfate 3 ML ONCE ONE 07/15 2029 DC 07/15 INH 07/15 Amoxicillin/ 875 MG BID 07/16 0003 AC 07/16 Clavulanate Potassium PO 07/19 1001 0301 Enoxaparin Sodium 40 MG DAILY 07/16 1000 AC SC Insulin Detemir 10 UNITS DAILY 07/16 1000 AC SC Insulin Human Regular 0 Q6 07/16 0005 AC 07/16 SC 0700 Ipratropium [place] 2.5 ML ONCE ONE 07/15 2029 DC 07/15 INH 07/15 Morphine Sulfate 2 MG Q4P PRN 07/16 0015 AC IV Morphine Sulfate 2 MG Q4P PRN 07/155 CAN IV Oxycodone HCl 5 MG Q6P PRN 07/16 0015 AC PO Trimethobenzamide HCl 200 MG 4 TIMES/DAY PRN 07/16 0015 AC IM Vital Signs & I&O Last 24 Hrs of Vitals and I&O: Vital Signs Date Time Temp Pulse Resp B/P Pulse O2 O2 Flow FiO2 Ox Delivery Rate 07/16 0716 97.6 88 20 126/80 97 Room Air 07/16 0020 98.2 94 20 110/58 94 Room Air 07/15 2347 98.3 88 18 135/75 96 Room Air 07/15 2223 97.9 89 20 132/66 96 Room Air 07/15 1958 97.5 110 20 136/85 95 Room Air Intake & Output 07/16 1600 07/16 0800 07/16 0000 Intake Total 475 0 Output Total 150 Balance 325 0 Intake, Oral 0 Intake, Tube 300 Feeding Intake, Tube 175 Irrigant Number 1 Bowel Movements Output, Urine 150 Patient 145 lb 145 lb Weight Room air oxygen saturation 97% exam of his chest shows diminished breath sounds left base cardiac exam shows regular S1 and S2 without murmurs he remains afebrile Impression/Plan Impression/Plan Impression/Plan: Suggest repeat thoracentesis and obtain adenosine deaminase level as well as pleural fluid flow cytometry and collagen vascular studies. In addition to routine studies
--- NOTE | 2016-07-16 09:23 | NUR ---
PHYSICAL THERAPY- CONSULT RECEIVED, CHART REVIEWED. PT KNOWN TO P.T. FROM RECENT ADMISSION AND CLEARANCE FOR HOME D/C 2* SAFE AMBULATION/STAIR NEGOTIATION. PT W/ CHRONIC PLEURAL EFFUSION, HOWEVER, CONT TO MOBILIZE SAFELY AT THIS TIME. NO SKILLED ACUTE P.T. NEEDS IDENTIFIED, WILL NOT FOLLOW. IF D/C TO STR RECOMMENDED BY MEDICAL STAFF FOR PULMONARY REASONS, WILL NEED TO PLACE PT 2* ABOVE. D/W CASE MGMT.
--- NOTE | 2016-07-16 09:25 | RADIOLOGY REPORT ---
EXAMINATION: XR CHEST CLINICAL INFORMATION: Pneumonia, pleural effusion COMPARISON: 07/14/2016 TECHNIQUE: PA and lateral views of the chest were obtained. FINDINGS: There is a redemonstrated moderate sized left pleural effusion tracking along the lateral left hemithorax. Areas of parenchymal opacification in the mid to lower left lung are redemonstrated. Hazy opacification of the perihilar right lung is without significant change. No evidence of pneumothorax or right pleural effusion. Cardiac size is within normal limits. Calcification is present at the aortic arch. No acute osseous findings are seen. IMPRESSION: Redemonstrated moderate sized left pleural effusion with adjacent parenchymal opacification, without significant change from 07/14/2016. Hazy right perihilar opacity also appears similar to prior.
--- NOTE | 2016-07-16 13:54 | Patient Discharge Instructions ---
Discharge Instructions General Discharge Information You were seen/treated for: Parapneumonic effusion Nausea and vomiting Pneumonia Special Instructions: Please follow up with Dr. Glass within 5 days of discharge for further workup. Please also follow up with your PCP within 5 days of discharge. Please do tube feedings as intructed. Goal rate 60 cc/h for 24 h/day. Follow up with your system developer associate manager within 1 week of discharge for monitoring of your intake. DO NOT TAKE ANYTHING BY MOUTH, YOU ONLY MAY USE YOUR TUBE FEEDS. Please take all medications as directed. We have sent a request for outpatient thoracentesis. Once this is verified by your insurance, interventional radiology will call to schedule this. Please schedule as soon as possible. Send results to Dr. Glass. Diet Recommended Diet: NPO with tube feeds. Activity Activity Self Limited: Yes Acute Coronary Syndrome Inclusion Criteria At DC or during hospital stay patient has or had the following: ACS DIAGNOSIS No Discharge Core Measures Meds if any: Prescribed or Continued at Discharge Meds if any: NOT Prescribed or Continued at Discharge Congestive Heart Failure Inclusion Criteria At DC or during hospital stay patient has or had the following: CHF DIAGNOSIS No Discharge Core Measures Meds if any: Prescribed or Continued at Discharge Meds if any: NOT Prescribed or Continued at Discharge Cerebrovascular accident Inclusion Criteria At DC or during hospital stay patient has or had the following: CVA/TIA Diagnosis No Discharge Core Measures Meds if any: Prescribed or Continued at Discharge Meds if any: NOT Prescribed or Continued at Discharge Venous thromboembolism Inclusion Criteria VTE Diagnosis No VTE Type NONE VTE Confirmed by (Test) NONE Discharge Core Measures - Per Current guidelines, there needs to be overlap - treatment for the first 5 days of Warfarin therapy. - If discharged on Warfarin prior to 5 days of - overlap therapy, the patient will need to be - assessed for post discharge needs including - *Post discharge parental anticoagulation - *Warfarin and/or parental anticoagulation education - *Follow up date to check INR post discharge At least 5 days overlap therapy as Inpatient No Meds if any: Prescribed or Continued at Discharge Note: Overlap Therapy is Warfarin and Anticoagulant Meds if any: NOT Prescribed or Continued at Discharge
--- NOTE | 2016-07-16 14:30 | Discharge Summary ---
Visit Information Visit Dates Admission Date: 07/15/16 Discharge Date: 07/16/2016 Hospital Course Course Attending Physician: THALIA BETHEA M.D Primary Care Physician: ALVINA BRITO MD Hospital Course: Ms. 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 Upon discharge patient was stable without any significant shortness of breath. He was discharged on recommendation to continue every feeding through PEG tube and ovoid any oral food intake due to increasesd risk of aspiration noted on barium swallow eval. Patient lives on second floor and while getting up stair patient developed sudden shortness of breath which lasted for an hour. Due to increased shortness of breath patient's nephew brought the patient to ER. On evaluation patient denied any significant shortness of breath after receiving TRC treatment in ER. Patient reports being unsteady and short of breath on ambulation. He denies any productive cough, episode of fever or chills, chest pain, vomiting, abdominal pain, Urinary symptoms. His vitals on admission were T 98.6, HR 91, RR 18, BP 126/74, O2 sat 94% on room air. On physical exam patient noted alert oriented 3 in no acute distress, HEENT PERRLA EOMI, neck supple, no elevated JVD, heart S1-S2 with grade 4/6 systolic murmur, mild right lower lobe crackles with decreased left lower base air entry, abdomen soft nontender nondistended with preserved fall sounds with PEG tube in place, no peripheral edema, no focal gross neuro deficit. Labs revealed leukocytosis of 11,500 (was 9400 in the morning), H&H 9.8/29.6, platelet 167, normal electrolytes, BUN/creatinine 21/0.8 at the baseline, blood sugar 168, anion gap 12 EKG revealed normal sinus rhythm with unchanged Q waves in leads 3 aVF, left anterior fascicular block, LVH, QTC 511. 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 1. Aspiration pneumonia/Plural effusion Patient and one episode of thoracocentesis on her last admission which showed exudative effusion. We continued Augmentin. Pleural effusion was the same as 2 days ago. Patient vital signs were stable. No fever was observed. Per pulmonology patient should follow-up in outpatient setting for thoracocentesis and further workup of the pleural effusion such as ADA, QuantiFERON gold, vascular disease studies. Dr. Vargas will arrange the thoracocentesis on Tuesday07/19/2016. 2. Type 2 diabetes Were stopped oral anti-glycemic medication and put the patient on NPO sliding scale insulin. Patient was put back on his home regimen upon discharge. 3. Oropharyngeal dysphagia secondary to vocal cord paralysis with increase aspiration risk we Continued tube feed with Glucerna 1.2 at 60 mL per hour with 75 mL water flushes every 6 hours. 4. gait instability: Considered in the PT evaluation and his medical condition patient was deemed to be suitable to STR. Allergies: Coded Allergies: NO KNOWN ALLERGIES (07/15/16) Pertinent Lab Results: Laboratory Tests 07/16 07/16 07/16 1011 1011 0705 Chemistry Sodium (137 - 145 mmol/L) 142 Potassium (3.5 - 5.1 mmol/L) 4.3 Chloride (98 - 107 mmol/L) 106 Carbon Dioxide (22 - 30 mmol/L) 26 Anion Gap (5 - 16) 9 BUN (9 - 20 mg/dL) 18 Creatinine (0.7 - 1.2 mg/dL) 0.7 Estimated GFR (>60 ml/min) > 60 BUN/Creatinine Ratio (7 - 25 %) 25.7 H C-Reactive Prot, Quant (<1.0 mg/dL) > 9.0 H Hematology CBC w Diff NO MAN DIFF REQ WBC (4.8 - 10.8 /CUMM) 8.8 RBC (4.70 - 6.10 /CUMM) 2.71 L Hgb (14.0 - 18.0 G/DL) 8.3 L Hct (42 - 52 %) 25.0 L MCV (80.0 - 94.0 FL) 92.4 MCH (27.0 - 31.0 PG) 30.7 RDW (11.5 - 14.5 %) 13.3 Plt Count (130 - 400 /CUMM) 154 MPV (7.4 - 10.4 FL) 11.1 H Gran % (42.2 - 75.2 %) 79.9 H Lymphocytes % (20.5 - 51.1 %) 5.7 L Monocytes % (1.7 - 9.3 %) 11.3 H Eosinophils % (0 - 5 %) 2.4 Basophils % (0.0 - 2.0 %) 0.7 Absolute Granulocytes (1.4 - 6.5 /CUMM) 7.0 H Absolute Lymphocytes (1.2 - 3.4 /CUMM) 0.5 L Absolute Monocytes (0.10 - 0.60 /CUMM) 1.0 H Absolute Eosinophils (0.0 - 0.7 /CUMM) 0.2 Absolute Basophils (0.0 - 0.2 /CUMM) 0.1 PUBS MCHC (33.0 - 37.0 G/DL) 33.3 Immunology Rheum Factor Semi-Quant (<12 IU/Ml) < 8.6 Miscellaneous Flow Cytometry Specimen Cancelled Ref Lab Test Result Cancelled Other Body Source Fluid WBC Cancelled Fld Total RBCs Counted Cancelled 07/16 07/15 0600 2100 Chemistry Sodium (137 - 145 mmol/L) 141 Potassium (3.5 - 5.1 mmol/L) 4.6 Chloride (98 - 107 mmol/L) 104 Carbon Dioxide (22 - 30 mmol/L) 26 Anion Gap (5 - 16) 12 BUN (9 - 20 mg/dL) 21 H Creatinine (0.7 - 1.2 mg/dL) 0.8 Estimated GFR (>60 ml/min) > 60 BUN/Creatinine Ratio (7 - 25 %) 26.3 H Glucose (65 - 99 mg/dL) 168 H Calcium (8.4 - 10.2 mg/dL) 8.5 Total Bilirubin (0.2 - 1.3 mg/dL) 0.6 AST (17 - 59 U/L) 28 ALT (21 - 72 U/L) 25 Alkaline Phosphatase (< 127 U/L) 108 Total Protein (6.3 - 8.2 g/dL) 7.3 Albumin (3.5 - 5.0 g/dL) 3.2 L Globulin (1.9 - 4.2 gm/dL) 4.1 Albumin/Globulin Ratio (1.1 - 2.2 %) 0.8 L Hematology CBC w Diff NO MAN DIFF REQ WBC (4.8 - 10.8 /CUMM) 11.5 H RBC (4.70 - 6.10 /CUMM) 3.20 L Hgb (14.0 - 18.0 G/DL) 9.8 L Hct (42 - 52 %) 29.6 L MCV (80.0 - 94.0 FL) 92.6 MCH (27.0 - 31.0 PG) 30.7 RDW (11.5 - 14.5 %) 13.8 Plt Count (130 - 400 /CUMM) 167 MPV (7.4 - 10.4 FL) 11.1 H Gran % (42.2 - 75.2 %) 86.9 H Lymphocytes % (20.5 - 51.1 %) 4.0 L Monocytes % (1.7 - 9.3 %) 7.9 Eosinophils % (0 - 5 %) 1.1 Basophils % (0.0 - 2.0 %) 0.1 Absolute Granulocytes (1.4 - 6.5 /CUMM) 10.0 H Absolute Lymphocytes (1.2 - 3.4 /CUMM) 0.5 L Absolute Monocytes (0.10 - 0.60 /CUMM) 0.9 H Absolute Eosinophils (0.0 - 0.7 /CUMM) 0.1 Absolute Basophils (0.0 - 0.2 /CUMM) 0 PUBS MCHC (33.0 - 37.0 G/DL) 33.2 Immunology DIANA Titer Pending Anti-Nuclear Antibody Pending PATIENT: MILLY GREENWOOD PRESENT AGE: 89 PATIENT ACCOUNT NO: [id number] : [birth year] LOCATION: [facility] ORDERING PHYSICIAN: BENJI NGUYỄN MD SERVICE DATE: 07/16/16- EXAM TYPE: RAD - XRY-CHEST XRAY, PA AND LATERAL EXAMINATION: XR CHEST CLINICAL INFORMATION: Pneumonia, pleural effusion COMPARISON: 07/14/2016 TECHNIQUE: PA and lateral views of the chest were obtained. FINDINGS: There is a redemonstrated moderate sized left pleural effusion tracking along the lateral left hemithorax. Areas of parenchymal opacification in the mid to lower left lung are redemonstrated. Hazy opacification of the perihilar right lung is without significant change. No evidence of pneumothorax or right pleural effusion. Cardiac size is within normal limits. Calcification is present at the aortic arch. No acute osseous findings are seen. IMPRESSION: Redemonstrated moderate sized left pleural effusion with adjacent parenchymal opacification, without significant change from 07/14/2016. Hazy right perihilar opacity also appears similar to prior. DICTATED BY: MARVA VILLANUEVA MD DATE/TIME DICTATED:07/16/16918 JIG BORER:CARLOS DATE/TIME TRANSCRIBED:07/16/16918 CONFIDENTIAL, DO NOT COPY WITHOUT APPROPRIATE AUTHORIZATION. <Electronically signed in Other Vendor System> SIGNED BY: MARVA VILLANUEVA MD 07/16/16924 Disposition Summary Disposition Principal Diagnosis: Pleural effusion Additional Diagnosis: Aspiration pneumonia Diabetes Discharge Disposition: SNF Discharge Instructions General Discharge Information Code Status: Full Code Patient's Diet: diabetic/ tube feeding Patient's Activity: As tolerated Follow-Up Instructions/Appts: Please follow up with Dr. Cam within 5 days of discharge for further workup. Please also follow up with your PCP within 5 days of discharge. Please do tube feedings as intructed. Goal rate 60 cc/h for 24 h/day. 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 DO NOT TAKE ANYTHING BY MOUTH, YOU ONLY MAY USE YOUR TUBE FEEDS. Please take all medications as directed. We have scheduled you an outpatient thoracentesis Medications at Discharge Discharge Medications: Continue taking these medications: Pioglitazone Hydrochloride (Pioglitazone Hydrochloride) 30 MG TAB 1 Tablet ORAL DAILY Qty = 30 Insulin Glargine,Hum.rec.anlog (Lantus Solostar) 100 UNIT/ML (3 ML) INSULN.PEN 10 Unit Inject into fatty tissue DAILY Qty = 15 Comments: Last Taken: 07/15/16 Time: 0900AM ALTERNATIVE LEVEMIR DOSE HELD THIS AM. Metformin HCl (Metformin HCl) 500 MG TABLET 1 Tablet ORAL TWICE DAILY Qty = 60 Comments: NOT GIVEN IN HOSPITAL Amoxicillin/Potassium Clav (Augmentin 875-125 Tablet) 875 MG-125 MG TABLET 1 Tablet ORAL TWICE DAILY Qty = 8 Comments: Last Taken: 07/16/16 Time: 12 NOON Trimethobenzamide HCl (Tigan) 300 MG CAPSULE 1 Tablet ORAL THREE TIMES A DAY NEEDED as needed for NAUSEA Qty = 30 Comments: Last Taken:07/15/16 Time:0800AM Copies To: MILLY CAM MD; ALVINA BRITO MD. Copies To: MILLY CAM MD; ALISHA VALLEJO,ALVINA Olivares.
[2016-07-16 15:07] VITALS: BP 126/80
--- NOTE | 2016-07-16 16:36 | Event Note ---
Event Note Event Note: Notified by invasive imaging that patient is scheduled for thoracentesis this coming Tuesday at 07/19/16 at 8:30 AM. He does not need to turn off his tube feedings for this procedure. He should not take motrin or advil or any other medication that may thin his blood prior to the procedure. He should bring a list of all his medications to this appointment. All of this information was relayed to patient's daugther Kalpana and she is aware of these responsibilities.
== END 2016-07-16 16:15 ==
LOC: ENRESERVTM → ENRESERVDT → ERH 19:52 → 2NB 21:42 → ERHI 21:42 → 2NB 23:54
PROVIDERS: Internal Medicine; Physician Assistant Medical; ADMIT Internal Medicine
DX: J90 Pleural effusion, not elsewhere classified (principal); E11.9 Type 2 diabetes mellitus without complications; Z85.46 Personal history of malignant neoplasm of prostate; M19.90 Unspecified osteoarthritis, unspecified site
CPT/HCPCS: 1263; 6040; 87075; 82436; 86431; 88184; 93005; 93010; 96372; G0378; J1650; J3250

== ENCOUNTER 2016-07-23 21:32 | Inpatient (IN) | payer OTHER, MEDICARE ==
[~2016-07-23] VITALS: Ht 177.8 cm; Wt 65.8 kg
--- NOTE | 2016-07-23 21:37 | ED DYSPNEA/ASTHMA COMPLAINT ---
History of Present Illness General Chief Complaint: Dyspnea (COPD, CHF, Other) Stated Complaint: DIFF BREAHTING Source: patient Exam Limitations: no limitations Vital Signs & Intake/Output Vital Signs & Intake/Output Vital Signs Date Time Temp Pulse Resp B/P Pulse O2 O2 Flow FiO2 Ox Delivery Rate 07/24 0016 98 Non ReBreather 07/23 2349 97.1 124 20 138/71 97 Non ReBreather 07/23 2156 90 Non 100% ReBreather 07/239 22 94 Non 100% ReBreather 07/23 2137 97.1 144 24 109/75 70 Aerosol 8L Mask ED Intake and Output 07/24 0000 07/23 1200 Intake Total Output Total Balance Patient 170 lb Weight Allergies Coded Allergies: NO KNOWN ALLERGIES (07/15/16) Reconcile Medications Acetaminophen (Q-Pap) 325 MG TABLET 2 TAB PEG Q4H PRN PAIN/TEMP>101 (Reported ) Acetaminophen (Acephen) 650 MG SUPP.RECT 1 SUPP RI Q4H PRN PAIN/TEMP>101 ( Reported) Insulin Glargine,Hum.rec.anlog (Lantus Solostar) 100 UNIT/ML (3 ML) INSULN.PEN 10 UNIT SC QHS DIABETES (Reported) Lactobacillus Acidophilus (Acidophilus) 1 EACH CAPSULE 1 CAP PEG BID PROBIOTIC (Reported) Magnesium Hydroxide (Milk Of Magnesia) 400 MG/5 ML ORAL.SUSP 30 ML PEG PRN CONSTIPATION (Reported) Metformin HCl 500 MG TABLET 1 TAB PEG BID DIABETES (Reported) Na Phos,M-B/Na Phos,Di-Ba (Fleet Enema) 19 GRAM-7 GRAM/118 ML ENEMA 1 E RC PRN CONSTIPATION (Reported) Nut.tx.gluc.intoler,Lac-Fr,Soy (Glucerna 1.2 Daniele) 237 ML LIQUID 70 ML PEG AD NUTRITIONAL SUPPLEMENT (Reported) Pioglitazone HCl 30 MG TABLET 1 TAB PEG DAILY DM (Reported) Saliva Substitute Combo No.9 (Biotene) 473 ML MOUTHWASH 15 ML PO 4XDAILY ORAL RINSE (Reported) Trimethobenzamide HCl (Tigan) 300 MG CAPSULE 1 TAB PO TIDPRN PRN NAUSEA Triage Nurses Notes Reviewed? yes Onset: Abrupt Duration: minute(s): Timing: single episode today Severity: severe Activities at Onset: ASPIRATED THIS EVENING Prior Episodes/Possible Cause: occasional episodes Modifying Factors: Worsens With: other (ASPIRATED). HPI: 89 yo gentleman, h/o aspiration, dysphagia, was placed off aspiration precautions this evening, was witnessed to have episode of aspiration at the [facility]. He developed dyspnea. He was hypoxic to 85% on 10liter mask with copious secretions. He had no fever chills vomiting diarrhea. He was otherwise well. Past History Travel History Traveled to [place] past 21 day No Medical History Any Pertinent Medical History? 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 EENT: NONE Cardiovascular: NONE Respiratory: NONE Gastrointestinal: G TUBE Hepatic: NONE Renal: NONE Musculoskeletal: osteoarthritis Psychiatric: NONE Endocrine: TYPE II DIABETIC Blood Disorders: NONE Cancer(s): prostate cancer NURSING COORDINATOR/Reproductive: NONE History of MRSA: No History of VRE: Yes History of CDIFF: No Surgical History Surgical History: G TUBE Psychosocial History Who do you live with Patient/Self Services at Home Home Health Aide, Nursing What is your primary language Cook Islander Family History Family History, If Any: Relation not specified for: FH: COPD (chronic obstructive pulmonary disease) Hx Contributory? No Review of Systems Review of Systems Constitutional: Reports: no symptoms. EENTM: Reports: no symptoms. Respiratory: Reports: no symptoms. Cardiovascular: Reports: no symptoms. GI: Reports: no symptoms. Genitourinary: Reports: no symptoms. Musculoskeletal: Reports: no symptoms. Skin: Reports: no symptoms. Neurological/Psychological: Reports: no symptoms. Hematologic/Endocrine: Reports: no symptoms. Immunologic/Allergic: Reports: no symptoms. All Other Systems: Reviewed and Negative Physical Exam Physical Exam General Appearance: well developed/nourished, moderate distress, severe distress Head: atraumatic, normal appearance Eyes: Bilateral: normal appearance. Ears, Nose, Throat: normal pharynx, normal ENT inspection Neck: normal inspection, supple Respiratory: respiratory distress, bilateral rhonchi Cardiovascular: regular rate/rhythm Gastrointestinal: normal bowel sounds, soft, non-tender Extremities: normal inspection Neurologic/Psych: poor gag reflex Skin: intact Core Measures ACS in differential dx? No Severe Sepsis Present: No Septic Shock Present: No Progress Differential Diagnosis: aspiration pneumonia versus pneumonitis versus sepsis versus other Plan of Care: Orders Procedure Date/time Status LACTIC ACID 07/24 0057 Active Patient Data 07/24 0007 Active EKG 02/03 2232 Active LACTIC ACID 07/23 2156 Active BLOOD CULTURE 07/23 2139 Active ARTERIAL BLOOD GAS (GEN) 07/23 2137 Complete BLOOD CULTURE 07/23 2137 Active TROPONIN LEVEL 07/23 2137 Complete MAGNESIUM 07/23 2137 Complete COMPREHENSIVE METABOLIC PANEL 07/23 2137 Complete CBC WITHOUT DIFFERENTIAL 07/23 2137 Complete EKG 07/23 2137 Active Laboratory Tests 07/23/162234: CBC w Diff MAN DIFF ORDERED, RBC 3.51 L, MCV 92.3, MCH 29.5, RDW 14.2, MPV 10.7 H, Gran % 93.3 H, Lymphocytes % 3.1 L, Monocytes % 2.8, Eosinophils % 0.7, Basophils % 0.1, Absolute Granulocytes 20.7 H, Segmented Neutrophils 93 H, Band Neutrophils 4, Absolute Lymphocytes 0.7 L, Lymphocytes 1 L, Monocytes 1 L, Absolute Monocytes 0.6, Eosinophils 1, Absolute Eosinophils 0.1, Absolute Basophils 0, Platelet Estimate VERIFIED BY SMEAR, Normocytic RBCs VERIFIED, Normochromic RBCs VERIFIED, PUBS MCHC 32.0 L, Fld Total RBCs Counted 100 07/23/162212: Anion Gap 13, Estimated GFR > 60, BUN/Creatinine Ratio 27.8 H, Glucose 345 H, Calcium 9.0, Magnesium 1.8, Total Bilirubin 0.5, AST 19, ALT 21, Alkaline Phosphatase 159 H, Troponin I 0.03, Total Protein 7.7, Albumin 3.2 L, Globulin 4.5 H, Albumin/Globulin Ratio 0.7 L 07/23/162149: pH 7.33 L, pCO2 42, pO2 59 L, HCO3 22, ABG O2 Sat (Measured) 88.0 L, P-50 ( Temp Corrected) YES, Carboxyhemoglobin 0.3 L, O2 Concentration % 6L, Temperature 97.1, O2 Delivery Method NEB TREATMENT, Phlebotomy Draw Site RIGHT BRACHIAL Microbiology 07/23 2234 BLOOD: Blood Culture - RECD 07/23 2212 BLOOD: Blood Culture - RECD Diagnostic Imaging: Viewed by Me: Radiology Read. Discussed w/RAD: Radiology Read. CXR Impression: r middle and lower lobe opacity... full report below. Initial ED EKG: normal axis, normal intervals, normal p-waves, normal QRS complex, sinus tach Repeat EKG: changed (diffuse st dep,sinus tach) Comments: PATIENT: MILLY LLOYD PRESENT AGE: 89 PATIENT ACCOUNT NO: [id number] : [birth year] LOCATION: [facility] ORDERING PHYSICIAN: MELINDA PEREZ MD SERVICE DATE: 07/23/16 EXAM TYPE: RAD - XRY-PORTABLE CHEST XRAY EXAMINATION: XR PORTABLE CHEST CLINICAL INFORMATION: Hypoxia COMPARISON: Multiple priors, most recently 07/16/2016 TECHNIQUE: Portable AP view of the chest was obtained. FINDINGS: Cardiac leads overlie the chest, somewhat limiting the evaluation. The lungs are well expanded. There is a small to moderate left pleural effusion with fluid tracking along the lateral wall of the left hemithorax with associated basilar airspace opacity. This is similar to previous. Persistent patchy right basilar and midlung opacity. No pneumothorax. The cardiomediastinal silhouette is unchanged, with a calcified aorta. IMPRESSION: Similar appearance to prior. Small to moderate left pleural effusion with fluid tracking along the lateral chest wall. Associated airspace opacity. Persistent right mid to lower lung hazy opacity. DICTATED BY: KOSTA LUCIANO MD DATE/TIME DICTATED:07/23/162213 HIGH SCHOOL SCIENCE TUTOR:CARLOS DATE/TIME TRANSCRIBED:07/23/162213 CONFIDENTIAL, DO NOT COPY WITHOUT APPROPRIATE AUTHORIZATION. <Electronically signed in Other Vendor System> SIGNED BY: KOSTA LUCIANO MD 07/23 Departure Departure Disposition: STILL A PATIENT Condition: Stable Clinical Impression Primary Impression: Aspiration pneumonia Secondary Impressions: Abnormal EKG, Sepsis Referrals: ALVINA BRITO MD (PCP/Family) Departure Forms: Customer Survey General Discharge Information Admission Note Spoke With: SALOME POWERS MD Documentation of Exam: Documentation of any treatments & extenuating circumstances including Concerns Regarding Discharge (functional status, medication knowledge or non-compliance, living conditions, etc.) that warrant an admission rather than observation: Patient persistently hypoxic on high flow oxygen. Patient will require frequent suctioning continuous oxygen monitoring as well as IV antibiotics. Patient to be admitted to telemetry for continuous oxygen monitoring. Hospital team to consider admission to the ICU. Critical Care Note Critical Care Note Critical Care Time: 30-74 min Comments: I personally performed deep suction on the patient. Approximately 70-80 ml of copious secretions was extracted. His O2 sat improved to 96% on blow-by O2. A repeat EKG revealed sinus tachycardia with nonspecific ST segment depressions. Patient to be admitted to telemetry versus ICU for further management.
--- NOTE | 2016-07-23 21:48 | NUR ---
PT BIBA FROM [facility] WHERE HE HAD BEEN FOR DYSPHAGIA. STAFF AT [facility] ATTEMPTED TO GIVE HIM 30MLS OF WATER AND PT ASPIRATED. PT ARRIVES TO ED ON NONREBREATHER, O2 SAT 77%, SUCTIONED UPON ARRIVAL AND O2 SAT YVONNE TO 93%. RESP AND DR. PEREZ AT BEDSIDE UPON ARRIVAL. PT ABLE TO RESPOND WITH 1 WORD ANSWERS AT THIS TIME
--- NOTE | 2016-07-23 21:51 | NUR ---
RESP AT BEDSIDE GIVING BREATHING TREATMENT
--- NOTE | 2016-07-23 22:19 | RADIOLOGY REPORT ---
EXAMINATION: XR PORTABLE CHEST CLINICAL INFORMATION: Hypoxia COMPARISON: Multiple priors, most recently 07/16/2016 TECHNIQUE: Portable AP view of the chest was obtained. FINDINGS: Cardiac leads overlie the chest, somewhat limiting the evaluation. The lungs are well expanded. There is a small to moderate left pleural effusion with fluid tracking along the lateral wall of the left hemithorax with associated basilar airspace opacity. This is similar to previous. Persistent patchy right basilar and midlung opacity. No pneumothorax. The cardiomediastinal silhouette is unchanged, with a calcified aorta. IMPRESSION: Similar appearance to prior. Small to moderate left pleural effusion with fluid tracking along the lateral chest wall. Associated airspace opacity. Persistent right mid to lower lung hazy opacity.
--- NOTE | 2016-07-23 22:21 | NUR ---
DAUGHTER CHRISTOPHER LLOYD CALLED, LEFT NUMBER [phone]
[2016-07-23 23:26] LABS: ABSOLUTE BASOPHIL COUNT 0 /CUMM (0.0-0.2); ABSOLUTE EOSINOPHIL COUNT 0.1 /CUMM (0.0-0.7); ABSOLUTE GRANULOCYTE CT 20.7 /CUMM (1.4-6.5); ABSOLUTE LYMPH COUNT 0.7 /CUMM (1.2-3.4); ABSOLUTE MONOCYTE COUNT 0.6 /CUMM (0.10-0.60); BASOPHIL % 0.1 % (0.0-2.0); EOSINOPHIL % 0.7 % (0-5); GRANULOCYTE % 93.3 % (42.2-75.2); HEMATOCRIT 32.4 % (42-52); MEAN CORPUSCULAR HGB 29.5 PG (27.0-31.0); MEAN CORPUSCULAR VOLUME 92.3 FL (80.0-94.0); MEAN PLATELET VOLUME 10.7 FL (7.4-10.4); PLATELET COUNT 358 /CUMM (130-400); RBC DISTRIBUTION WIDTH 14.2 % (11.5-14.5); RED BLOOD CELL CT 3.51 /CUMM (4.70-6.10); WHITE BLOOD CELL COUNT 22.2 /CUMM (4.8-10.8)
[2016-07-23] MEDS ORDERED: ACIDOPHILUS1 EACH PEG (23:26)
--- NOTE | 2016-07-23 23:29 | NUR ---
PT INTERMITTENTLY SUCTIONING SELF. PT A/O X4. RESP UNLABORED. ST ON THE MONITOR. SKIN WARM AND DRY. WILL CONTINUE TO MONITOR.
--- NOTE | 2016-07-23 23:30 | NUR ---
UNABLE TO GET IV ACCESS. PT HAS IV FROM EMS. ATTEMPTED BY SEVERAL NURSES. PT REMAINS WITH IV FROM EMS
--- NOTE | 2016-07-23 23:35 | NUR ---
PT C/O NAUSEA. PT MEDICATED WITH ZOFRAN PER ORDER.
[2016-07-23] MEDS ORDERED: Q-PAP325 M1 PEG (23:42)
[2016-07-23] MEDS ORDERED: ACEPHEN650 M1 PR (23:44)
[2016-07-23] MEDS ORDERED: MILK OF MA400 MG/52 PEG (23:45)
[2016-07-23] MEDS ORDERED: FLEET ENEMA133 ML RC (23:46)
[2016-07-23] MEDS ORDERED: GLUCERNA 1.2 C237 ML PEG (23:48)
[2016-07-23] MEDS ORDERED: BIOTENE473 ML PO (23:49)
--- NOTE | 2016-07-24 00:10 | History & Physical ---
RANDOLPH VALLEJO,[facility] 07/24/16 0009: General Information and HPI MD Statement: I have seen and personally examined MILLY GREENWOOD and documented this H&P. The patient is a 89 year old M who presented with a patient stated chief complaint of acute shortness of breath. Source of Information: patient, old records Exam Limitations: no limitations History of Present Illness: Mr. 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 Patient was recently discharged from [facility] on 07/16/2016 where he had instructions to avoid any by mouth intake. This afternoon the patient states that he was a good state of health however after drinking some water, he began to cough. It was also noted that the patient was cleared from speech therapist perspective that he could begin by mouth water intake. Patient states that he has continued to cough over the last few hours. Cough has been productive in nature. Patient denies any hemoptysis, however does state that he is producing extensive sputum. Patient denies any fever, chills, nausea, vomiting. Patient is a resident of [facility]. The patient was scheduled to come in to [facility] on 07/19 for thoracocentesis. Allergies/Medications Allergies: Coded Allergies: NO KNOWN ALLERGIES (07/15/16) Home Med list Acetaminophen (Q-Pap) 325 MG TABLET 2 TAB PEG Q4H PRN PAIN/TEMP>101 (Reported ) Acetaminophen (Acephen) 650 MG SUPP.RECT 1 SUPP DC Q4H PRN PAIN/TEMP>101 ( Reported) Insulin Glargine,Hum.rec.anlog (Lantus Solostar) 100 UNIT/ML (3 ML) INSULN.PEN 10 UNIT SC QHS DIABETES (Reported) Lactobacillus Acidophilus (Acidophilus) 1 EACH CAPSULE 1 CAP PEG BID PROBIOTIC (Reported) Magnesium Hydroxide (Milk Of Magnesia) 400 MG/5 ML ORAL.SUSP 30 ML PEG PRN CONSTIPATION (Reported) Metformin HCl 500 MG TABLET 1 TAB PEG BID DIABETES (Reported) Na Phos,M-B/Na Phos,Di-Ba (Fleet Enema) 19 GRAM-7 GRAM/118 ML ENEMA 1 E RC PRN CONSTIPATION (Reported) Nut.tx.gluc.intoler,Lac-Fr,Soy (Glucerna 1.2 Daniele) 237 ML LIQUID 70 ML PEG AD NUTRITIONAL SUPPLEMENT (Reported) Pioglitazone HCl 30 MG TABLET 1 TAB PEG DAILY DM (Reported) Saliva Substitute Combo No.9 (Biotene) 473 ML MOUTHWASH 15 ML PO 4XDAILY ORAL RINSE (Reported) Trimethobenzamide HCl (Tigan) 300 MG CAPSULE 1 TAB PO TIDPRN PRN NAUSEA Compliance With Home Meds: GOOD Past History Travel History Traveled to [place] past 21 day No Medical History Neurological: ?LOLLY GEHRIGS DISEASE W/ L VOCAL CORD PARALYSI EENT: NONE Cardiovascular: NONE Respiratory: NONE Gastrointestinal: G TUBE Hepatic: NONE Renal: NONE Musculoskeletal: osteoarthritis Psychiatric: NONE Endocrine: TYPE II DIABETIC Blood Disorders: NONE Cancer(s): prostate cancer PROGRAM MANAGEMENT INTERN/Reproductive: NONE History of MRSA: No History of VRE: Yes History of CDIFF: No Surgical History Surgical History: G TUBE Past Family/Social History Family History Relations & Conditions if any Relation not specified for: FH: COPD (chronic obstructive pulmonary disease) Psychosocial History Services at Home: Home Health Aide, Nursing Primary Language: Arabic Smoking Status: Former Smoker (Pipe smoker) ETOH Use: Former User Living Will? no Functional Ability ADLs Independent: dressing. Ambulation: walker IADLs Needs Assist: shopping, housework, finances, food prep, telephone, transportation, medication admin. Review of Systems Review of Systems Constitutional: Denies: chills, diaphoresis, fever, malaise, weakness. Cardiovascular: Denies: chest pain, edema, orthopena, palpitations. Respiratory: Reports: cough, short of breath, sputum production. Denies: hemoptysis, orthopnea. GI: Denies: abdominal pain, bloating, constipation, diarrhea, distention, bowel incontinence, nausea. Genitourinary: Denies: discharge, dysuria, frequency, hematuria. Musculoskeletal: Denies: back pain, gout, joint pain. Exam & Diagnostic Data Last 24 Hrs of Vital Signs/I&O Vital Signs Date Time Temp Pulse Resp B/P Pulse O2 O2 Flow FiO2 Ox Delivery Rate 07/24 0016 98 Non ReBreather 07/23 2349 97.1 124 20 138/71 97 Non ReBreather 07/23 2156 90 Non 100% ReBreather 07/23 2138 22 94 Non 100% ReBreather 07/23 2137 97.1 144 24 109/75 70 Aerosol 8L Mask Intake & Output 07/24 0800 07/24 0000 07/23 1600 Intake Total Output Total Balance Patient 77.111 kg Weight Physical Exam General Appearance Alert, Oriented X3, Cooperative, Mild Distress Neck No JVD Cardiovascular Normal S1, Normal S2, ?Systolic Murmur, Mitral Area. Lungs Bilatral Expiratory Rhonchi Abdomen Normal Bowel Sounds, Soft, No Tenderness, PEG tube in Place Neurological Normal Speech Extremities No Clubbing, No Cyanosis, No Edema Last 24 Hrs of Labs/Bradley: Laboratory Tests 07/24/16 0114: Lactic Acid 3.2 H 07/23/162234: CBC w Diff MAN DIFF ORDERED, RBC 3.51 L, MCV 92.3, MCH 29.5, RDW 14.2, MPV 10.7 H, Gran % 93.3 H, Lymphocytes % 3.1 L, Monocytes % 2.8, Eosinophils % 0.7, Basophils % 0.1, Absolute Granulocytes 20.7 H, Segmented Neutrophils 93 H, Band Neutrophils 4, Absolute Lymphocytes 0.7 L, Lymphocytes 1 L, Monocytes 1 L, Absolute Monocytes 0.6, Eosinophils 1, Absolute Eosinophils 0.1, Absolute Basophils 0, Platelet Estimate VERIFIED BY SMEAR, Normocytic RBCs VERIFIED, Normochromic RBCs VERIFIED, PUBS MCHC 32.0 L, Fld Total RBCs Counted 100 07/23/16 2213: Anion Gap 13, Estimated GFR > 60, BUN/Creatinine Ratio 27.8 H, Glucose 345 H, Calcium 9.0, Phosphorus 5.6 H, Magnesium 1.8, Total Bilirubin 0.5, AST 19, ALT 21, Alkaline Phosphatase 159 H, Troponin I 0.03, Total Protein 7.7, Albumin 3.2 L, Globulin 4.5 H, Albumin/Globulin Ratio 0.7 L 07/23/162149: pH 7.33 L, pCO2 42, pO2 59 L, HCO3 22, ABG O2 Sat (Measured) 88.0 L, P-50 ( Temp Corrected) YES, Carboxyhemoglobin 0.3 L, O2 Concentration % 6L, Temperature 97.1, O2 Delivery Method NEB TREATMENT, Phlebotomy Draw Site RIGHT BRACHIAL Microbiology 07/24 45 LOWER RESP: Respiratory Culture - ORD 02/04 0046 LOWER RESP: Gram Stain - ORD 07/23 2235 BLOOD: Blood Culture - RECD 07/23 2212 BLOOD: Blood Culture - RECD Diagnostic Data EKG Results Sinus Tachycardia ST depression noted. CXR Results SERVICE DATE: 07/23/16-2137 EXAM TYPE: RAD - XRY-PORTABLE CHEST XRAY EXAMINATION: XR PORTABLE CHEST CLINICAL INFORMATION: Hypoxia COMPARISON: Multiple priors, most recently 07/16/2016 TECHNIQUE: Portable AP view of the chest was obtained. FINDINGS: Cardiac leads overlie the chest, somewhat limiting the evaluation. The lungs are well expanded. There is a small to moderate left pleural effusion with fluid tracking along the lateral wall of the left hemithorax with associated basilar airspace opacity. This is similar to previous. Persistent patchy right basilar and midlung opacity. No pneumothorax. The cardiomediastinal silhouette is unchanged, with a calcified aorta. IMPRESSION: Similar appearance to prior. Small to moderate left pleural effusion with fluid tracking along the lateral chest wall. Associated airspace opacity. Persistent right mid to lower lung hazy opacity. DICTATED BY: MUSTAPHA VALLEJO,KOSTA Assessment/Plan Assessment: Mr. 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 Begin the patient on broad coverage antibiotics, Unasyn. Monitor white cell count in a.m. Continue to assess for any acute infection and or pathology. Patient seems to respond well to current treatment may consider discontinuing antibiotics if white cell trends down and patient is afebrile. Repeat chest x-ray in a.m. to rule out worsening pleural effusions. CBC in a.m. Continue frequent tracheal suctioning. Consider pulmonology consultation in a.m. Maintain aspiration precautions #Changes in EKG Patient did have some ST changes in lateral leads. This could be likely due to hypoxia owing to tachycardia which may cause changes including left bundle branch block. Trend troponins, initial troponins: 0.03. Patient's lactic acid was also elevated (3.2) continue to monitor this. Monitor BEP in a.m. #History of diabetes Upon admission the patient's sugar was elevated at 345 we'll begin the patient on a sliding scale. Accu-Cheks 3 times a day and at bedtime. Hemoglobin A1c in a.m. Consider endocrinology consult patient's sugars remain uncontrolled. #History of recurrent pleural effusions Patient did have a thoracocentesis on 07/19/2016. Chest x-ray in a.m. to assess worsening pleural effusion. If patient continues to develop recurrent effusions he may benefit from chest tube placement and drainage, subsequent pleurodesis if warranted. #DVT prophylaxis Lovenox #Diet Patient could should be made and kept nothing by mouth PEG tube feeding can be started tomorrow 10 AM. Eventual goal rate is to reach 60 mL per hour as per previous instructions. #Code Full code As Ranked By This Provider Problem List: 1. Diabetes mellitus 2. Dysphagia 3. Osteoarthritis 4. Leukocytosis 5. Pleural effusion 6. Aspiration pneumonia Core Measures/Miscellaneous Acute Coronary Syndrome ACS Diagnosis: No Cerebrovascular Accident CVA/TIA Diagnosis: No Congestive Heart Failure CHF Diagnosis: No Venous Thromboembolism VTE Risk Factors: Acute medical illness, Age > 40 VTE Prophylaxis Ordered Inpt: Pharm- Lovenox No Mech VTE prophylaxis d/t: No contraindications No VTE Pharm Prophylaxis d/t: No contraindications VTE Diagnosis: No VTE Type: NONE VTE Confirmed by (Test): NONE Severe Sepsis Severe Sepsis Present: No Septic Shock Septic Shock Present: No Miscellaneous Documentation Attending Case Discussed With: SALOME POWERS MD Primary Care Physician: ALVINA BRITO MD Patient sees these Specialists Dr Glass Level of Patient Care: Telemetry AIXA MONSIVAIS 07/24/16 0158: Resident Review Statement Resident Statement: examined this patient, discussed with university internship, agreed with university internship Other Findings: Patient is 89-year-old -[place] gentleman with past medical history significant for 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 Today in assisted he was given some water to drink and he choked and aspirated descending to relate to 70s and tracheal suction was done resulted in improvement of her saturation currently on nonrebreather saturating 95%. Denied fever, chills, chest pressure or pain, nausea, vomiting, headache, any urinary or bowel complaints. Vital signs on admission were temperature 97.1, pulse 144, respiratory rate 24, blood pressure 109/75 and he was saturating initially 70% but later on went up to 94% on nonrebreather. Labs significant for WBC count 22.2, hemoglobin 10.4, hematocrit 32.4 and platelet count 358, ABGs show pH 7.33/42/59/22, sodium 142, potassium 4.8, BUN/ creatinine 25 and creatinine 0.9initial set of troponin is negative Chest x-ray showed similar appearance to prior showing small to moderate left pleural effusion with fluid tracking along the lateral chest wall associated air space opacity persistent right mid to lower lung hazy opacity EKG showed ST depression in leads II, V5 and V6 with tachycardia On physical examination Alert and oriented 3 Not in acute distress Neck supple, head atraumatic Chest reduced air entry with basal Right Crepitations Heart tachycardia with no added sounds Abdomen soft with G-tube in place Extremities showed no peripheral edema Assessment and plan Patient is 89-year-old -[place] gentleman with history of prostate cancer, diabetes mellitus, motor neuron disease, vocal cord paralysis, history of aspiration pneumonias came to emergency room from nursing facility after witnessed aspiration resulted in hypoxia, shortness of breath and productive cough. Problem list 1. Aspiration pneumonitis in a patient with VOCAL cord paralysis 2. History of prostate cancer 3. History of type 2 diabetes mellitus 4. Exudative pleural effusion status post thoracentesis 5. Hypoxia requiring nonrebreather 6. Nonspecific ST depression most likely due to tachycardia and rate related ACS need to be ruled out We will admit patient on telemetry for Vital signs every shift Continuous telemetry monitoring and pulse ox TRC and nebulization to keep oxygen saturation more than 90% Aspiration precaution We'll keep him nothing by mouth we will repeat chest x-ray in a.m. and resume PEG tube feeding from tomorrow afternoon We'll start him on Unasyn for now and if he didn't develop any fever or new opacity in 48-72 hours we might discontinue antibiotic. Accu-Cheks and NovoLog sliding scale coverage We will repeat CBC and BEP in a.m. and did replete electrolytes as required We will trend troponins and EKG to rule out ACS Frequent tracheal suction and chest physical therapy Initial lactic acid is high. Will trend We will keep head end of bed elevated Pharmacological DVT prophylaxis Patient is full code SALOME POWERS 07/24/16 0351: Attending MD Review Statement Attending Statement Attending MD Statement: examined this patient, discuss w/resident/PA/IRRIGATION SYSTEM OPERATOR, agreed w/resident/PA/IRRIGATION SYSTEM OPERATOR, reviewed EMR data (avail), reviewed images, amended to note Attending Assessment/Plan: Cc : Acute Shortness of breath PMH: DM, ?Motoneuron disease, oropharyngeal dysphasia secondary to vocal cord paralysis on PEG tube feeding, osteoarthritis, history of prostate cancer S/P treatment Patient was admitted from July 15 to July 16, for aspiration pneumonia and worsening of shortness of breath. Earlier he was admitted for aspiration pneumonia with parapneumonic effusion S/P thoracentesis. He was discharged to [facility]CF. He completed antibiotics , underwent repeat thoracentesis (Jul 19, 320 mL of slightly turbid bloody, non-clotting fluid was aspirated) while in ECF and to his normal state of health till today. Patient had speech therapy today and was cleared for some water intake by mouth. When he drank some water, he became acutely hypoxic and SOB, coughing. EMS was called and patient was sent to ER. Deep suctioning was done in ER and patient was kept on NRB. Vitals: Afebrile, HR 120 to 140 at presentation, RR 24 to 30, blood pressure stable and but requiring NRB or Ventimask to saturate at 94%. On exam: A O 3, acute distress, complete sentences without SOB but desaturates while doing so. Thin built, neck supple, no lymphadenopathy, no JVD, mucosa moist, no focal neurological deficit. Patient needs support for walking. CVS: S1 -S2, RRR, systolic murmur in aortic area. RS: Decreased air entry bilaterally, no obvious wheezing or crackles heard. Abdomen: PEG present, no evidence of inflammation or infection around, soft, NT, ND, bowel sounds present Labs: WBC 22.2 with granulocytes 93% otherwise no remarkable changes in his labs compared to labs done earlier hospitalization. EKG: Sinus tachycardia with rate related ST depression in lateral leads. CXR:Similar appearance to prior. Small to moderate left pleural effusion with fluid tracking along the lateral chest wall. Associated airspace opacity. Persistent right mid to lower lung hazy opacity. A and P #1 acute hypoxic respiratory failure: Secondary to aspiration event, mucous plugging cannot be ruled out , patient has poor cough, deep suctioning was done in ER, patient requiring high oxygen levels at this time. X-ray does not have new infiltrates , leukocytosis can be reactive but given the high likelihood of developing aspiration pneumonia continue IV Unasyn , repeat chest x-ray PA lateral view in a.m. pulmonary toilet , chest PT , nebulization with albuterol , continue oxygen support. Incentive spirometry, nothing by mouth, hold PEG feeding tonight, resume PEG feeding from tomorrow #2 history of pleural effusion: Recent thoracentesis done on July 19, 320 mL of slightly turbid bloody, non-clotting fluid was aspirated, repeat chest x-ray PA lateral tomorrow for reevaluation. #3 sinus tachycardia : Probably secondary to severe hypoxia, monitor on telemetry floor, repeat EKG, troponin. Conservative treatment for now. #4 DM: hold oral hypoglycemic, continue basal and sliding scale insulin. # #5 DVT prophylaxis with Lovenox, adequate pain control.
--- NOTE | 2016-07-24 00:27 | NUR ---
PT REPORTS BREATHING IMPROVING AFTER BREATHING TREATMENT.
--- NOTE | 2016-07-24 01:00 | NUR ---
HOUSESTAFF AT BEDSIDE.
--- NOTE | 2016-07-24 01:34 | NUR ---
ATTEMPTED TO PUT PT ON NC. PT O2 SAT TO 85%. PT PUT IN ON VENTI MASK 40% PT O2 SAT 95%
[2016-07-24 02:00] VITALS: BP 98/70
--- NOTE | 2016-07-24 02:08 | NUR ---
CRITICAL TEST RESULTS [id number] MILLY LLOYD 89 M TESTS AND RESULTS: LACTIC Results received and read back by: LEONARDO CARTY Results received date and time: 07/24/16 0209 The following provider was notified of the results, and read the results back: 3.2 Notified date and time: 07/24/16 at 0200
--- NOTE | 2016-07-24 03:50 | NUR ---
PT ARRIVED TO FLOOR 0310. PT WAS ON VENTI MASK AT 40% AND HAD MG SULFATE RUNNING. PT TRANSFERRED TO BED, STATED HE FELT NAUSEOUS AND HAD MUCOUS IN HIS THROAT. PT GIVEN SUCTION REMOVING APPX 20 ML MUCOUS. WITHOUT MASK PT SATTING 80%, RR 40. VENTI MASK PUT BACK ON. RESPIRATORY PAGED. RESPIRATORY ARRIVED AND PLACED PATIENT ON PARTIAL REBREATHER. PT NOW SATTING 100%. HR 111, BP 98/70, RR 32. BLOOD SUGAR 394. MD AWARE. PT REPORTS NO PAIN. PT A&0 X 3, NSR WITH TACHYHCARDIA ON MONITOR, LUNGS VERY RHONCHOROUS, G-TUBE INTACT, URINAL AT BEDSIDE, NO EDEMA. SMALL AREAS OF OPEN AREAS TO RIGHT CHOPRA. PT RESTING COMFORTABLY WITH CALL CRAIN AND SUCTION AT SIDE. WILL CONTINUE TO MONITOR.
--- NOTE | 2016-07-24 03:54 | Admission Certification ---
Admission Certification Certification Statement - As attending physician, I certify that at the time of - admission, based on clinical presentation, severity of - symptoms, need for further diagnostic testing and - therapeutic interventions, and risk of adverse outcomes - without in-hospital treatment, in my clinical assessment, - this patient requires an acute hospital stay for a minimum - of two nights or longer. I have also considered psychsocial - factors such as support system, advanced age, financial - issues, cognitive issues, and failed out-patient treatments, - past re-admission history, safety of patient, and lack of - compliance as applicable. Specific rationale supporting this admission is: Acute hypoxic respiratory failure
[2016-07-24 06:28] LABS: ABSOLUTE BASOPHIL COUNT 0 /CUMM (0.0-0.2); ABSOLUTE EOSINOPHIL COUNT 0 /CUMM (0.0-0.7); ABSOLUTE GRANULOCYTE CT 15.6 /CUMM (1.4-6.5); ABSOLUTE LYMPH COUNT 0.3 /CUMM (1.2-3.4); ABSOLUTE MONOCYTE COUNT 0.4 /CUMM (0.10-0.60); BASOPHIL % 0.2 % (0.0-2.0); EOSINOPHIL % 0 % (0-5); GRANULOCYTE % 95.3 % (42.2-75.2); HEMATOCRIT 30.9 % (42-52); MEAN CORPUSCULAR HGB 29.9 PG (27.0-31.0); MEAN CORPUSCULAR VOLUME 90.8 FL (80.0-94.0); MEAN PLATELET VOLUME 9.8 FL (7.4-10.4); PLATELET COUNT 330 /CUMM (130-400); RBC DISTRIBUTION WIDTH 14.1 % (11.5-14.5); RED BLOOD CELL CT 3.41 /CUMM (4.70-6.10); WHITE BLOOD CELL COUNT 16.4 /CUMM (4.8-10.8)
[2016-07-24 07:30] VITALS: BP 130/60
--- NOTE | 2016-07-24 11:10 | PN- Att Addend ---
Attending Addendum Attending Brief Note Patient seen and examined. Plan of care discussed with the medical team and the patient. Available lab work and radiology test reports were reviewed. Patient is currently on 100% nonrebreather. He denies any difficulty breathing and appears comfortable. Denies any chest pain fever or chills. Vital Signs Date Time Temp Pulse Resp B/P Pulse O2 O2 Flow FiO2 Ox Delivery Rate 07/24 08 96 Non 100% ReBreather 07/24 0730 97.7 103 20 130/60 92 07/24 0314 91 Venti Mask 40% 07/24 0233 97.3 115 20 145/69 95 Venti Mask 40% 07/24 0200 99.5 115 30 98/70 07/24 0138 97.3 116 20 130/79 95 Venti Mask 40% 07/24 0016 98 Non ReBreather 07/23 2349 97.1 124 20 138/71 97 Non ReBreather 07/23 2156 90 Non 100% ReBreather 07/23 2139 22 94 Non 100% ReBreather 07/23 2138 97.1 144 24 109/75 70 Aerosol 8L Mask Intake & Output 07/24 1600 07/24 0800 07/24 0000 Intake Total 220 Output Total 150 Balance 70 Intake, IV 220 Output, Urine 150 Patient 145 lb 170 lb Weight Exam: General: Patient awake slightly lethargic and partially oriented without any distress CVS: S1 plus S2 without any murmur or gallops Chest: Few scattered crepitation without any wheeze. There is no respiratory distress. Abdomen: Soft nontender, bowel sound present, no guarding or rebound HOOK UP DRIVER: Awake alert oriented without any focal neuro deficit and follows command appropriately Extremities: No edema; no clubbing or cyanosis noted Laboratory Tests 07/24 07/24 07/24 0611 0611 0611 Chemistry Sodium (137 - 145 mmol/L) 145 Potassium (3.5 - 5.1 mmol/L) 5.5 H Chloride (98 - 107 mmol/L) 107 Carbon Dioxide (22 - 30 mmol/L) 26 Anion Gap (5 - 16) 11 BUN (9 - 20 mg/dL) 33 H Creatinine (0.7 - 1.2 mg/dL) 1.0 Estimated GFR (>60 ml/min) > 60 BUN/Creatinine Ratio (7 - 25 %) 33.0 H Lactic Acid (0.7 - 2.1 mmol/L) Cancelled 3.5 H Troponin I (<0.11 ng/ml) 1.80 *H Hematology CBC w Diff MAN DIFF ORDERED WBC (4.8 - 10.8 /CUMM) 16.4 H RBC (4.70 - 6.10 /CUMM) 3.41 L Hgb (14.0 - 18.0 G/DL) 10.2 L Hct (42 - 52 %) 30.9 L MCV (80.0 - 94.0 FL) 90.8 MCH (27.0 - 31.0 PG) 29.9 RDW (11.5 - 14.5 %) 14.1 Plt Count (130 - 400 /CUMM) 330 MPV (7.4 - 10.4 FL) 9.8 Gran % (42.2 - 75.2 %) 95.3 H Lymphocytes % (20.5 - 51.1 %) 1.8 L Monocytes % (1.7 - 9.3 %) 2.7 Eosinophils % (0 - 5 %) 0 Basophils % (0.0 - 2.0 %) 0.2 Absolute Granulocytes (1.4 - 6.5 /CUMM) 15.6 H Segmented Neutrophils (42.2 - 75.2 %) 87 H Band Neutrophils (0.0 - 5.0 %) 6 H Absolute Lymphocytes (1.2 - 3.4 /CUMM) 0.3 L Lymphocytes (20.5 - 51.1 %) 4 L Monocytes (1.7 - 9.3 %) 2 Absolute Monocytes (0.10 - 0.60 /CUMM) 0.4 Absolute Eosinophils (0.0 - 0.7 /CUMM) 0 Absolute Basophils (0.0 - 0.2 /CUMM) 0 Metamyelocytes (0.0 - 1.0 %) 1 Platelet Estimate (ADEQUATE) ADEQUATE Anisocytosis 1+ PUBS MCHC (33.0 - 37.0 G/DL) 33.0 Other Body Source Fld Total RBCs Counted (%) 100 07/24 07/24 07/23 0114 0057 2235 Chemistry Lactic Acid (0.7 - 2.1 mmol/L) 3.2 H Cancelled Hematology CBC w Diff MAN DIFF ORDERED WBC (4.8 - 10.8 /CUMM) 22.2 H RBC (4.70 - 6.10 /CUMM) 3.51 L Hgb (14.0 - 18.0 G/DL) 10.4 L Hct (42 - 52 %) 32.4 L MCV (80.0 - 94.0 FL) 92.3 MCH (27.0 - 31.0 PG) 29.5 RDW (11.5 - 14.5 %) 14.2 Plt Count (130 - 400 /CUMM) 358 MPV (7.4 - 10.4 FL) 10.7 H Gran % (42.2 - 75.2 %) 93.3 H Lymphocytes % (20.5 - 51.1 %) 3.1 L Monocytes % (1.7 - 9.3 %) 2.8 Eosinophils % (0 - 5 %) 0.7 Basophils % (0.0 - 2.0 %) 0.1 Absolute Granulocytes (1.4 - 6.5 /CUMM) 20.7 H Segmented Neutrophils (42.2 - 75.2 %) 93 H Band Neutrophils (0.0 - 5.0 %) 4 Absolute Lymphocytes (1.2 - 3.4 /CUMM) 0.7 L Lymphocytes (20.5 - 51.1 %) 1 L Monocytes (1.7 - 9.3 %) 1 L Absolute Monocytes (0.10 - 0.60 /CUMM) 0.6 Eosinophils (0 - 5.0 %) 1 Absolute Eosinophils (0.0 - 0.7 /CUMM) 0.1 Absolute Basophils (0.0 - 0.2 /CUMM) 0 Platelet Estimate (ADEQUATE) VERIFIED BY SMEAR Normocytic RBCs VERIFIED Normochromic RBCs VERIFIED PUBS MCHC (33.0 - 37.0 G/DL) 32.0 L Other Body Source Fld Total RBCs Counted (%) 100 07/23 07/23 2213 2150 Blood Gas pH (7.35 - 7.45 PH) 7.33 L pCO2 (35 - 45 TORR) 42 pO2 (80 - 100 TORR) 59 L HCO3 (21 - 28 MEQ/L) 22 ABG O2 Sat (Measured) (>96.0 %) 88.0 L P-50 (Temp Corrected) YES Carboxyhemoglobin (1.5 - 5.0 %) 0.3 L O2 Concentration % 6L Temperature (97.0 - 100.0 FARH) 97.1 O2 Delivery Method NEB TREATMENT Chemistry Sodium (137 - 145 mmol/L) 142 Potassium (3.5 - 5.1 mmol/L) 4.8 Chloride (98 - 107 mmol/L) 104 Carbon Dioxide (22 - 30 mmol/L) 25 Anion Gap (5 - 16) 13 BUN (9 - 20 mg/dL) 25 H Creatinine (0.7 - 1.2 mg/dL) 0.9 Estimated GFR (>60 ml/min) > 60 BUN/Creatinine Ratio (7 - 25 %) 27.8 H Glucose (65 - 99 mg/dL) 345 H Calcium (8.4 - 10.2 mg/dL) 9.0 Phosphorus (2.5 - 4.5 mg/dL) 5.6 H Magnesium (1.6 - 2.3 mg/dL) 1.8 Total Bilirubin (0.2 - 1.3 mg/dL) 0.5 AST (17 - 59 U/L) 19 ALT (21 - 72 U/L) 21 Alkaline Phosphatase (< 127 U/L) 159 H Troponin I (<0.11 ng/ml) 0.03 Total Protein (6.3 - 8.2 g/dL) 7.7 Albumin (3.5 - 5.0 g/dL) 3.2 L Globulin (1.9 - 4.2 gm/dL) 4.5 H Albumin/Globulin Ratio (1.1 - 2.2 %) 0.7 L Miscellaneous Phlebotomy Draw Site RIGHT BRACHIAL Microbiology Date/Time Procedure - Status Source Growth 07/24 0046 Respiratory Culture - ORD LOWER RESP 07/24 0046 Gram Stain - ORD LOWER RESP 07/23 2234 Blood Culture - RECD BLOOD 07/23 2212 Blood Culture - RECD BLOOD Chest x-ray Similar appearance to prior. Small to moderate left pleural effusion with fluid tracking along the lateral chest wall. Associated airspace opacity. Persistent right mid to lower lung hazy opacity. Assessment and problem list * Acute hypoxemic respiratory failure * Aspiration pneumonia * Hyperkalemia * DM 2 * Vocal cord paralysis Plan * Taper oxygen as tolerated * Repeat potassium level today * Continue antibiotics * Pulmonary consult * Keep nothing by mouth * Aspiration precautions * Continue feeding through PEG tube * Swallow evaluation
--- NOTE | 2016-07-24 13:01 | Cons- Pulmonary ---
General Information and HPI Consulting Request Date of Consult: 07/24/16 Requested By: med team History of Present Illness: Mr. 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 Patient was recently discharged from [facility] on 07/16/2016 where he had instructions to avoid any by mouth intake. The patient was also scheduled to come in to [facility] on 07/19 for thoracocentesis. This afternoon the patient states that he was a good state of health however after drinking some water, he began to cough. He was also noted that the patient was cleared from speech therapist perspective that he could begin by mouth water intake. Patient states that he has continued to cough over the last few hours. Cough has been productive in nature. Patient denies any hemoptysis, however does state that he is producing extensive sputum. Patient denies any fever, chills, nausea, vomiting. Patient is a resident of [facility]. Review of Systems Constitutional: Denies: chills, diaphoresis, fever, malaise, weakness. Cardiovascular: Denies: chest pain, edema, orthopena, palpitations. Respiratory: Reports: cough, short of breath, sputum production. Denies: hemoptysis, orthopnea. GI: Denies: abdominal pain, bloating, constipation, diarrhea, distention, bowel incontinence, nausea. Genitourinary: Denies: discharge, dysuria, frequency, hematuria. Musculoskeletal: Denies: back pain, gout, joint pain. Allergies/Medications Allergies: Coded Allergies: NO KNOWN ALLERGIES (07/15/16) Home Med List: Acetaminophen (Q-Pap) 325 MG TABLET 2 TAB PEG Q4H PRN PAIN/TEMP>101 (Reported ) Acetaminophen (Acephen) 650 MG SUPP.RECT 1 SUPP CO Q4H PRN PAIN/TEMP>101 ( Reported) Insulin Glargine,Hum.rec.anlog (Lantus Solostar) 100 UNIT/ML (3 ML) INSULN.PEN 10 UNIT SC QHS DIABETES (Reported) Lactobacillus Acidophilus (Acidophilus) 1 EACH CAPSULE 1 CAP PEG BID PROBIOTIC (Reported) Magnesium Hydroxide (Milk Of Magnesia) 400 MG/5 ML ORAL.SUSP 30 ML PEG PRN CONSTIPATION (Reported) Metformin HCl 500 MG TABLET 1 TAB PEG BID DIABETES (Reported) Na Phos,M-B/Na Phos,Di-Ba (Fleet Enema) 19 GRAM-7 GRAM/118 ML ENEMA 1 E RC PRN CONSTIPATION (Reported) Nut.tx.gluc.intoler,Lac-Fr,Soy (Glucerna 1.2 Daniele) 237 ML LIQUID 70 ML PEG AD NUTRITIONAL SUPPLEMENT (Reported) Pioglitazone HCl 30 MG TABLET 1 TAB PEG DAILY DM (Reported) Saliva Substitute Combo No.9 (Biotene) 473 ML MOUTHWASH 15 ML PO 4XDAILY ORAL RINSE (Reported) Trimethobenzamide HCl (Tigan) 300 MG CAPSULE 1 TAB PO TIDPRN PRN NAUSEA Review of Systems Review of Systems Constitutional: Reports: see HPI. 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 Extended Care Facility Services at Home: Home Health Aide, Nursing Primary Language: Bruneian Smoking Status: Former Smoker (Pipe smoker) ETOH Use: Former User Living Will? no Functional Ability ADLs Independent: dressing. Ambulation: walker IADLs Needs Assist: shopping, housework, finances, food prep, telephone, transportation, medication admin. Exam & Diagnostic Data Last 24 Hrs of Vital Signs/I&O Vital Signs Date Time Temp Pulse Resp B/P Pulse O2 O2 Flow FiO2 Ox Delivery Rate 07/24 0800 96 Non 100% ReBreather 07/24 0730 97.7 103 20 130/60 92 07/24 0314 91 Venti Mask 40% 07/24 0233 97.3 115 20 145/69 95 Venti Mask 40% 07/24 0200 99.5 115 30 98/70 07/24 0138 97.3 116 20 130/79 95 Venti Mask 40% 07/24 0016 98 Non ReBreather 07/23 2349 97.1 124 20 138/71 97 Non ReBreather 07/23 2156 90 Non 100% ReBreather 07/23 2138 22 94 Non 100% ReBreather 07/23 2137 97.1 144 24 109/75 70 Aerosol 8L Mask Intake & Output 07/24 1600 07/24 0800 07/24 0000 Intake Total 220 Output Total 150 Balance 70 Intake, IV 220 Output, Urine 150 Patient 145 lb 170 lb Weight Last 48 Hrs of Labs/Bradley: Laboratory Tests 07/24/16 0611: Lactic Acid Cancelled 07/24/16 0611: Lactic Acid 3.5 H 07/24/16 0611: Anion Gap 11, Estimated GFR > 60, BUN/Creatinine Ratio 33.0 H, Troponin I 1.80 *H, CBC w Diff MAN DIFF ORDERED, RBC 3.41 L, MCV 90.8, MCH 29.9, RDW 14.1, MPV 9.8, Gran % 95.3 H, Lymphocytes % 1.8 L, Monocytes % 2.7, Eosinophils % 0, Basophils % 0.2, Absolute Granulocytes 15.6 H, Segmented Neutrophils 87 H, Band Neutrophils 6 H, Absolute Lymphocytes 0.3 L, Lymphocytes 4 L, Monocytes 2, Absolute Monocytes 0.4, Absolute Eosinophils 0, Absolute Basophils 0, Metamyelocytes 1, Platelet Estimate ADEQUATE, Anisocytosis 1+, PUBS MCHC 33.0, Fld Total RBCs Counted 100 07/24/16 0114: Lactic Acid 3.2 H 07/24/16 0057: Lactic Acid Cancelled 07/23/165: CBC w Diff MAN DIFF ORDERED, RBC 3.51 L, MCV 92.3, MCH 29.5, RDW 14.2, MPV 10.7 H, Gran % 93.3 H, Lymphocytes % 3.1 L, Monocytes % 2.8, Eosinophils % 0.7, Basophils % 0.1, Absolute Granulocytes 20.7 H, Segmented Neutrophils 93 H, Band Neutrophils 4, Absolute Lymphocytes 0.7 L, Lymphocytes 1 L, Monocytes 1 L, Absolute Monocytes 0.6, Eosinophils 1, Absolute Eosinophils 0.1, Absolute Basophils 0, Platelet Estimate VERIFIED BY SMEAR, Normocytic RBCs VERIFIED, Normochromic RBCs VERIFIED, PUBS MCHC 32.0 L, Fld Total RBCs Counted 100 07/23/16 2213: Anion Gap 13, Estimated GFR > 60, BUN/Creatinine Ratio 27.8 H, Glucose 345 H, Calcium 9.0, Phosphorus 5.6 H, Magnesium 1.8, Total Bilirubin 0.5, AST 19, ALT 21, Alkaline Phosphatase 159 H, Troponin I 0.03, Total Protein 7.7, Albumin 3.2 L, Globulin 4.5 H, Albumin/Globulin Ratio 0.7 L 07/23/162149: pH 7.33 L, pCO2 42, pO2 59 L, HCO3 22, ABG O2 Sat (Measured) 88.0 L, P-50 ( Temp Corrected) YES, Carboxyhemoglobin 0.3 L, O2 Concentration % 6L, Temperature 97.1, O2 Delivery Method NEB TREATMENT, Phlebotomy Draw Site RIGHT BRACHIAL Assessment/Plan Impression/Plan: Physical Exam General Appearance Alert, Oriented X3, Cooperative, Mild Distress Neck No JVD Cardiovascular Normal S1, Normal S2, ?Systolic Murmur, Mitral Area. Lungs Bilatral Expiratory Rhonchi Abdomen Normal Bowel Sounds, Soft, No Tenderness, PEG tube in Place Neurological Normal Speech Extremities No Clubbing, No Cyanosis, No Edema SIGNIFICANT DATA Chest x-ray showed small to moderate left pleural effusion with associated airspace opacity. Recent pleural effusion for his complex drainage has been done few days ago. Patient has similar effusion now. His effusion did reveal that it was a grossly transudative fluid with high LDH with normal glucose. Cell count and differential indicated that most of them were polymorphs and 42% lymphocytes body fluid culture was negative with no organisms. BUN/creatinine appears normal. GFR is low for his age INR was 1.23 before. Previous blood gases and blood gas today did not reveal any significant hypercarbia. IMPRESSION This is an elderly gentleman with complicated left pleural effusion with recent tap suggestive of grossly exudative fluid which was negative for malignancy and no significant active signs of infection, however his pleural fluid analysis did reveal. Elevated levels of redness, and DM and Bar but not higher than left, suspicious for malignancy with previous AFB culture negative from the pleural fluid so far with no growth, final culture pending, now with * Hypoxemic respiratory failure with Recurrent aspiration pneumonitis in a gentleman with oropharyngeal dysphasia secondary to vocal cord paralysis on PEG tube feeding. * Ongoing aspiration of his oral secretions with recurrent infection. * [place] diseaseby history * History of prostate cancer with no active malignancy. * Complicated left pleural effusion with exudative pleural effusion which appears to be stable. No evidence suggestive of malignancy or active infection or tuberculosis at this present time. * Hypoxemia requiring increasing oxygen oxygen suggestive of aspiration pneumonitis. RECOMMENDATION * Keep the head of bed elevated. * Continue antibiotics for now. * Order QuantiFERON gold test. * Aggressive pulmonary toilet. * Use DuoNeb 3 times a day * Watch his electrolytes. * Continue tube feeding. * Repeated chest x-ray in 48 hours and if his effusion were to get worse. He probably would require pigtail catheter to drain his fluid off. Consult Acknowledgment - Thank you for your consult request.
--- NOTE | 2016-07-24 15:21 | Event Note ---
Event Note Event Note: Patient serial troponins were elevated, 1.08,2.65. Patient is asymptomatic, having no any chest pain, complaining of difficulty in breathing, which was improved after deep tracheal suction. Discussed with Dr. Tinsley over the phone. According to him. We will start patient on aspirin, clopidogrel, heparin drip. I did a rectal examination and stool for occult blood was negative, after that we started patient on IV heparin drip. Advised to watch for the bleeding and advised to watch for the signs of chest pain.
--- NOTE | 2016-07-24 15:50 | NUR ---
PATIENT TAPERED OFF NRB MASK TO NC AT 4L. SATURATION AT THIS TIME 97%. NO SOB. TRC WITH RESP THERAPIST. TROPONIN 2.65. ASYMPTOMATIC. PRODUCTION ASSEMBLER GUERO AWARE. WILL CONTINUE TO FOLLOW PLAN OF CARE.
[2016-07-24 16:20] VITALS: BP 100/70
--- NOTE | 2016-07-24 19:12 | Cons- Cardiology ---
General Information and HPI Consulting Request Date of Consult: 07/24/16 Requested By: SALOME POWERS MD History of Present Illness: Mr. Greenwood is an 89 year old male with history of diabetes and vocal cord paralysis with oropharyngeal dysphagia. He recently underwent a thoracentesis. The patient presented to [facility] for evaluation of a cough along with shortness of breath after drinking water. Speech therapy did think that he could drink. Yesterday this patient also noted mild and non-radiating chest discomfort which has resolved. Cardiac enzymes have been positive however and are trending up. His cough is reported to be productive and he does have an elevated WBC count. No fever or chills. The patient was tachycardic upon admission. Allergies/Medications Allergies: Coded Allergies: NO KNOWN ALLERGIES (07/15/16) Home Med List: Acetaminophen (Q-Pap) 325 MG TABLET 2 TAB PEG Q4H PRN PAIN/TEMP>101 (Reported ) Acetaminophen (Acephen) 650 MG SUPP.RECT 1 SUPP TN Q4H PRN PAIN/TEMP>101 ( Reported) Insulin Glargine,Hum.rec.anlog (Lantus Solostar) 100 UNIT/ML (3 ML) INSULN.PEN 10 UNIT SC QHS DIABETES (Reported) Lactobacillus Acidophilus (Acidophilus) 1 EACH CAPSULE 1 CAP PEG BID PROBIOTIC (Reported) Magnesium Hydroxide (Milk Of Magnesia) 400 MG/5 ML ORAL.SUSP 30 ML PEG PRN CONSTIPATION (Reported) Metformin HCl 500 MG TABLET 1 TAB PEG BID DIABETES (Reported) Na Phos,M-B/Na Phos,Di-Ba (Fleet Enema) 19 GRAM-7 GRAM/118 ML ENEMA 1 E RC PRN CONSTIPATION (Reported) Nut.tx.gluc.intoler,Lac-Fr,Soy (Glucerna 1.2 Daniele) 237 ML LIQUID 70 ML PEG AD NUTRITIONAL SUPPLEMENT (Reported) Pioglitazone HCl 30 MG TABLET 1 TAB PEG DAILY DM (Reported) Saliva Substitute Combo No.9 (Biotene) 473 ML MOUTHWASH 15 ML PO 4XDAILY ORAL RINSE (Reported) Trimethobenzamide HCl (Tigan) 300 MG CAPSULE 1 TAB PO TIDPRN PRN NAUSEA Review of Systems Review of Systems: speaks wei voce due to vocal cord paralysis Past History Travel History Traveled to [place] past 21 day No Medical History Blood Transfusion Hx: No Neurological: ?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 Extended Care Facility Services at Home: Home Health Aide, Nursing Primary Language: Solomon Islander Smoking Status: Former Smoker (Pipe smoker) ETOH Use: Former User Living Will? no Functional Ability ADLs Independent: dressing. Ambulation: walker IADLs Needs Assist: shopping, housework, finances, food prep, telephone, transportation, medication admin. Exam & Diagnostic Data Vital Signs and I&O Vital Signs Date Time Temp Pulse Resp B/P Pulse O2 O2 Flow FiO2 Ox Delivery Rate 07/24 1620 98.4 86 16 100/70 94 Nasal 4.0L Cannula 07/24 1600 93 Nasal 4.0L Cannula 07/24 1335 Venti Mask 40% 07/24 0800 96 Non 100% ReBreather 07/24 0730 97.7 103 20 130/60 92 /04 0314 91 Venti Mask 40% 07/24 0233 97.3 115 20 145/69 95 Venti Mask 40% 07/24 0200 99.5 115 30 98/70 / 0138 97.3 116 20 130/79 95 Venti Mask 40% 07/24 0016 98 Non ReBreather 07/23 2349 97.1 124 20 138/71 97 Non ReBreather 07/23 2156 90 Non 100% ReBreather 07/239 22 94 Non 100% ReBreather 07/23 2137 97.1 144 24 109/75 70 Aerosol 8L Mask Intake & Output 07/24 1600 07/24 0800 07/24 0000 07/23 1600 07/23 0800 07/23 0000 Intake Total 800 220 Output Total 150 Balance 800 70 Intake, IV 800 220 Intake, Oral 0 Output, Urine 150 Patient 145 lb 170 lb Weight Physical Exam: General: WD/ WN male in NAD; alert and oriented x 3 HEENT: NC/AT, PERRL, EOMI, clear oropharynx Neck: no JVD, no carotid bruit Heart: RRR with 3/6 systolic murmur Lungs: decreased BS at left base, no crackles Abdomen: soft, NT, +ve bowel sounds with PEG Extremities: no edema Diagnostic Data EKG Results sinus tachycardia with LAFB and ST depresions in leads V4-V6 Assessment/Plan Assessment/Plan * This patient has evidence of a NSTEMI. He likely has significant coronary artery disease an in the setting of hypoxia and tachycardia has ruled in for an OK. It is less likely that he has a ruptured intracoronary plaque. 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 In consideration of his comorbidities we will try and treat this medically. * Begin aspirin 324mg daily, Plavix 75mg daily after a 300mg bolus and IV heparin. Begin NTG paste 1" Q 6 hours. Begin metoprolol 12.5mg BID and Atorvastatin 40mg daily. Begin an ACEI tomorrow if his BP will tolerate it. * O2 2L by NC * Follow cardiac enzymes until they peak. * Patient has a murmur of MR. Obtain and echocardiogram to evaluate this and his overall EF. * Continue antibiotic therapy Consult Acknowledgment - Thank you for your consult request.
[2016-07-24 23:06] LABS: PTT 59 SEC (25-37)
[2016-07-25 00:22] VITALS: BP 100/60
--- NOTE | 2016-07-25 02:10 | Event Note ---
Event Note Event Note: Notified by the nurse that the patient was desaturating after Attempting to sleep 10. He was currently on 4 L by nasal cannula saturating 75% . Her therapist was notified patient was placed on Ventimask 100% saturating at initially 82% and in subsequent 93%. Patient was stable and had no active complaints. An EKG and troponin, chest x-ray and an ABG have been ordered. A breathing treatment will also given. Resident been made aware Will continue to monitor. 7:45 AM Automatic Vulcanizing Operator Alvaro Chacko MD at bedside who helped assess patient. Recommends IV Lasix 40 mg. Positional Harris. 8:31 AM: Status changed from full code to DNR/DNI. Morphine 2 mg administered. Transfer patient to ICU
--- NOTE | 2016-07-25 02:50 | RADIOLOGY REPORT ---
EXAMINATION: XR PORTABLE CHEST CLINICAL INFORMATION: Desaturation COMPARISON: 06/09/2016 TECHNIQUE: Portable AP view of the chest was obtained. FINDINGS: Cardiac leads overlie the chest. The lungs are well expanded. Similar appearance of a small to moderate left pleural effusion with airspace opacity in the left mid to lower lung. Persistent hazy opacity of the right mid to lower lung, slightly increased from prior. No pneumothorax. The cardiomediastinal silhouette is unchanged, with a calcified aorta. IMPRESSION: Increased hazy opacity of the right mid to lower lung. Similar appearance of small to moderate left pleural effusion with airspace opacity.
--- NOTE | 2016-07-25 03:32 | NUR ---
PATIENT CALLED FOR HELP. "I CAN'T BREATH". VERY RHONCHOROUS WITH COPIOUS RESPIRATORY SECRETIONS. RESPIRATORY CALLED AND PATIENT DEEP SUCTIONED. OXYGEN SATURATION 75% ON 4L NC. 100% VM PLACED AND OXYGEN VERY SLOWLY CAME UP TO 100% HEART RATE AT THIS TIME IN THE 130'S. DR. DICKSON CALLED AND IN TO ASSESS PATIENT. EKG OBTAINED ORDERED AND SHOWED SINUS TACH. LABS DRAWN ORDERED. STAT PORTABLE CHEST XRAY DONE ORDERED AND SHOWS WORSENING OPACITIES. IV FLUIDS ON HOLD ORDERED BY DR. DICKSON. HEART RATE 130 BP 100/60, OXYGEN 93% ON 100% NRB. NO FURTHER INTERVENTIONS ORDERED AT THIS TIME. WILL CONTINUE TO MONITOR PATIENT.
[2016-07-25 08:00] VITALS: BP 90/60
--- NOTE | 2016-07-25 09:00 | NUR ---
AT 0500 PATIENT HEART RATE REMAINS IN THE 130'S. BP 90/DOPPLER. OXYGEN SAT 93% ON 60% PARTIAL REBREATHER. COPIOUS SECRETIONS. FREQUENT SUCTIONING REQUIRED. DR. DICKSON NOTIFIED AND HE AND WERE IN TO ASSESS PATIENT. ABG'S DRAWN. CONSULTED WITH DR. MCKEON REGARDING CXR AND ABG'S. NO TRANSFER TO ICU AT THAT TIME. AT 0600 PATIENT COMPLAINED OF NAUSEA. TUBE FEED STOPPED, RESIDUAL CHECKED 0 RESIDUAL. TUBE FEED OFF, DR. DICKSON NOTIFIED AND ZOFRAN GIVEN ORDERED. THIS RN REQUESTED PATIENT BE SEEN BY ATTENDING.
--- NOTE | 2016-07-25 10:04 | PN- Pulmonary ---
Subjective HPI/Critical Care Issues: I was asked to see this patient emergently again this morning. Patient apparently has been desaturating overnight with significant amount of posterior pharyngeal secretions and shortness of breath with hypoxemia. When I saw him he was significantly short of breath with bilateral rhonchi and crackles. Subsequently he was suctioned and was put on 100% nonrebreather. Patient was not complaining of any headaches but did have some chest discomfort. No nausea vomiting. History of feedings from his PEG tubes were held. Significant data reviewed Creatinine has gone up to 1 view and 35 potassium was elevated at 5.9 from 2.7 white count was 16.4 from yesterday this morning it was pending Patient's ABG did not reveal hypercarbia he was profoundly hypoxemic Cultures negative Chest x-ray showed left pleural effusion increased hazy opacity right mid lung to lower lung area. His troponin has been rising significantly went up to 2.6 now down to 0.9 this morning Objective Current Medications: Current Medications Sig/Lisa Start time Last Medication Dose Route Stop Time Status Admin Acetaminophen 650 MG Q6P PRN 07/24 0145 AC PO Acetaminophen/ 1 TAB Q6P PRN 07/24 0145 AC Hydrocodone Bitart PO Albuterol Sulfate 3 ML TID 07/24 1600 AC 07/25 INH 0749 Albuterol Sulfate 3 ML BID 07/24 1056 DC 07/24 INH 1057 Ampicillin Sodium/ 1,500 MG Q6 07/24 0600 AC 07/25 Sulbactam Sodium IV 0546 Sodium Chloride 100 ML Aspirin 81 MG DAILY 07/26 1000 CAN PO Aspirin 325 MG DAILY 07/25 1000 AC PO Aspirin 325 MG DAILY 07/24 1999 DC PO Aspirin 325 MG ONCE ONE 07/24 1515 DC 02 PO 07/24 1516 1817 Atorvastatin Calcium 40 MG 1700 07/25 1700 AC PO Clopidogrel Bisulfate 225 MG ONCE ONE 07/24 2000 DC / PO 07/24 2030 2114 Clopidogrel Bisulfate 75 MG DAILY 07/24 1509 AC 07/24 PO 1816 Enoxaparin Sodium 30 MG DAILY 07/24 1000 DC 07/24 SC 1004 Furosemide 40 MG ONCE ONE 07/25 0800 DC 07/25 IV 07/25 0801 0802 Heparin Sodium/ 25,000 UNIT Q24H 07/24 1530 AC 07/24 Dextrose IV 1548 Dextrose/Water 500 ML Hydromorphone HCl 0.5 MG Q4P PRN 07/24 0145 AC IV Insulin Human Regular 0 Q6 07/24 0154 AC 07/25 SC 0556 Ipratropium [place] 2.5 ML TID 07/24 1600 AC 07/25 INH 0748 Metoprolol Tartrate 12.5 MG BID 07/24 2200 AC 07/24 PO 2113 Morphine Sulfate 2 MG ONCE ONE 07/25 0830 DC 07/25 IV 07/25 0831 0821 Nitroglycerin 0.5 GM Q6 07/24 2001 AC TOP Ondansetron HCl 4 MG ONCE ONE 07/25 729 DC 07/25 IV 07/25 0731 0726 Patient Medication 1 UNIT ONE NR 07/24 2014 [place] Teaching ED 07/24 2030 Patient Medication 1 UNIT ONE NR 07/24 2014 [place] Teaching ED 07/24 2030 Potassium Chloride 10 MEQ Q1H 07/24 2100 DC 07/24 IV 07/24 2201 2354 Sodium Chloride 1,000 ML Q8H 07/25 0645 AC 07/25 IV 0708 Sodium Chloride 1,000 ML BOLUS ONE 07/25 0630 CAN IV 07/25 0829 Sodium Chloride 1,000 ML Q10H 07/24 0515 DC 07/24 IV 1817 Vital Signs & I&O Last 24 Hrs of Vitals and I&O: Vital Signs Date Time Temp Pulse Resp B/P Pulse O2 O2 Flow FiO2 Ox Delivery Rate 07/25 0917 97 Nasal 75% Cannula 07/25 08 90 Part 60% ReBreather 07/25 08 100.6 128 40 90/60 94 Nasal 75% Cannula 07/25 0752 91 Part 60% ReBreather 07/25 0258 94 Part 60% ReBreather 07/25 0209 96 Non 100% ReBreather 07/25 0022 98.1 110 18 100/60 95 Nasal Cannula 07/25 0000 95 Nasal 4.0L Cannula 07/24 2113 107 104/66 07/24 2007 94 Nasal 4.0L Cannula 07/24 1620 98.4 86 16 100/70 94 Nasal 4.0L Cannula 07/24 1600 93 Nasal 4.0L Cannula 07/24 1335 Venti Mask 40% Intake & Output 07/25 1600 07/25 0800 07/25 0000 Intake Total 975 220 Output Total 125 125 Balance 850 95 Intake, IV 500 Intake, Oral 0 Intake, Tube 350 140 Feeding Intake, Tube 125 80 Irrigant Number 1 Bowel Movements Output, Urine 125 125 Impression/Plan Impression/Plan Impression/Plan: Physical Exam, MAXIMUM TEMPERATURE 100.5 General Appearance Alert, Oriented X3, Cooperative, in significant respiratory distress with severe shortness of breath Oxygen saturation 91% on 100% nonrebreather Neck No JVD Cardiovascular Normal S1, Normal S2, ?Systolic Murmur, Mitral Area. Lungs Bilatral Expiratory Rhonchi, which is worse with bilateral crackles Abdomen Normal Bowel Sounds, Soft, No Tenderness, PEG tube in Place Neurological Normal Speech Extremities No Clubbing, No Cyanosis, No Edema SIGNIFICANT DATA IMPRESSION This is an elderly gentleman with complicated left pleural effusion with recent tap suggestive of grossly exudative fluid which was negative for malignancy and no significant active signs of infection, however his pleural fluid analysis did reveal. Elevated levels of redness, and DM and Bar but not higher than left, suspicious for malignancy with previous AFB culture negative from the pleural fluid so far with no growth, final culture pending, now with * Acute hypoxemic respiratory failure related to both combination of acute pulmonary edema and ongoing aspiration of his oral secretions in a gentleman with vocal cord paralysis with the recent IA. His physical exam suggest that he does have a loud systolic murmur suggestive of probable new onset mitral regurgitation with his ongoing IA causing to have acute pulmonary edema. 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 * Ongoing aspiration of his oral secretions with recurrent infection. * [place] disease by history * History of prostate cancer with no active malignancy. * Complicated left pleural effusion with exudative pleural effusion which appears to be stable. No evidence suggestive of malignancy or active infection or tuberculosis at this present time. RECOMMENDATION As he is significantly in respiratory distress and respiratory failure transferred to the intensive care unit I did discuss with the patient and subsequently discussed with his daughter over the telephone. Due to his advanced age and underlying multiple issues patient's wishes and the patient's daughter's wishes are not produce significantly aggressive therapy. They wish maximum conservative therapy. They agree for him to be transferred to the ICU for aggressive suctioning and monitoring. They do not wish him to have any mechanical ventilation or central line or vasopressor. There are on maximum therapy with IV fluids, antibiotics and maximum medical therapy for his IA. We will honor their wishes and will transfer him to ICU * Transition him into high flow oxygen * Keep the head of bed elevated. * Recurrent suction * IV. Lasix, Harris catheter * Continue maximum medical therapy for acute IA, echocardiogram * Continue antibiotics for now. * Order QuantiFERON gold test. * Aggressive pulmonary toilet. * Use ipratropium every 4 hours [id number] hold albuterol if he is tachycardic and use albuterol his heart rate is stable * Morphine 2 mg every hour when necessary for dyspnea and chest pain * Hold tube feeding for now * If he stable use metoprolol by mouth twice a day * Antiplatelet therapy to continue * Continue Unasyn Patient is DNR/DNI, no pressors maximum conservative therapy. At this present time no acute coronary intervention unless he dramatically recovers. Discussed with the daughter and the patient I did discuss this with Fransico Tinsley MD as well Patient is critically ill total time spent 40 minutes
--- NOTE | 2016-07-25 12:23 | PN- Att Addend ---
Attending Addendum Attending Brief Note Patient seen and examined. Plan of care discussed with the medical team and the patient. Available lab work and radiology test reports were reviewed. Patient is currently on 75% nonrebreather. He denies any difficulty breathing and appears comfortable. Denies any chest pain fever or chills. patient Moved to ICU after getting hypoxic. Vital Signs Date Time Temp Pulse Resp B/P Pulse O2 O2 Flow FiO2 Ox Delivery Rate 07/25 1129 96 Nasal 75% Cannula 07/25 1055 115 91/65 07/25 0917 97 Nasal 75% Cannula 07/25 08 90 Part 60% ReBreather 07/25 08 100.6 128 40 90/60 94 Nasal 75% Cannula 07/25 0752 91 Part 60% ReBreather 07/25 0258 94 Part 60% ReBreather 07/25 0209 96 Non 100% ReBreather 07/25 0022 98.1 110 18 100/60 95 Nasal Cannula 07/25 0000 95 Nasal 4.0L Cannula 07/24 2113 107 104/66 07/24 2007 94 Nasal 4.0L Cannula 07/24 1620 98.4 86 16 100/70 94 Nasal 4.0L Cannula 07/24 1600 93 Nasal 4.0L Cannula 07/24 1335 Venti Mask 40% Intake & Output 07/25 1600 07/25 0800 07/25 0000 Intake Total 975 220 Output Total 125 125 Balance 850 95 Intake, IV 500 Intake, Oral 0 Intake, Tube 350 140 Feeding Intake, Tube 125 80 Irrigant Number 1 Bowel Movements Output, Urine 125 125 Exam: General: Patient awake slightly lethargic and partially oriented without any distress CVS: S1 plus S2 without any murmur or gallops Chest: Few scattered crepitation without any wheeze. There is no respiratory distress. 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: Awake alert oriented without any focal neuro deficit and follows command appropriately Extremities: No edema; no clubbing or cyanosis noted Laboratory Tests 07/25 07/25 07/25 07/25 07/24 1025 0620 0425 0210 2220 Blood Gas pH (7.35 - 7.45 PH) 7.37 pCO2 (35 - 45 TORR) 41 pO2 (80 - 100 TORR) 67 L HCO3 (21 - 28 MEQ/L) 23 ABG O2 Sat (Measured) (>96.0 %) 91.0 L P-50 (Temp Corrected) Y Carboxyhemoglobin (1.5 - 5.0 %) 0.1 L O2 Concentration % 60% Temperature (97.0 - 100.0 FARH) 98.0 O2 Delivery Method PRB Chemistry Sodium (137 - 145 mmol/L) Pending 144 147 H Potassium (3.5 - 5.1 mmol/L) Pending 5.9 H 4.9 Chloride (98 - 107 mmol/L) Pending 111 H 111 H Carbon Dioxide (22 - 30 mmol/L) Pending 25 25 Anion Gap (5 - 16) Pending 8 11 BUN (9 - 20 mg/dL) Pending 35 H 30 H Creatinine (0.7 - 1.2 mg/dL) Pending 1.0 0.9 Estimated GFR (>60 ml/min) > 60 > 60 BUN/Creatinine Ratio (7 - 25 %) 35.0 H 33.3 H Glucose Pending Calcium Pending Phosphorus Pending Magnesium (1.6 - 2.3 mg/dL) Pending 2.2 3.7 H Total Bilirubin Pending AST Pending ALT Pending Troponin I (<0.11 ng/ml) 0.96 *H Albumin Pending Coagulation APTT (25 - 37 SEC) Pending 59 H Miscellaneous Phlebotomy Draw Site RIGHT RADIAL 07/24 1940 1725 1409 1318 Chemistry Sodium (137 - 145 mmol/L) 148 H Potassium (3.5 - 5.1 mmol/L) 2.7 *L Chloride (98 - 107 mmol/L) 121 H Carbon Dioxide (22 - 30 mmol/L) 21 L Anion Gap (5 - 16) 6 BUN (9 - 20 mg/dL) 20 Creatinine (0.7 - 1.2 mg/dL) 0.6 L Estimated GFR (>60 ml/min) > 60 BUN/Creatinine Ratio (7 - 25 %) 33.3 H Lactic Acid (0.7 - 2.1 mmol/L) 3.3 H Cancelled Magnesium (1.6 - 2.3 mg/dL) 1.5 L Troponin I (<0.11 ng/ml) 1.34 *H 2.65 *H Microbiology Date/Time Procedure - Status Source Growth 07/25 UNK Surveillance Culture - ORD UPPER RESP 02/05 0831 Surveillance Culture - ORD GI 07/25 0759 Urine Culture - COLB URINE ROUT Chest x-ray today shows Increased hazy opacity of the right mid to lower lung. Similar appearance of small to moderate left pleural effusion with airspace opacity. Assessment and problem list * Acute hypoxemic respiratory failure- still not improved * Aspiration pneumonia with x-ray showing worsening of infiltrate * Hyperkalemia- unresolved * DM 2 * Vocal cord paralysis * Non-ST segment elevation NE Plan * Taper oxygen as tolerated * Repeat potassium level later today; give 1 dose of Kayexalate orally * Continue antibiotics * Pulmonary consult note reviewed; activity checking QuantiFERON gold. In addition please send AFB Gram stain * Keep nothing by mouth * Aspiration precautions * Continue feeding through PEG tube * Swallow evaluation
[2016-07-25 12:35] LABS: PTT 48 SEC (25-37)
--- NOTE | 2016-07-25 13:14 | NUR ---
K 6.3 REPORTED FROM LAB. KAEXYLATE X 2 BOTTLES GIVEN. WILL CONTINUE TO MONITOR. REPEAT LABS AT 1500.
--- NOTE | 2016-07-25 15:49 | NUR ---
PT WAS TRANSFERED TO ICU APPROX 830AM. PT IS DROWSY, O X 3 WITH GARBLED SPEECH. PLACED ON HIGH FLOW O2 NASAL CANULA AT 75%. SATS 94% +. LUNGS + RHONCHI AND CRACKLES. RR 30-40'S, UNLABORED. FAMILY WAS CONTACTED AND PT WAS MADE DNR/DNI. PT HR 120'S ST. BP 90'S. ABDOMEN IS SOFT W +BS. PT TUBE FEED PLACED ON HOLD PER DR ORTEGA, NO IVF AT THIS TIME. GARCIA IS INSITU W VERY MINIMAL U.O AND REMAINS UNCHANGED. DR BROWN AND DR ORTEGA MADE AWARE. PT ON HEPARIN GTT. ALPS IN PLACE. ICU BUNDLE AND PTT OBTAINED X 2. HEPARIIN GTT ADJUSTED TO PROTOCOL - BOLUS PER DR BROWN. K 6.3 TX WITH KAEXYLATE 120ML VIA PEG TUBE. PT HAS HAD MULTIPLE LOOSE BM'S. URINE C/S AND UA OBTAINED AND SENT.
[2016-07-25 15:59] LABS: ABSOLUTE BASOPHIL COUNT 0 /CUMM (0.0-0.2); ABSOLUTE EOSINOPHIL COUNT 0 /CUMM (0.0-0.7); ABSOLUTE GRANULOCYTE CT 15.5 /CUMM (1.4-6.5); ABSOLUTE LYMPH COUNT 0.6 /CUMM (1.2-3.4); BASOPHIL % 0 % (0.0-2.0); EOSINOPHIL % 0 % (0-5); HEMATOCRIT 28.2 % (42-52); MEAN CORPUSCULAR HGB 29.9 PG (27.0-31.0); MEAN CORPUSCULAR HGB CONC 32.6 G/DL (33.0-37.0); MEAN CORPUSCULAR VOLUME 91.8 FL (80.0-94.0); MEAN PLATELET VOLUME 10.3 FL (7.4-10.4); PLATELET COUNT 302 /CUMM (130-400); RBC DISTRIBUTION WIDTH 14.4 % (11.5-14.5); RED BLOOD CELL CT 3.08 /CUMM (4.70-6.10)
[2016-07-25 16:00] VITALS: BP 104/62
[2016-07-25 16:01] LABS: GRANULOCYTE % 90.9 % (42.2-75.2)
[2016-07-25 16:09] LABS: PTT 58 SEC (25-37)
--- NOTE | 2016-07-25 16:39 | PN- Cardiology ---
Subjective Subjective: * Patient decompensated last evening and went into respiratory distress. He feels improved today on high flow oxygen. * creatinine is 1.4 * cardiac enzymes are trending down * increased WBC count Objective Vital Signs and I&Os Vital Signs Date Time Temp Pulse Resp B/P Pulse O2 O2 Flow FiO2 Ox Delivery Rate 07/25 1200 97 Nasal 60% Cannula 07/25 1129 96 Nasal 75% Cannula 07/25 1055 115 91/65 07/25 0917 97 Nasal 75% Cannula 07/25 08 90 Part 60% ReBreather 07/25 08 100.6 128 40 90/60 94 Nasal 75% Cannula 07/25 0752 91 Part 60% ReBreather 07/25 0258 94 Part 60% ReBreather 07/25 0209 96 Non 100% ReBreather 07/25 0022 98.1 110 18 100/60 95 Nasal Cannula 07/25 0000 95 Nasal 4.0L Cannula 07/24 2113 107 104/66 07/24 2007 94 Nasal 4.0L Cannula Intake & Output 07/25 1600 07/25 0800 07/25 0000 07/24 1600 07/24 0800 07/24 0000 Intake Total 367 975 220 800 220 Output Total 140 125 125 150 Balance 227 850 95 800 70 Intake, IV 367 500 800 220 Intake, Oral 0 0 Intake, Tube 350 140 Feeding Intake, Tube 125 80 Irrigant Number 3 1 Bowel Movements Output, Urine 140 125 125 150 Patient 145 lb 170 lb Weight Physical Exam: General: WD/ WN male in NAD; alert and oriented x 3 Neck: no JVD, no carotid bruit Heart: RRR with 3/6 systolic murmur Lungs: decreased BS at left base, no crackles Extremities: no edema Assessment/Plan Assessment/Plan * This patient has ruled in for an ID likely related to LCX disease. In this setting he appears to have papillary muscle ischemia causing mitral regurgitation and consequent hypotension with pulmonary edema. We will obtain and review his echocardiogram to assess his MR and to look for structural abnormalities of the valvular apparatus. * The patietn and family want conservative treatment due to his age and comorbidities. No cardiac cath is planned at this time. BP is in the 90's and I do not think he will tolerate any medications for afterload reduction at this time. Continue his current cardiac meds. Continue telemetry? Yes
--- NOTE | 2016-07-25 17:39 | PN- CRCU ---
Subjective HPI/Critical Care Issues: Patient seen and examined. He was desaturating in the morning so he was transfered to ICU and put on 100 % non rebreather mask. He also reported of some chest discomfort. IN icu, he was evaluated by Dr. Chacko who recommended to transition him to high flow. Later in ICU, patient was reevaluated by me, his SOb has improved and he was doing better Objective Current Medications: Current Medications Sig/Lisa Start time Last Medication Dose Route Stop Time Status Admin Acetaminophen 650 MG Q6P PRN 07/24 0145 AC PO Acetaminophen/ 1 TAB Q6P PRN 07/24 0145 AC Hydrocodone Bitart PO Albuterol Sulfate 3 ML TID 07/24 1600 AC 07/25 INH 0749 Ampicillin Sodium/ 1,500 MG Q6 07/24 0600 AC 07/25 Sulbactam Sodium IV 1057 Sodium Chloride 100 ML Aspirin 81 MG DAILY 07/26 1000 CAN PO Aspirin 325 MG DAILY 07/25 1000 AC 07/25 PO 1055 Aspirin 325 MG DAILY 07/24 1999 DC PO Atorvastatin Calcium 40 MG 1700 07/25 1700 AC PO Clopidogrel Bisulfate 225 MG ONCE ONE 07/24 2000 DC / PO 04 2030 2114 Clopidogrel Bisulfate 75 MG DAILY 07/24 1509 AC 07/25 PO 1054 Furosemide 40 MG ONCE ONE 07/25 0800 DC 07/25 IV 07/25 0801 0802 Heparin Sodium/ 25,000 UNIT Q24H / 1530 AC 07/24 Dextrose IV 1548 Dextrose/Water 500 ML Hydromorphone HCl 0.5 MG Q4P PRN 07/24 0145 AC IV Insulin Human Regular 0 Q6 07/24 0154 AC 07/25 SC 1249 Ipratropium [place] 2.5 ML Q6 07/25 1800 DC 07/25 INH 1255 Ipratropium [place] 2.5 ML TID 07/25 1600 AC INH Ipratropium [place] 2.5 ML TID 07/24 1600 DC 07/25 INH 0748 Magnesium Sulfate 1 GM ONCE ONE 07/25 1130 CAN Dextrose/Water 100 ML IV 07/25 1529 Metoprolol Tartrate 12.5 MG BID 07/24 2200 AC 07/24 PO 2113 Morphine Sulfate 2 MG ONCE ONE 07/25 0830 DC 07/25 IV 07/25 0831 0821 Nitroglycerin 0.5 GM Q6 07/24 2001 [facility] Ondansetron HCl 4 MG ONCE ONE 07/25 729 DC 07/25 IV 07/25 0731 0726 Patient Medication 1 UNIT ONE NR 07/24 2014 [place] Teaching ED 07/24 2029 Patient Medication 1 UNIT ONE NR 07/24 2014 [place] Teaching ED 07/24 2029 Potassium Chloride 10 MEQ Q1H 07/24 2099 DC 07/24 IV 07/24 2201 2354 Sodium Chloride 1,000 ML Q8H 07/25 0645 DC 07/25 IV 0708 Sodium Chloride 1,000 ML BOLUS ONE 07/25 0630 CAN IV 07/25 0829 Sodium Chloride 1,000 ML Q10H 07/24 0515 DC 07/24 IV 1817 Sodium Polystyrene 120 ML ONCE ONE 07/25 1315 DC 07/25 Sulfonate PO 07/25 1316 1313 Vital Signs & I&O Last 24 Hrs of Vitals and I&O: Vital Signs Date Time Temp Pulse Resp B/P Pulse O2 O2 Flow FiO2 Ox Delivery Rate 07/25 1200 97 Nasal 60% Cannula 07/25 1129 96 Nasal 75% Cannula 07/25 1055 115 91/65 07/25 0917 97 Nasal 75% Cannula 07/25 08 90 Part 60% ReBreather 07/25 08 100.6 128 40 90/60 94 Nasal 75% Cannula 07/25 0752 91 Part 60% ReBreather 07/25 0258 94 Part 60% ReBreather 07/25 0209 96 Non 100% ReBreather 07/25 0022 98.1 110 18 100/60 95 Nasal Cannula 07/25 0000 95 Nasal 4.0L Cannula 07/24 2112 107 104/66 07/24 2006 94 Nasal 4.0L Cannula Intake & Output 07/25 1600 07/25 0800 07/25 0000 Intake Total 367 975 220 Output Total 140 125 125 Balance 227 850 95 Intake, IV 367 500 Intake, Oral 0 Intake, Tube 350 140 Feeding Intake, Tube 125 80 Irrigant Number 3 1 Bowel Movements Output, Urine 140 125 125 Exam General Appearance: well developed/nourished, alert, awake, anxious Head: atraumatic Neck: supple Respiratory: b/l crackles Cardiovascular: regular rate/rhythm Abdomen: normal bowel sounds, soft, non-tender, no organomegaly Skin: intact Impression/Plan Impression/Plan Impression/Plan: Patient was admitted from July 15 to July 16, for aspiration pneumonia and worsening of shortness of breath. Earlier he was admitted for aspiration pneumonia with parapneumonic effusion S/P thoracentesis. He was discharged to ECF. He completed antibiotics , underwent repeat thoracentesis (Jul 19, 320 mL of slightly turbid bloody, non-clotting fluid was aspirated) while in ECF and to his normal state of health. Patient was brought to [facility] after he started choking on some liquids. Recommendations: Labs on admission: WBC 22.2 with granulocytes 93% otherwise no remarkable changes in his labs compared to labs done earlier hospitalization. EKG: Sinus tachycardia with rate related ST depression in lateral leads. CXR:Similar appearance to prior. Small to moderate left pleural effusion with fluid tracking along the lateral chest wall. Associated airspace opacity. Persistent right mid to lower lung hazy opacity. CXR from 07/25/15 Increased hazy opacity of the right mid to lower lung. Similar appearance of small to moderate left pleural effusion with airspace opacity. Assessment and Plan: Acute hypoxic respiratory failure: Probably secondary to aspiration pneumonia, Patient was continued on IV unasyn, WBC 17 today from 16 on 07/24, will continue pulmonary toilet , chest PT , nebulization with albuterol , continue oxygen support. Incentive spirometry Will hold his tube feeds for now and re-evaluate in am. history of pleural effusion: Recent thoracentesis done on July 19, 320 mL of slightly turbid bloody, non-clotting fluid was aspirated. His pleural effusions have been chronic, no plan to tap for now. Sinus tachycardia : Patient had elevated troponins were elevated yesterday to 2.65, he was started on Heprin drip, cardiology consult service was on board. He was also started on aspirin and plavix. No plan for cath right now due to his unstable clinical condition. Diabetes: Patient continued on SS novolog DVT ppx- Patient on heprin drip Code status DNR/DNI Code Status: Do Not Intubate Problem List: 1. Diabetes mellitus 2. Elevated troponin
--- NOTE | 2016-07-25 17:55 | ECHOCARDIOGRAM REPORT ---
MILLY LLOYD Age: 89 : 1925 Gender: M Exam Date: 07/25/2016 10:08 Exam Location: [facility] Ht (in): 70 Wt (lb): 145 BSA: 1.80 BP: 100 / 60 Ordering Physician: GUERO ROGERS M Referring Physician: Milly Tinsley MD, PhD Technologist: Denise Cordova [facility] Room Number: 109 Indications: CHEST PAIN Rhythm: Sinus Technical Quality: good FINDINGS Left Ventricle Normal left ventricular size and wall thickness. Severely decreased systolic function with severe anterior wall hypokinesis. The ejection fraction is visually estimated at 25%. Right Ventricle The right ventricle is normal in size and function. Right Atrium The right atrium is normal in size. Left Atrium The left atrium is normal in size. The interatrial septum is intact. Mitral Valve The mitral valve is moderately thickened. There is moderate eccentric mitral regurgitation. Aortic Valve Severely thickened and sclerotic aortic valve with decreased leaflet excursion consistent with moderate to severe aortic stenosis. There is no aortic regurgitation. Tricuspid Valve The tricuspid valve is normal in structure and function. There is moderate tricuspid regurgitation. Pulmonary artery systolic pressure is moderate to severely elevated to 59mmHg. Pulmonic Valve Structurally normal pulmonic valve. There is no pulmonic regurgitation. Pericardium Normal pericardium without effusion. No pleural effusion. Great Vessels Normal aortic root dimension. The aortic arch and great vessels are well seen and are normal. CONCLUSIONS 1. Severely decrease EF of 25% with anterior and apical akinesis. 2. Moderate mitral regurgitation. 3. Moderate tricuspid regurgitation. 4. Moderate to severe aortic stenosis. 5. Moderate to severe pulmonary hypertension. Milly Tinsley M.D. (Electronically Signed) Final Date: 25 July 2016 17:54 MEASUREMENTS (Male / Female) Normal Values 2D ECHO LV Diastolic Diameter PLAX 4.1 cm 4.2 - 5.9 / 3.9 - 5.3 cm LV Systolic Diameter PLAX 3.1 cm 2.1 - 4.0 cm LV Fractional Shortening PLAX 24.4 % 25 - 46 % LV Ejection Fraction 2D Teich 48.9 % IVS Diastolic Thickness 1.2 cm LVPW Diastolic Thickness 1.1 cm LV Relative Wall Thickness 0.6 RV Internal Dim ED PLAX 2.5 cm 1.9 - 3.8 cm LVOT Diameter 1.9 cm Aortic Root Diameter 2.8 cm LA Systolic Diameter LX 2.7 cm 3.0 - 4.0 / 2.7 - 3.8 cm LA Volume 18.0 cm 18 - 58 / 22 - 52 cm Ascending Aorta Diameter 2.9 cm DOPPLER AV Peak Velocity 311.0 cm/s AV Peak Gradient 38.7 mmHg AV Mean Velocity 232.0 cm/s AV Mean Gradient 24.0 mmHg AV Velocity Time Integral 59.6 cm LVOT Peak Velocity 161.0 cm/s LVOT Peak Gradient 10.4 mmHg LVOT Mean Velocity 118.0 cm/s LVOT Mean Gradient 6.0 mmHg LVOT Velocity Time Integral 31.4 cm LVOT Stroke Volume 89.0 cm AV Area Cont Eq vti 1.5 cm AV Area Cont Eq pk 1.5 cm MV Peak Velocity 150.0 cm/s MV Peak Gradient 9.0 mmHg MV Mean Velocity 78.5 cm/s MV Mean Gradient 3.0 mmHg Mitral E Point Velocity 138.0 cm/s MV PHT Velocity 153.0 cm/s MV Deceleration [place] 1424.0 cm/s MV Pressure Half Time 32.2 ms MV Area PHT 6.8 cm MV Deceleration Time 87.0 ms TR Peak Velocity 351.0 cm/s TR Peak Gradient 49.3 mmHg Right Atrial Pressure 10.0 mmHg Pulmonary Artery Systolic Pressu 59.3 mmHg Right Ventricular Systolic Press 59.3 mmHg PV Peak Velocity 75.4 cm/s PV Peak Gradient 2.3 mmHg PV Mean Velocity 50.9 cm/s PV Mean Gradient 1.0 mmHg PV Velocity Time Integral 11.1 cm LV E' Lateral Velocity 14.9 cm/s Mitral E to LV E' Lateral Ratio 9.3 LV E' Septal Velocity 6.6 cm/s Mitral E to LV E' Septal Ratio 20.8
[2016-07-25 23:00] VITALS: BP 92/54
--- NOTE | 2016-07-26 00:42 | NUR ---
PATIENT HAD 7 COMPLEXES NON SUSTAIN V TACH, PATIENT IS SLEEPING COMFORTABLY, BP IS 95/56, HR 125, RR 55, OSAT 99%, NO COMPALIN OF PAIN. PUPILS EQUAL AND REACTIVE TO LIGHT DR. RANDOLPH MURRAY INFORMED REGARDING OF THE ABOVE SITUATION.
[2016-07-26 03:58] LABS: ABSOLUTE BASOPHIL COUNT 0 /CUMM (0.0-0.2); ABSOLUTE EOSINOPHIL COUNT 0 /CUMM (0.0-0.7); ABSOLUTE GRANULOCYTE CT 16.5 /CUMM (1.4-6.5); ABSOLUTE LYMPH COUNT 0.4 /CUMM (1.2-3.4); ABSOLUTE MONOCYTE COUNT 1.1 /CUMM (0.10-0.60); BASOPHIL % 0.1 % (0.0-2.0); EOSINOPHIL % 0.1 % (0-5); GRANULOCYTE % 91.4 % (42.2-75.2); HEMATOCRIT 27.4 % (42-52); MEAN CORPUSCULAR HGB 30.1 PG (27.0-31.0); MEAN CORPUSCULAR VOLUME 91.2 FL (80.0-94.0); MEAN PLATELET VOLUME 10.2 FL (7.4-10.4); PLATELET COUNT 283 /CUMM (130-400); RBC DISTRIBUTION WIDTH 14.4 % (11.5-14.5)
[2016-07-26 04:05] LABS: PTT 58 SEC (25-37)
[2016-07-26 07:00] VITALS: BP 96/58
--- NOTE | 2016-07-26 07:48 | PN- Resident CRCU ---
Subjective HPI/CRCU Issues: Patient seen and examined. He is laying on bed looks relaxed and comfortable. Patient was in the high flow oxygen and maintaining a saturation above 95%. Patient denies shortness breath, palpitation or chest pain. His only current complaint he has is feeling nauseated with some very mild epigastric burning sensation. He denies abdominal pain, vomiting or change of bowel habits. Objective Vital Signs & I&O Last 8 Hrs of Vitals and I&O: Intake & Output 07/26 1600 07/26 0800 07/26 0000 Intake Total 943 147.2 Output Total 305 285 Balance 638 -137.8 Intake, IV 943 147.2 Intake, Oral 0 0 Number 6 5 Bowel Movements Output, Urine 305 285 Laboratory Tests 07/26 07/25 0335 1533 Chemistry Sodium (137 - 145 mmol/L) 153 H 149 H Potassium (3.5 - 5.1 mmol/L) 3.7 5.1 Chloride (98 - 107 mmol/L) 115 H 112 H Carbon Dioxide (22 - 30 mmol/L) 30 27 Anion Gap (5 - 16) 8 10 BUN (9 - 20 mg/dL) 33 H 40 H Creatinine (0.7 - 1.2 mg/dL) 0.9 1.4 H Estimated GFR (>60 ml/min) > 60 48 L BUN/Creatinine Ratio (7 - 25 %) 28.6 H Glucose (65 - 99 mg/dL) 70 Calcium (8.4 - 10.2 mg/dL) 8.1 L Phosphorus (2.5 - 4.5 mg/dL) 2.9 Magnesium (1.6 - 2.3 mg/dL) 2.2 Total Bilirubin (0.2 - 1.3 mg/dL) 0.6 AST (17 - 59 U/L) 73 H ALT (21 - 72 U/L) 31 Albumin (3.5 - 5.0 g/dL) 2.3 L Coagulation APTT (25 - 37 SEC) 58 H 58 H Hematology CBC w Diff MAN DIFF ORDERED NO MAN DIFF REQ WBC (4.8 - 10.8 /CUMM) 18.0 H 17.0 H RBC (4.70 - 6.10 /CUMM) 3.00 L 3.08 L Hgb (14.0 - 18.0 G/DL) 9.0 L 9.2 L Hct (42 - 52 %) 27.4 L 28.2 L MCV (80.0 - 94.0 FL) 91.2 91.8 MCH (27.0 - 31.0 PG) 30.1 29.9 RDW (11.5 - 14.5 %) 14.4 14.4 Plt Count (130 - 400 /CUMM) 283 302 MPV (7.4 - 10.4 FL) 10.2 10.3 Gran % (42.2 - 75.2 %) 91.4 H 90.9 H Lymphocytes % (20.5 - 51.1 %) 2.0 L 3.5 L Monocytes % (1.7 - 9.3 %) 6.4 5.6 Eosinophils % (0 - 5 %) 0.1 0 Basophils % (0.0 - 2.0 %) 0.1 0 L Absolute Granulocytes (1.4 - 6.5 /CUMM) 16.5 H 15.5 H Segmented Neutrophils (42.2 - 75.2 %) 80 H Band Neutrophils (0.0 - 5.0 %) 4 Absolute Lymphocytes (1.2 - 3.4 /CUMM) 0.4 L 0.6 L Lymphocytes (20.5 - 51.1 %) 8 L Monocytes (1.7 - 9.3 %) 8 Absolute Monocytes (0.10 - 0.60 /CUMM) 1.1 H 1.0 H Absolute Eosinophils (0.0 - 0.7 /CUMM) 0 0 Absolute Basophils (0.0 - 0.2 /CUMM) 0 0 Platelet Estimate (ADEQUATE) ADEQUATE Polychromasia 1+ Hypochromic-Microcytic 1+ PUBS MCHC (33.0 - 37.0 G/DL) 33.0 32.6 L 07/25 1025 Chemistry Sodium (137 - 145 mmol/L) 143 Potassium (3.5 - 5.1 mmol/L) 6.3 *H Chloride (98 - 107 mmol/L) 109 H Carbon Dioxide (22 - 30 mmol/L) 23 Anion Gap (5 - 16) 11 BUN (9 - 20 mg/dL) 39 H Creatinine (0.7 - 1.2 mg/dL) 1.3 H Estimated GFR (>60 ml/min) 52 L Glucose (65 - 99 mg/dL) 301 H Calcium (8.4 - 10.2 mg/dL) 8.1 L Phosphorus (2.5 - 4.5 mg/dL) 3.8 Magnesium (1.6 - 2.3 mg/dL) 2.3 Total Bilirubin (0.2 - 1.3 mg/dL) 0.6 AST (17 - 59 U/L) 40 ALT (21 - 72 U/L) 20 L Albumin (3.5 - 5.0 g/dL) 2.8 L Coagulation APTT (25 - 37 SEC) 48 H Exam General Appearance: alert, awake, comfortable Head: atraumatic, normal appearance Respiratory: bilateral rhonchi and crackles Cardiovascular: regular rate/rhythm Gastrointestinal: normal bowel sounds, soft, non-tender Extremities: no edema Current Medications: Current Medications Sig/Lisa Start time Last Medication Dose Route Stop Time Status Admin Acetaminophen 650 MG Q6P PRN 07/24 0145 AC PO Acetaminophen/ 1 TAB Q6P PRN 07/24 0145 AC Hydrocodone Bitart PO Albuterol Sulfate 3 ML TID 07/24 1600 AC 07/26 INH 0841 Ampicillin Sodium/ 1,500 MG Q6 07/24 0600 AC 07/26 Sulbactam Sodium IV 0519 Sodium Chloride 100 ML Aspirin 325 MG DAILY 07/25 1000 AC 02 PO 1055 Atorvastatin Calcium 40 MG 1700 07/25 1700 AC 02 PO 1758 Clopidogrel Bisulfate 75 MG DAILY 07/24 1509 AC 07/25 PO 1054 Heparin Sodium/ 25,000 UNIT Q24H / 1530 AC 07/25 Dextrose IV 1758 Dextrose/Water 500 ML Hydromorphone HCl 0.5 MG Q4P PRN 07/24 0145 AC IV Insulin Human Regular 0 Q6 07/24 0154 AC 07/26 SC 0520 Ipratropium [place] 2.5 ML Q6 07/25 1800 DC 07/25 INH 1255 Ipratropium [place] 2.5 ML TID 07/25 1600 AC 07/26 INH 0841 Ipratropium [place] 2.5 ML TID 07/24 1600 DC 07/25 INH 0748 Magnesium Sulfate 1 GM ONCE ONE 07/25 1130 CAN Dextrose/Water 100 ML IV 07/25 1529 Metoclopramide HCl 10 MG ONCE ONE 07/26 0930 AC IV 07/26 0931 Metoprolol Tartrate 12.5 MG BID 07/24 2200 AC 07/24 PO 2113 Nitroglycerin 0.5 GM Q6 07/24 2001 TOP Pantoprazole Sodium 40 MG DAILY 07/26 1000 IV Patient Medication 1 UNIT ONE NR 07/26 0900 Teaching ED 07/26 1500 Sodium Chloride 1,000 ML Q8H 07/25 0645 DC 07/25 IV 0708 Sodium Polystyrene 120 ML ONCE ONE 07/25 1315 DC 07/25 Sulfonate PO 07/25 1316 1313 Impression/Plan Impression/Problem List Impression: Impression/Plan: Patient was admitted from July 15 to July 16, for aspiration pneumonia and worsening of shortness of breath. Earlier he was admitted for aspiration pneumonia with parapneumonic effusion S/P thoracentesis. He was discharged to F. He completed antibiotics , underwent repeat thoracentesis (Jul 19, 320 mL of slightly turbid bloody, non-clotting fluid was aspirated) while in ECF and to his normal state of health. Patient was brought to [facility] after he started choking on some liquids. Assessment and Plan: 1.Acute hypoxic respiratory failure: Probably secondary to aspiration pneumonia, Patient was continued on IV unasyn, WBC 18 today from 17 yesterday. * We will continue Unasyn 1500 every 6 IV * will continue pulmonary toilet * nebulization with albuterol * continue oxygen support. * Incentive spirometry * His feeding tube is on hold (aspiration precautions) 2.pleural effusion: Recent thoracentesis done on July 19, 320 mL of slightly turbid bloody, non- clotting fluid was aspirated. His pleural effusions have been chronic * no plan to tap for now. 3.NSTEMI Patient had elevated troponins with the highest being 2.65 now it's 0.96, he was started on Heprin drip, cardiology consult. He was also started on aspirin and plavix. No plan for cath right now due to his unstable clinical condition. * Continue heparin drip * Continue aspirin and Plavix * We will continue statin * We'll follow cardiology recommendations 4. Diabetes * Insulin sliding scale * ACCcheck 5.NICK (resolved) At some point during this admission creatinine start to rise, with yesterday being the highest 1.4. Today his creatinine is back within normal limits 0.9 6. Hyperkalemia(resolved) Diet nothing by mouth DVT ppx- Patient on heprin drip Code status DNR/DNI Problem List: 1. Aspiration pneumonia 2. GERD Pain Ratin Tomorrow's Labs & Rationales: cbc and icu Plan DVT/Prophylaxis: mechanical, pharmacological Code Status: Do Not Intubate Tomorrow's Labs & Rationales: cbc and icu Plan Code Status: Do Not Intubate
[2016-07-26 08:00] VITALS: BP 110/64
--- NOTE | 2016-07-26 11:21 | PN- CRCU ---
Subjective HPI/Critical Care Issues: pt seen and examined on high flow o2 ?aspiration thirsty comfortable today no cp no leg edema no n/v/d/c Objective Current Medications: Current Medications Sig/Lisa Start time Last Medication Dose Route Stop Time Status Admin Acetaminophen 650 MG Q6P PRN 07/24 0145 AC PO Acetaminophen/ 1 TAB Q6P PRN 07/24 0145 AC Hydrocodone Bitart PO Albuterol Sulfate 3 ML TID 07/24 1600 AC 07/26 INH 0841 Ampicillin Sodium/ 1,500 MG Q6 07/24 0600 AC 07/26 Sulbactam Sodium IV 0519 Sodium Chloride 100 ML Aspirin 325 MG DAILY 07/25 1000 AC 07/26 PO 1017 Atorvastatin Calcium 40 MG 1700 07/25 1700 AC 07/25 PO 1758 Clopidogrel Bisulfate 75 MG DAILY 07/24 1509 AC 07/26 PO 1017 Heparin Sodium/ 25,000 UNIT Q24H 07/24 1530 AC 07/25 Dextrose IV 1758 Dextrose/Water 500 ML Hydromorphone HCl 0.5 MG Q4P PRN 07/24 0145 AC IV Insulin Human Regular 0 Q6 07/24 0154 AC 07/26 SC 0520 Ipratropium [place] 2.5 ML Q6 07/25 1800 DC 07/25 INH 1255 Ipratropium [place] 2.5 ML TID 07/25 1600 AC 07/26 INH 0841 Ipratropium [place] 2.5 ML TID 07/24 1600 DC 07/25 INH 0748 Magnesium Sulfate 1 GM ONCE ONE 07/25 1130 CAN Dextrose/Water 100 ML IV 07/25 1529 Metoclopramide HCl 10 MG ONCE ONE 07/26 0930 DC 07/26 IV 07/26 0931 1016 Metoprolol Tartrate 12.5 MG BID 07/24 2200 AC 07/26 PO 1017 Nitroglycerin 0.5 GM Q6 07/24 2002 AC TOP Pantoprazole Sodium 40 MG DAILY 07/26 1000 AC 07/26 IV 1016 Patient Medication 1 UNIT ONE NR 07/26 0900 AC Teaching ED 07/26 1500 Sodium Chloride 1,000 ML Q8H 07/25 0645 DC 02 IV 0708 Sodium Polystyrene 120 ML ONCE ONE 07/25 1315 DC 07/25 Sulfonate PO 07/25 1316 1313 Vital Signs & I&O Last 24 Hrs of Vitals and I&O: Vital Signs Date Time Temp Pulse Resp B/P Pulse O2 O2 Flow FiO2 Ox Delivery Rate 07/26 1017 106 109/61 07/26 0845 99 Nasal 55% Cannula 07/26 0800 98.0 104 23 110/64 100 Nasal 55% Cannula 07/26 0700 98.4 104 19 96/58 99 Nasal 55% Cannula 07/26 0400 98 Nasal 55% Cannula 07/26 0139 99 Nasal 60% Cannula 07/26 0000 99 Nasal 60% Cannula 07/25 2300 97.8 97 24 92/54 98 Nasal 60% Cannula 07/25 2200 98 17 97/54 07/25 2004 99 Nasal 75% Cannula 07/25 2000 99 Nasal 60% Cannula 07/25 1600 99 Nasal 60% Cannula 07/25 1600 98.3 102 23 104/62 99 Nasal 60% Cannula 07/25 1200 97 Nasal 60% Cannula 07/25 1129 96 Nasal 75% Cannula Intake & Output 07/26 1600 07/26 0800 02 0000 Intake Total 943 147.2 Output Total 305 285 Balance 638 -137.8 Intake, IV 943 147.2 Intake, Oral 0 0 Number 6 5 Bowel Movements Output, Urine 305 285 Patient 145 lb Weight Exam Other Physical Findings: gen awake and alert heent high flow o2 cvs s1, s2, distand sounds abd soft bs+ ext without edema Results Last 24 Hrs of Lab Results: Laboratory Tests 07/26/16 0335: Anion Gap 8, Estimated GFR > 60, Glucose 70, Calcium 8.1 L, Phosphorus 2.9, Magnesium 2.2, Total Bilirubin 0.6, AST 73 H, ALT 31, Albumin 2.3 L, APTT 58 H, CBC w Diff MAN DIFF ORDERED, RBC 3.00 L, MCV 91.2, MCH 30.1, RDW 14.4, MPV 10.2, Gran % 91.4 H, Lymphocytes % 2.0 L, Monocytes % 6.4, Eosinophils % 0.1, Basophils % 0.1, Absolute Granulocytes 16.5 H, Segmented Neutrophils 80 H, Band Neutrophils 4, Absolute Lymphocytes 0.4 L, Lymphocytes 8 L, Monocytes 8, Absolute Monocytes 1.1 H, Absolute Eosinophils 0, Absolute Basophils 0, Platelet Estimate ADEQUATE, Polychromasia 1+, Hypochromic-Microcytic 1+, PUBS MCHC 33.0 07/25/16 1533: Anion Gap 10, Estimated GFR 48 L, BUN/Creatinine Ratio 28.6 H, APTT 58 H, CBC w Diff NO MAN DIFF REQ, RBC 3.08 L, MCV 91.8, MCH 29.9, RDW 14.4, MPV 10.3, Gran % 90.9 H, Lymphocytes % 3.5 L, Monocytes % 5.6, Eosinophils % 0, Basophils % 0 L, Absolute Granulocytes 15.5 H, Absolute Lymphocytes 0.6 L, Absolute Monocytes 1.0 H, Absolute Eosinophils 0, Absolute Basophils 0, PUBS MCHC 32.6 L Impression/Plan Impression/Plan Impression/Plan: Impression 89 year old man -hypoxemic respiratory failure, ?aspiration pna -prostate ca hx -dnr/dni -chronic left pleural effusion, exudative, but cytology negative for malignancy Plan -aspiration precautions -cardiology f/u -cont abx -swallowing evaluation/tube feeding -check CXR tomorrow am -will f/u effusion and determine further thoracentesis need DVT prophylaxis at all times TTS 45 min Code Status: Do Not Intubate
[2016-07-26 16:00] VITALS: BP 100/60
--- NOTE | 2016-07-26 16:41 | PN- Cardiology ---
Subjective Subjective: the patient is comfortable. No current chest pain. No shortness of breath. No palpitations. No diaphoresis. Objective Vital Signs and I&Os Vital Signs Date Time Temp Pulse Resp B/P Pulse O2 O2 Flow FiO2 Ox Delivery Rate 07/26 1431 93 Nasal 6.0L Cannula 07/26 1153 93 Nasal 40% Cannula 07/26 1017 106 109/61 07/26 0845 99 Nasal 55% Cannula 07/26 08 100 Nasal 55% Cannula 07/26 08 98.0 104 23 110/64 100 Nasal 55% Cannula 07/26 0700 98.4 104 19 96/58 99 Nasal 55% Cannula 07/26 0400 98 Nasal 55% Cannula 07/26 0139 99 Nasal 60% Cannula 07/26 0000 99 Nasal 60% Cannula 07/25 2300 97.8 97 24 92/54 98 Nasal 60% Cannula 07/25 2200 98 17 97/54 07/25 2003 99 Nasal 75% Cannula 07/25 1999 99 Nasal 60% Cannula Intake & Output 07/26 1600 07/26 0807/26 0000 07/25 1600 07/25 0800 07/25 0000 Intake Total 943 147.2 367 975 220 Output Total 305 285 140 125 125 Balance 638 -137.8 227 850 95 Intake, IV 943 147.2 367 500 Intake, Oral 0 0 0 Intake, Tube 350 140 Feeding Intake, Tube 125 80 Irrigant Number 6 5 3 1 Bowel Movements Output, Urine 305 285 140 125 125 Patient 145 lb Weight Physical Exam: Gen: The patient is in no acute distress HEENT: Normal nose, ears, and oropharynx. Pupils equal bilaterally. Conjunctiva normal. Neck: Supple with no JVD, no masses, and no thyromegaly Lungs: Decreased breath sounds with normal respiratory effort Heart: RRR, S1, S2, 2-3/6 systolic murmur. No peripheral edema, 2+ pulses in the lower extremities bilaterally Abdomen: Soft, nontender, no masses. No hepatomegaly. No splenomegaly Extremities: No clubbing or cyanosis. Normal muscle strength in the upper and lower extremities Skin: Normal skin turgor with no skin ulcers or lesions noted. Current Medications: Current Medications Sig/Lisa Start time Last Medication Dose Route Stop Time Status Admin Acetaminophen 650 MG Q6P PRN 07/24 0145 AC PO Acetaminophen/ 1 TAB Q6P PRN 02/04 0145 AC Hydrocodone Bitart PO Albuterol Sulfate 3 ML TID 07/24 1600 AC 07/26 INH 1428 Ampicillin Sodium/ 1,500 MG Q6 07/24 0600 AC 07/26 Sulbactam Sodium IV 1202 Sodium Chloride 100 ML Aspirin 325 MG DAILY 07/25 1000 AC 07/26 PO 1017 Atorvastatin Calcium 40 MG 1700 02 1700 AC 07/25 PO 1758 Clopidogrel Bisulfate 75 MG DAILY 07/24 1509 AC 07/26 PO 1017 Heparin Sodium/ 25,000 UNIT Q24H 07/24 1530 AC 07/25 Dextrose IV 1758 Dextrose/Water 500 ML Hydromorphone HCl 0.5 MG Q4P PRN 07/24 0145 AC IV Insulin Human Regular 0 Q6 07/24 0154 AC 07/26 SC 1203 Ipratropium [place] 2.5 ML TID 07/25 1600 AC 07/26 INH 1427 Metoclopramide HCl 10 MG ONCE ONE 07/26 0930 DC 07/26 IV 07/26 0931 1016 Metoprolol Tartrate 12.5 MG BID 07/24 2200 AC 07/26 PO 1017 Nitroglycerin 0.5 GM Q6 07/24 2002 AC 07/26 TOP 1203 Pantoprazole Sodium 40 MG DAILY 07/26 1000 AC 07/26 IV 1016 Patient Medication 1 UNIT ONE NR 07/26 0900 MT Teaching ED 07/26 1500 Results Last 48 Hrs of Labs/Mics: Laboratory Tests 07/26/16 1555: APTT Pending 07/26/16 0335: Anion Gap 8, Estimated GFR > 60, Glucose 70, Calcium 8.1 L, Phosphorus 2.9, Magnesium 2.2, Total Bilirubin 0.6, AST 73 H, ALT 31, Albumin 2.3 L, APTT 58 H, CBC w Diff MAN DIFF ORDERED, RBC 3.00 L, MCV 91.2, MCH 30.1, RDW 14.4, MPV 10.2, Gran % 91.4 H, Lymphocytes % 2.0 L, Monocytes % 6.4, Eosinophils % 0.1, Basophils % 0.1, Absolute Granulocytes 16.5 H, Segmented Neutrophils 80 H, Band Neutrophils 4, Absolute Lymphocytes 0.4 L, Lymphocytes 8 L, Monocytes 8, Absolute Monocytes 1.1 H, Absolute Eosinophils 0, Absolute Basophils 0, Platelet Estimate ADEQUATE, Polychromasia 1+, Hypochromic-Microcytic 1+, PUBS MCHC 33.0 07/25/16 1533: Anion Gap 10, Estimated GFR 48 L, BUN/Creatinine Ratio 28.6 H, APTT 58 H, CBC w Diff NO MAN DIFF REQ, RBC 3.08 L, MCV 91.8, MCH 29.9, RDW 14.4, MPV 10.3, Gran % 90.9 H, Lymphocytes % 3.5 L, Monocytes % 5.6, Eosinophils % 0, Basophils % 0 L, Absolute Granulocytes 15.5 H, Absolute Lymphocytes 0.6 L, Absolute Monocytes 1.0 H, Absolute Eosinophils 0, Absolute Basophils 0, PUBS MCHC 32.6 L 07/25/16 1025: Anion Gap 11, Estimated GFR 52 L, Glucose 301 H, Calcium 8.1 L, Phosphorus 3.8, Magnesium 2.3, Total Bilirubin 0.6, AST 40, ALT 20 L, Albumin 2.8 L, APTT 48 H 07/25/16 0620: Anion Gap 8, Estimated GFR > 60, BUN/Creatinine Ratio 35.0 H, Magnesium 2.2 07/25/16 0425: pH 7.37, pCO2 41, pO2 67 L, HCO3 23, ABG O2 Sat (Measured) 91.0 L, P-50 (Temp Corrected) Y, Carboxyhemoglobin 0.1 L, O2 Concentration % 60%, Temperature 98.0 , O2 Delivery Method PRB, Phlebotomy Draw Site RIGHT RADIAL 07/25/16 0210: Anion Gap 11, Estimated GFR > 60, BUN/Creatinine Ratio 33.3 H, Magnesium 3.7 H , Troponin I 0.96 *H 07/24/16 2220: APTT 59 H 07/24/16 1940: Troponin I 1.34 *H 07/24/16 1940: Anion Gap 6, Estimated GFR > 60, BUN/Creatinine Ratio 33.3 H, Magnesium 1.5 L 07/24/16 1725: Lactic Acid 3.3 H Microbiology 07/25 0900 UPPER RESP: Surveillance Culture - COMP Assessment/Plan Assessment/Plan assessment: 1. Hypoxemic respiratory failure 2. Possible aspiration pneumonia 3. Non ST-elevation myocardial infarction, with plan for conservative medical management 4. Chronic left pleural effusion Plan: * Continue IV antibiotics * Continue statin therapy * Continue metoprolol * Continue aspirin and Plavix Continue telemetry? Yes
[2016-07-26 17:31] LABS: PTT 47 SEC (25-37)
--- NOTE | 2016-07-26 22:00 | NUR ---
Patient is found to be hypotensive. HR is in 120's but manual BP's are 80's/50's. Nitro patch is removed from patient, and metoprolol is held at this time. Dr. Johnson is made aware. It is also noted at this time that patient's urine output has steadily decresed to about 5ml/hr for [address] Johnson aware. Due to patient's low EF and intolerance to IV fluids, decision is made to give 500ml of IV fluids at 50ml/hr as tolerated by the patient. Will cont to closely monitor this patient.
[2016-07-27] VITALS: BP 80/52
[2016-07-27 01:24] LABS: PTT 72 SEC (25-37)
[2016-07-27 05:02] LABS: ABSOLUTE BASOPHIL COUNT 0 /CUMM (0.0-0.2); ABSOLUTE EOSINOPHIL COUNT 0 /CUMM (0.0-0.7); ABSOLUTE GRANULOCYTE CT 20.2 /CUMM (1.4-6.5); ABSOLUTE LYMPH COUNT 0.4 /CUMM (1.2-3.4); ABSOLUTE MONOCYTE COUNT 1.4 /CUMM (0.10-0.60); BASOPHIL % 0 % (0.0-2.0); EOSINOPHIL % 0 % (0-5); GRANULOCYTE % 92.1 % (42.2-75.2); HEMATOCRIT 26.8 % (42-52); MEAN CORPUSCULAR HGB 29.7 PG (27.0-31.0); MEAN CORPUSCULAR HGB CONC 32.7 G/DL (33.0-37.0); MEAN CORPUSCULAR VOLUME 90.8 FL (80.0-94.0); MEAN PLATELET VOLUME 10.8 FL (7.4-10.4); PLATELET COUNT 305 /CUMM (130-400); RBC DISTRIBUTION WIDTH 14.8 % (11.5-14.5); RED BLOOD CELL CT 2.95 /CUMM (4.70-6.10); WHITE BLOOD CELL COUNT 21.9 /CUMM (4.8-10.8)
--- NOTE | 2016-07-27 07:39 | PN- Resident CRCU ---
Subjective HPI/CRCU Issues: He was seen and examined. He is laying on bed not on acute distress. He did not sleep well last night otherwise no current complaints. He lung sounds more congested. Yesterday patient was running heartrate over 110-122(sinus tachycardia) respiratory rate was running in the upper 30s lower 40s. Patient blood pressure was as low as 80/50 during the last shift last night. He is saturating well ( > 92%) on 7 L through nasal cannula. Objective Vital Signs & I&O Last 8 Hrs of Vitals and I&O: Intake & Output 07/27 1600 07/27 0800 07/27 0000 Intake Total 544 243 Output Total 45 123 Balance 499 120 Intake, IV 544 143 Intake, Tube 100 Irrigant Number 1 Bowel Movements Output, Urine 45 123 Laboratory Tests 07/27 07/27 07/26 0430 0030 1555 Chemistry Sodium (137 - 145 mmol/L) 154 H Potassium (3.5 - 5.1 mmol/L) 3.5 Chloride (98 - 107 mmol/L) 114 H Carbon Dioxide (22 - 30 mmol/L) 28 Anion Gap (5 - 16) 12 BUN (9 - 20 mg/dL) 38 H Creatinine (0.7 - 1.2 mg/dL) 1.2 Estimated GFR (>60 ml/min) 57 L Glucose (65 - 99 mg/dL) 181 H Calcium (8.4 - 10.2 mg/dL) 8.5 Phosphorus (2.5 - 4.5 mg/dL) 4.2 Magnesium (1.6 - 2.3 mg/dL) 2.4 H Total Bilirubin (0.2 - 1.3 mg/dL) 1.2 AST (17 - 59 U/L) 49 ALT (21 - 72 U/L) 29 Albumin (3.5 - 5.0 g/dL) 2.6 L Coagulation APTT (25 - 37 SEC) 72 H 47 H Hematology CBC w Diff MAN DIFF ORDERED WBC (4.8 - 10.8 /CUMM) 21.9 H RBC (4.70 - 6.10 /CUMM) 2.95 L Hgb (14.0 - 18.0 G/DL) 8.8 L Hct (42 - 52 %) 26.8 L MCV (80.0 - 94.0 FL) 90.8 MCH (27.0 - 31.0 PG) 29.7 RDW (11.5 - 14.5 %) 14.8 H Plt Count (130 - 400 /CUMM) 305 MPV (7.4 - 10.4 FL) 10.8 H Gran % (42.2 - 75.2 %) 92.1 H Lymphocytes % (20.5 - 51.1 %) 1.7 L Monocytes % (1.7 - 9.3 %) 6.2 Eosinophils % (0 - 5 %) 0 Basophils % (0.0 - 2.0 %) 0 L Absolute Granulocytes (1.4 - 6.5 /CUMM) 20.2 H Segmented Neutrophils (42.2 - 75.2 %) 91 H Absolute Lymphocytes (1.2 - 3.4 /CUMM) 0.4 L Lymphocytes (20.5 - 51.1 %) 5 L Monocytes (1.7 - 9.3 %) 4 Absolute Monocytes (0.10 - 0.60 /CUMM) 1.4 H Absolute Eosinophils (0.0 - 0.7 /CUMM) 0 Absolute Basophils (0.0 - 0.2 /CUMM) 0 Nucleated RBCs (0.0 - 0.0 /100WBC) 1 H Platelet Estimate (ADEQUATE) ADEQUATE Polychromasia 1+ Hypochromic-Microcytic 1+ Poikilocytosis 2+ Ovalocytes 1+ Stomatocytes 1+ PUBS MCHC (33.0 - 37.0 G/DL) 32.7 L Other Body Source Fld Total RBCs Counted (%) 100 Exam General Appearance: no apparent distress, alert, awake, thin Head: atraumatic, normal appearance Respiratory: decreased breathing sound over both lungs. crackles over both lungs Cardiovascular: regular rate/rhythm Gastrointestinal: soft, non-tender Extremities: +1 bilateral lower extremity edema Current Medications: Current Medications Sig/Lisa Start time Last Medication Dose Route Stop Time Status Admin Acetaminophen 650 MG Q6P PRN 07/24 0145 AC PO Acetaminophen/ 1 TAB Q6P PRN 07/24 0145 AC Hydrocodone Bitart PO Albuterol Sulfate 3 ML TID 07/24 1600 AC 07/27 INH 0809 Ampicillin Sodium/ 1,500 MG Q6 07/24 0600 AC 07/27 Sulbactam Sodium IV 0551 Sodium Chloride 100 ML Aspirin 325 MG DAILY 07/25 1000 AC 07/26 PO 1017 Atorvastatin Calcium 40 MG 1700 02/05 1700 AC 02/ PO 1817 Clopidogrel Bisulfate 75 MG DAILY / 1509 AC 07/26 PO 1017 Heparin Sodium 2,000 UNIT ONCE ONE 07/26 1830 DC 07/26 (Porcine) IV 07/26 1831 1843 Heparin Sodium 5,000 UNIT .STK-MED ONE 07/26 1822 DC (Porcine) IV 07/26 1823 Heparin Sodium/ 25,000 UNIT Q24H / 1530 AC 07/26 Dextrose IV 2131 Dextrose/Water 500 ML Hydromorphone HCl 0.5 MG Q4P PRN 07/24 0145 AC IV Insulin Human Regular 0 Q6 07/24 0154 AC 07/27 SC 0551 Ipratropium [place] 2.5 ML TID 07/25 1600 AC 07/27 INH 0808 Metoclopramide HCl 10 MG ONCE ONE 07/27 0800 DC 07/27 IV 07/27 0801 0815 Metoprolol Tartrate 12.5 MG BID 07/24 2200 AC 07/26 PO 1017 Nitroglycerin 0.5 GM Q6 07/24 2002 AC 07/26 TOP 1834 Pantoprazole Sodium 40 MG DAILY 07/26 1000 AC 07/26 IV 1016 Patient Medication 1 UNIT ONE NR 07/26 0900 RI Teaching ED 07/26 1500 Potassium Chloride 10 MEQ Q1H 07/27 0845 AC 07/27 IV 07/27 1046 0949 Sodium Chloride 500 ML .Q10H 07/26 2245 DC 07/26 IV 07/27 0844 2300 Impression/Plan Impression/Problem List Impression: Impression/Plan: Patient was admitted from July 15 to July 16, for aspiration pneumonia and worsening of shortness of breath. Earlier he was admitted for aspiration pneumonia with parapneumonic effusion S/P thoracentesis. He was discharged to F. He completed antibiotics , underwent repeat thoracentesis (Jul 19, 320 mL of slightly turbid bloody, non-clotting fluid was aspirated) while in ECF and to his normal state of health. Patient was brought to [facility] after he started choking on some liquids. Assessment and Plan: 1.Acute hypoxic respiratory failure: Probably secondary to aspiration pneumonia, Patient was continued on IV unasyn, WBC 21 today from 18 yesterday. WBCs is continuously going up. She'll still hypotensive(family is refusing central line and pressors). He's tachycardia. Patient is not improving on the current antibiotic regimen, for which ID was consulted. We will follow ID recommendation regarding the new antibiotic * We will switch Unasyn 1500 every 6 IV to what ID recommends * will continue pulmonary toilet * nebulization with albuterol * continue oxygen support. * Incentive spirometry * His feeding tube is on hold (aspiration precautions) 2.pleural effusion: Recent thoracentesis done on July 19, 320 mL of slightly turbid bloody, non- clotting fluid was aspirated. His pleural effusions have been chronic * He may consider thoracocentesis 3.NSTEMI Patient had elevated troponins with the highest being 2.65 now it's 0.96, he was started on Heprin drip, cardiology consult. He was also started on aspirin and plavix. No plan for cath right now due to his unstable clinical condition. * Continue heparin drip * Continue aspirin and Plavix * We will continue statin * We'll follow cardiology recommendations 4. Diabetes * Insulin sliding scale * ACCcheck 5.NICK At some point during this admission creatinine start to rise, with highest being 1.4. yesterday his Cr was 0.9 but increased to 1.2 today. * We will repeat renal function daily 6. Hyperkalemia/Hypokalemia Patient initially presented with hyperkalemia up to 6.3. It was treated after which with potassium started to drop even with repletion. Today his potassium is 3.5. * Patient potassium will be repleted * Repeat BEP daily Diet nothing by mouth DVT ppx- Patient on heprin drip Code status DNR/DNI Problem List: 1. Dysphagia 2. Diabetes mellitus 3. GERD 4. Elevated troponin 5. Osteoarthritis Pain Ratin Tomorrow's Labs & Rationales: cbc and ICU Plan DVT/Prophylaxis: mechanical, pharmacological Code Status: Do Not Intubate
[2016-07-27 08:00] VITALS: BP 94/64
--- NOTE | 2016-07-27 08:00 | NUR ---
speech therapy: Pt was transferred to ICU 07/25/16 secondary to desaturation. Chart reviewed. Please see swallow eval from 07/24. Pt not appropriate for po intake at this time. Will d/c skilled ST per protocol due to ICU transfer, please re-consult if indicated.
--- NOTE | 2016-07-27 08:15 | NUR ---
PATIENT C/O NAUSEA. NO VOMITING/HEAVING NOTED. DR. SON AWARE, ORDERED 10 MG IV REGLAN REGLAN GIVEN W/ GOOD EFFECT. CONTINUING TO MONITOR. PATIENT REMAINING NPO.
--- NOTE | 2016-07-27 08:47 | RADIOLOGY REPORT ---
EXAMINATION: XR PORTABLE CHEST CLINICAL INFORMATION: Chronic pleural effusion. Presumptive diagnosis: Aspiration pneumonia, effusion. COMPARISON: Portable chest 07/25/2016. TECHNIQUE: Portable AP 75 degree upright view of the chest was obtained. FINDINGS: There is worsening dense consolidation in the right mid and lower lung field. There is also slight worsening consolidation in the left perihilar region. There is persistent consolidation in the left retrocardiac region. A small right pleural effusion may be slightly increased, tracking into the minor fissure. A moderate left pleural effusion is not significantly changed. There are stable degenerative changes in both shoulders. IMPRESSION: Worsening consolidation in both lungs, particularly on the right. Worsening small right pleural effusion. Unchanged moderate left pleural effusion.
--- NOTE | 2016-07-27 10:00 | PN- CRCU ---
Subjective HPI/Critical Care Issues: pt seen and examined high flow o2 fio2 45% wbc 21.9 aspiration pna chronic effusion worsening consolidation bilaterally, unchanged left pleural effusion Objective Current Medications: Current Medications Sig/Lisa Start time Last Medication Dose Route Stop Time Status Admin Acetaminophen 650 MG Q6P PRN 07/24 0145 AC PO Acetaminophen/ 1 TAB Q6P PRN 07/24 0145 AC Hydrocodone Bitart PO Albuterol Sulfate 3 ML TID / 1600 AC 07/27 INH 0809 Ampicillin Sodium/ 1,500 MG Q6 07/24 0600 AC 07/27 Sulbactam Sodium IV 0551 Sodium Chloride 100 ML Aspirin 325 MG DAILY 02 1000 AC 02 PO 1017 Atorvastatin Calcium 40 MG 1700 07/25 1700 AC 07/26 PO 1817 Clopidogrel Bisulfate 75 MG DAILY / 1509 AC 07/26 PO 1017 Heparin Sodium 2,000 UNIT ONCE ONE 07/26 1830 DC 07/26 (Porcine) IV 07/26 1831 1843 Heparin Sodium 5,000 UNIT .STK-MED ONE 07/26 1822 DC (Porcine) IV 07/26 1823 Heparin Sodium/ 25,000 UNIT Q24H / 1530 AC 07/26 Dextrose IV 2131 Dextrose/Water 500 ML Hydromorphone HCl 0.5 MG Q4P PRN 07/24 0145 AC IV Insulin Human Regular 0 Q6 / 0154 AC 07/27 SC 0551 Ipratropium [place] 2.5 ML TID / 1600 AC 07/27 INH 0808 Metoclopramide HCl 10 MG ONCE ONE 07/27 0800 DC 07/27 IV 07/27 0801 0815 Metoprolol Tartrate 12.5 MG BID 07/24 2200 AC 02 PO 1017 Nitroglycerin 0.5 GM Q6 07/24 2002 AC 07/26 TOP 1834 Pantoprazole Sodium 40 MG DAILY / 1000 AC 07/26 IV 1016 Patient Medication 1 UNIT ONE NR 07/26 0900 DC Teaching ED 07/26 1500 Potassium Chloride 10 MEQ Q1H 07/27 0845 AC 07/27 IV 07/27 1046 0949 Sodium Chloride 500 ML .Q10H 07/26 2245 DC 07/26 IV 07/27 0844 2300 Vital Signs & I&O Last 24 Hrs of Vitals and I&O: Vital Signs Date Time Temp Pulse Resp B/P Pulse O2 O2 Flow FiO2 Ox Delivery Rate 07/27 0845 92 Nasal 45% Cannula 07/27 0843 88 Nasal 7.0L Cannula 07/27 08 98.9 112 40 94/64 89 Nasal 7.0L Cannula 07/27 0800 89 Nasal 7.0L Cannula 07/27 0400 94 Nasal 7.0L Cannula 07/27 0000 94 Nasal 7.0L Cannula 07/27 0000 98.0 116 40 80/52 94 Nasal 7.0L Cannula 07/26 2200 120 84/56 07/26 2000 92 Nasal 7.0L Cannula 07/26 1744 92 Nasal 7.0L Cannula 07/26 1600 92 Nasal 7.0L Cannula 07/26 1600 97.9 118 31 100/60 92 Nasal 7.0L Cannula 07/26 1431 93 Nasal 6.0L Cannula 07/26 1200 95 Nasal 40% Cannula 07/26 1153 93 Nasal 40% Cannula 07/26 1017 106 109/61 Intake & Output 07/27 1600 07/27 0800 07/27 0000 Intake Total 544 243 Output Total 45 123 Balance 499 120 Intake, IV 544 143 Intake, Tube 100 Irrigant Number 1 Bowel Movements Output, Urine 45 123 Exam Other Physical Findings: gen awake and alert heent high flow o2 cvs s1, s2, distand sounds lungs diminished more so on left but bibasilar abd soft bs+ ext without edema Results Last 24 Hrs of Lab Results: Laboratory Tests 07/27/16 0430: Anion Gap 12, Estimated GFR 57 L, Glucose 181 H, Calcium 8.5, Phosphorus 4.2, Magnesium 2.4 H, Total Bilirubin 1.2, AST 49, ALT 29, Albumin 2.6 L, CBC w Diff MAN DIFF ORDERED, RBC 2.95 L, MCV 90.8, MCH 29.7, RDW 14.8 H, MPV 10.8 H , Gran % 92.1 H, Lymphocytes % 1.7 L, Monocytes % 6.2, Eosinophils % 0, Basophils % 0 L, Absolute Granulocytes 20.2 H, Segmented Neutrophils 91 H, Absolute Lymphocytes 0.4 L, Lymphocytes 5 L, Monocytes 4, Absolute Monocytes 1.4 H, Absolute Eosinophils 0, Absolute Basophils 0, Nucleated RBCs 1 H, Platelet Estimate ADEQUATE, Polychromasia 1+, Hypochromic-Microcytic 1+, Poikilocytosis 2+, Ovalocytes 1+, Stomatocytes 1+, PUBS MCHC 32.7 L, Fld Total RBCs Counted 100 07/27/16 0030: APTT 72 H 07/26/16 1555: APTT 47 H Impression/Plan Impression/Plan Impression/Plan: Impression 89 year old man -hypoxemic respiratory failure, ?aspiration pna -prostate ca hx -dnr/dni -chronic left pleural effusion, exudative, but cytology negative for malignancy -leukocytosis Plan -aspiration precautions -cardiology f/u -cont abx -swallowing evaluation/tube feeding -given worsening consolidation will consider a repeat diagnostic and therapeutic thoracentesis DVT prophylaxis at all times TTS 40 min Code Status: Do Not Intubate
--- NOTE | 2016-07-27 10:53 | NUR ---
RECEIVED PATIENT @ 0800 A&OX3, FELICIANO, FOLLOWS COMMANDS, ST ON THE CARDIAC 110S, SBP=90S, NO CHEST PAIN. NS @ 50 MLS/HR AND HEPARIN GTT RUNNING AT 16 U/KG/HR OR 21 MLS/HR. SBP=80S-90S. POTASSIUM IS 3.5. REPLETING W/ 3 RUNS OF 10 MEQ. PATIENT ON 7L NASAL CANNULA SATTING 88-89%, RR: 38-42. RHONCHI AND CRACKLES AUSCULTATED THROUGHOUT. PATIENT PLACED ON 45% HIGH FLOW O2 AROUND 0817. PATIENT SELF SUCTIONED W/ THE [place] - SCANT/THICK/YELLOW SECRETIONS. ABDOMEN SOFT/NONTENDER, +BS. PEG TUBE TO LUQ CLAMPLED. PT C/O NAUSEA, SEE RN NOTE. NO STOOL INCONTINENCE NOTED. BRIEF IN PLACE, SKIN INTACT, GARCIA IN PLACE DRAINING SCANT CONCENTRATED ABELARDO URINE, APPROX. 3-[address] SON AND DR. SIMON AWARE.
--- NOTE | 2016-07-27 12:41 | PN- Cardiology ---
Subjective Subjective: The patient continues to be short of breath. No chest pain. No palpitations. No diaphoresis. No nausea or vomiting. Objective Vital Signs and I&Os Vital Signs Date Time Temp Pulse Resp B/P Pulse O2 O2 Flow FiO2 Ox Delivery Rate 07/27 1137 112 90/57 07/27 1133 93 Nasal 45% Cannula 07/27 0845 92 Nasal 45% Cannula 07/27 0843 88 Nasal 7.0L Cannula 07/27 08 98.9 112 40 94/64 89 Nasal 7.0L Cannula 07/27 0800 89 Nasal 7.0L Cannula 07/27 0400 94 Nasal 7.0L Cannula 07/27 0000 94 Nasal 7.0L Cannula 07/27 0000 98.0 116 40 80/52 94 Nasal 7.0L Cannula 07/26 2200 120 84/56 07/26 2000 92 Nasal 7.0L Cannula 07/26 1744 92 Nasal 7.0L Cannula 07/26 1600 92 Nasal 7.0L Cannula 07/26 1600 97.9 118 31 100/60 92 Nasal 7.0L Cannula 07/26 1431 93 Nasal 6.0L Cannula Intake & Output 07/27 1600 07/27 0800 07/27 0000 07/26 1600 07/26 0800 02 0000 Intake Total 544 243 355 943 147.2 Output Total 45 123 250 305 285 Balance 499 120 105 638 -137.8 Intake, IV 544 143 255 943 147.2 Intake, Oral 0 0 Intake, Tube 100 Feeding Intake, Tube 100 Irrigant Number 1 6 5 Bowel Movements Output, Urine 45 123 250 305 285 Patient 145 lb Weight Physical Exam: Gen: The patient is in no acute distress HEENT: Normal nose, ears, and oropharynx. Pupils equal bilaterally. Conjunctiva normal. Neck: Supple with no JVD, no masses, and no thyromegaly Lungs: Decreased breath sounds with normal respiratory effort Heart: RRR, S1, S2, 2-3/6 systolic murmur. No peripheral edema, 2+ pulses in the lower extremities bilaterally Abdomen: Soft, nontender, no masses. No hepatomegaly. No splenomegaly Extremities: No clubbing or cyanosis. Normal muscle strength in the upper and lower extremities Skin: Normal skin turgor with no skin ulcers or lesions noted. Current Medications: Current Medications Sig/Lisa Start time Last Medication Dose Route Stop Time Status Admin Acetaminophen 650 MG Q6P PRN 02/ 0145 AC PO Acetaminophen/ 1 TAB Q6P PRN 07/24 0145 AC Hydrocodone Bitart PO Albuterol Sulfate 3 ML TID 02/ 1600 AC 07/27 INH 0809 Ampicillin Sodium/ 1,500 MG Q6 / 0600 AC 02 Sulbactam Sodium IV 1139 Sodium Chloride 100 ML Aspirin 325 MG DAILY 02/ 1000 AC 02 PO 1137 Atorvastatin Calcium 40 MG 1700 02/05 1700 AC 02 PO 1817 Clopidogrel Bisulfate 75 MG DAILY 02/ 1509 AC 02 PO 1137 Heparin Sodium 2,000 UNIT ONCE ONE 07/26 1830 DC 07/26 (Porcine) IV 07/26 1831 1843 Heparin Sodium 5,000 UNIT .STK-MED ONE 07/26 1822 DC (Porcine) IV 07/26 1823 Heparin Sodium/ 25,000 UNIT Q24H / 1530 AC 07/26 Dextrose IV 2131 Dextrose/Water 500 ML Hydromorphone HCl 0.5 MG Q4P PRN 07/24 0145 AC IV Insulin Human Regular 0 Q6 / 0154 AC 07/27 SC 1141 Ipratropium [place] 2.5 ML TID 07/25 1600 AC 07/27 INH 0808 Metoclopramide HCl 10 MG ONCE ONE 07/27 0800 DC 07/27 IV 07/27 0801 0815 Metoprolol Tartrate 12.5 MG BID / 2200 AC 07/27 PO 1137 Nitroglycerin 0.5 GM Q6 07/24 2002 AC 07/26 TOP 1834 Pantoprazole Sodium 40 MG DAILY 02 1000 AC 07/27 IV 1137 Patient Medication 1 UNIT ONE NR 07/26 0900 ND Teaching ED 07/26 1500 Potassium Chloride 10 MEQ Q1H 07/27 0845 DC 07/27 IV 07/27 1046 1045 Sodium Chloride 500 ML .Q10H 07/26 2245 DC 07/26 IV 07/27 0844 2300 Results Last 48 Hrs of Labs/Mics: Laboratory Tests 07/27/16 1200: APTT Pending 07/27/16 0430: Anion Gap 12, Estimated GFR 57 L, Glucose 181 H, Calcium 8.5, Phosphorus 4.2, Magnesium 2.4 H, Total Bilirubin 1.2, AST 49, ALT 29, Albumin 2.6 L, CBC w Diff MAN DIFF ORDERED, RBC 2.95 L, MCV 90.8, MCH 29.7, RDW 14.8 H, MPV 10.8 H , Gran % 92.1 H, Lymphocytes % 1.7 L, Monocytes % 6.2, Eosinophils % 0, Basophils % 0 L, Absolute Granulocytes 20.2 H, Segmented Neutrophils 91 H, Absolute Lymphocytes 0.4 L, Lymphocytes 5 L, Monocytes 4, Absolute Monocytes 1.4 H, Absolute Eosinophils 0, Absolute Basophils 0, Nucleated RBCs 1 H, Platelet Estimate ADEQUATE, Polychromasia 1+, Hypochromic-Microcytic 1+, Poikilocytosis 2+, Ovalocytes 1+, Stomatocytes 1+, PUBS MCHC 32.7 L, Fld Total RBCs Counted 100 07/27/16 0030: APTT 72 H 07/26/16 1555: APTT 47 H 07/26/16 0335: Anion Gap 8, Estimated GFR > 60, Glucose 70, Calcium 8.1 L, Phosphorus 2.9, Magnesium 2.2, Total Bilirubin 0.6, AST 73 H, ALT 31, Albumin 2.3 L, APTT 58 H, CBC w Diff MAN DIFF ORDERED, RBC 3.00 L, MCV 91.2, MCH 30.1, RDW 14.4, MPV 10.2, Gran % 91.4 H, Lymphocytes % 2.0 L, Monocytes % 6.4, Eosinophils % 0.1, Basophils % 0.1, Absolute Granulocytes 16.5 H, Segmented Neutrophils 80 H, Band Neutrophils 4, Absolute Lymphocytes 0.4 L, Lymphocytes 8 L, Monocytes 8, Absolute Monocytes 1.1 H, Absolute Eosinophils 0, Absolute Basophils 0, Platelet Estimate ADEQUATE, Polychromasia 1+, Hypochromic-Microcytic 1+, PUBS MCHC 33.0 07/25/16 1533: Anion Gap 10, Estimated GFR 48 L, BUN/Creatinine Ratio 28.6 H, APTT 58 H, CBC w Diff NO MAN DIFF REQ, RBC 3.08 L, MCV 91.8, MCH 29.9, RDW 14.4, MPV 10.3, Gran % 90.9 H, Lymphocytes % 3.5 L, Monocytes % 5.6, Eosinophils % 0, Basophils % 0 L, Absolute Granulocytes 15.5 H, Absolute Lymphocytes 0.6 L, Absolute Monocytes 1.0 H, Absolute Eosinophils 0, Absolute Basophils 0, PUBS MCHC 32.6 L Microbiology 07/25 1400 URINE ROUT: Urine Culture - COMP Assessment/Plan Assessment/Plan Assessment: 1. Hypoxemic respiratory failure 2. Possible aspiration pneumonia 3. Non ST-elevation myocardial infarction, with plan for conservative medical management 4. Chronic left pleural effusion Plan: * Continue IV antibiotics * Continue statin therapy * Continue metoprolol * Continue aspirin and Plavix * Agree with plan for thoracentesis Continue telemetry? Yes
--- NOTE | 2016-07-27 13:05 | Cons- Infect Disease ---
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, status post placement of a PEG tube 5 years prior to admission, hospitalized 2 weeks prior to admission with nausea and vomiting and found to have right middle lobe and right lower lobe densities on the CT scan of the abdomen and pelvis, treated with Unasyn, with a left thoracentesis revealing an exudate, discharged to a rehabilitation facility after 1 week on Augmentin to complete a 10 day course of antibiotics, with a repeat left thoracentesis performed 4 days prior to admission, again revealing an exudate, with almost 500,000 red blood cells, readmitted on July 23 after he was sent to the emergency room with the acute onset of cough and shortness of breath after drinking water, which had been recommended after a follow-up swallowing study at his facility. On admission he was afebrile with an O2 sat of 77% on room air. Laboratory data revealed a white blood cell count of 22,000, BUN/creatinine 25 and 0.9, alk phosphatase 159 , ABG 7.33/42/59 on 6 L. Chest x-ray revealed bibasilar densities. He was begun on Unasyn. His troponin increased, and he was evaluated by Cardiology, who diagnosed a non-STEMI and began Heparin. On July 25 he became more hypoxic with a low-grade fever of 100.6 and he was transferred to the ICU. He has been afebrile since. His white blood cell count, however, has remained elevated and he has continued to be hypoxic, requiring high flow oxygen. At present he does note mild shortness of breath but denies any cough or chest pain. Allergies/Medications Allergies: Coded Allergies: NO KNOWN ALLERGIES (07/15/16) Home Med List: Acetaminophen (Q-Pap) 325 MG TABLET 2 TAB PEG Q4H PRN PAIN/TEMP>101 (Reported ) Acetaminophen (Acephen) 650 MG SUPP.RECT 1 SUPP MO Q4H PRN PAIN/TEMP>101 ( Reported) Insulin Glargine,Hum.rec.anlog (Lantus Solostar) 100 UNIT/ML (3 ML) INSULN.PEN 10 UNIT SC QHS DIABETES (Reported) Lactobacillus Acidophilus (Acidophilus) 1 EACH CAPSULE 1 CAP PEG BID PROBIOTIC (Reported) Magnesium Hydroxide (Milk Of Magnesia) 400 MG/5 ML ORAL.SUSP 30 ML PEG PRN CONSTIPATION (Reported) Metformin HCl 500 MG TABLET 1 TAB PEG BID DIABETES (Reported) Na Phos,M-B/Na Phos,Di-Ba (Fleet Enema) 19 GRAM-7 GRAM/118 ML ENEMA 1 E RC PRN CONSTIPATION (Reported) Nut.tx.gluc.intoler,Lac-Fr,Soy (Glucerna 1.2 Daniele) 237 ML LIQUID 70 ML PEG AD NUTRITIONAL SUPPLEMENT (Reported) Pioglitazone HCl 30 MG TABLET 1 TAB PEG DAILY DM (Reported) Saliva Substitute Combo No.9 (Biotene) 473 ML MOUTHWASH 15 ML PO 4XDAILY ORAL RINSE (Reported) Trimethobenzamide HCl (Tigan) 300 MG CAPSULE 1 TAB PO TIDPRN PRN NAUSEA Past History Travel History Traveled to [place] past 21 day No Medical History Blood Transfusion Hx: No Neurological: peripheral neuropathy, seizure, ? 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 Extended Care Facility Services at Home: Home Health Aide, Nursing Primary Language: Korean Smoking Status: Former Smoker (Pipe smoker) ETOH Use: Former User Living Will? no Functional Ability ADLs Independent: dressing. Ambulation: walker IADLs Needs Assist: shopping, housework, finances, food prep, telephone, transportation, medication admin. Review of Systems Review of Systems All Other Systems: Reviewed and Negative Exam & Diagnostic Data Last 24 Hrs of Vital Signs/I&O Vital Signs Date Time Temp Pulse Resp B/P Pulse O2 O2 Flow FiO2 Ox Delivery Rate 07/27 1137 112 90/57 07/27 1133 93 Nasal 45% Cannula 07/27 0845 92 Nasal 45% Cannula 07/27 0843 88 Nasal 7.0L Cannula 07/27 799 98.9 112 40 94/64 89 Nasal 7.0L Cannula 07/27 0800 89 Nasal 7.0L Cannula 07/27 0400 94 Nasal 7.0L Cannula 07/27 0000 94 Nasal 7.0L Cannula 07/27 0000 98.0 116 40 80/52 94 Nasal 7.0L Cannula 07/26 2200 120 84/56 07/26 2000 92 Nasal 7.0L Cannula 07/26 1744 92 Nasal 7.0L Cannula 07/26 1600 92 Nasal 7.0L Cannula 07/26 1600 97.9 118 31 100/60 92 Nasal 7.0L Cannula 07/26 1431 93 Nasal 6.0L Cannula Intake & Output 07/27 0000 Intake Total 544 243 Output Total 45 123 Balance 499 120 Intake, IV 544 143 Intake, Tube 100 Irrigant Number 1 Bowel Movements Output, Urine 45 123 Physical Exam Other Physical Findings: He is awake and alert in mild respiratory distress, on high flow oxygen. He is afebrile. Skin reveals no rash. HEENT exam is negative. Neck is supple with no adenopathy. Lungs diffuse rhonchi bilaterally. Heart regular rhythm with no murmur. Abdomen is soft, mildly tender on palpation on the right side, with no guarding or rebound, with positive bowel sounds; PEG site with no inflammation. Back no CVA tenderness. Extremities no cyanosis, clubbing or edema. Neuro is without focality. Harris catheter is in place. Last 24 Hours of Lab Results: Laboratory Tests 07/27 07/27 07/26 0430 0030 1555 Chemistry Sodium (137 - 145 mmol/L) 154 H Potassium (3.5 - 5.1 mmol/L) 3.5 Chloride (98 - 107 mmol/L) 114 H Carbon Dioxide (22 - 30 mmol/L) 28 Anion Gap (5 - 16) 12 BUN (9 - 20 mg/dL) 38 H Creatinine (0.7 - 1.2 mg/dL) 1.2 Estimated GFR (>60 ml/min) 57 L Glucose (65 - 99 mg/dL) 181 H Calcium (8.4 - 10.2 mg/dL) 8.5 Phosphorus (2.5 - 4.5 mg/dL) 4.2 Magnesium (1.6 - 2.3 mg/dL) 2.4 H Total Bilirubin (0.2 - 1.3 mg/dL) 1.2 AST (17 - 59 U/L) 49 ALT (21 - 72 U/L) 29 Albumin (3.5 - 5.0 g/dL) 2.6 L Coagulation APTT (25 - 37 SEC) 72 H 47 H Hematology CBC w Diff MAN DIFF ORDERED WBC (4.8 - 10.8 /CUMM) 21.9 H RBC (4.70 - 6.10 /CUMM) 2.95 L Hgb (14.0 - 18.0 G/DL) 8.8 L Hct (42 - 52 %) 26.8 L MCV (80.0 - 94.0 FL) 90.8 MCH (27.0 - 31.0 PG) 29.7 RDW (11.5 - 14.5 %) 14.8 H Plt Count (130 - 400 /CUMM) 305 MPV (7.4 - 10.4 FL) 10.8 H Gran % (42.2 - 75.2 %) 92.1 H Lymphocytes % (20.5 - 51.1 %) 1.7 L Monocytes % (1.7 - 9.3 %) 6.2 Eosinophils % (0 - 5 %) 0 Basophils % (0.0 - 2.0 %) 0 L Absolute Granulocytes (1.4 - 6.5 /CUMM) 20.2 H Segmented Neutrophils (42.2 - 75.2 %) 91 H Absolute Lymphocytes (1.2 - 3.4 /CUMM) 0.4 L Lymphocytes (20.5 - 51.1 %) 5 L Monocytes (1.7 - 9.3 %) 4 Absolute Monocytes (0.10 - 0.60 /CUMM) 1.4 H Absolute Eosinophils (0.0 - 0.7 /CUMM) 0 Absolute Basophils (0.0 - 0.2 /CUMM) 0 Nucleated RBCs (0.0 - 0.0 /100WBC) 1 H Platelet Estimate (ADEQUATE) ADEQUATE Polychromasia 1+ Hypochromic-Microcytic 1+ Poikilocytosis 2+ Ovalocytes 1+ Stomatocytes 1+ PUBS MCHC (33.0 - 37.0 G/DL) 32.7 L Other Body Source Fld Total RBCs Counted (%) 100 Last 24 Hours of [place] Results: Blood cultures July 23 negative Rapid flu swab July 24 negative Urine culture July 25 negative Stool C. difficile July 26 pending Diagnostic Data Recent Imaging Findings: Chest x-ray July 27, recently reviewed, reveals worsening consolidation in the right mid and lower lung irwin and the left perihilar region with persistent consolidation in the left retrocardiac region; small right pleural effusion and moderate left pleural effusion Assessment/Plan Assessment/Plan Impression: This is an 89-year-old man with a history of motor neuron disease, with vocal cord paralysis causing oropharyngeal dysphagia, for which a PEG was placed, recently hospitalized with what was felt to be aspiration pneumonia, treated with a 10 day course of antibiotics (Unasyn, followed by Augmentin), readmitted on July 23 with the acute onset of cough and shortness of breath following ingestion of water, found initially to be afebrile with a leukocytosis and with chest x-ray read as unchanged, with the development of worsening respiratory distress, increasing bilateral densities on chest x-ray and persistent leukocytosis despite now 4 days of antibiotics. It appears that he may have aspirated prior to admission, with the development of bilateral pneumonia. As he was treated with Unasyn on his recent admission I am concerned about the possibility of resistant organisms, including MRSA, though his nares screen is negative for this, and gram-negative rods including Pseudomonas. Empyema is also possible, though his recent thoracentesis 4 days prior to admission did not suggest this. The etiology of his hemorrhagic pleural effusion is unclear, with cytology negative. Also noted is diarrhea, raising concern for C. difficile, which could also explain his leukocytosis, and an increasing sodium, which needs correction. Suggestion: 1. Consider CT of the chest 2. Attempt to obtain a sputum for culture 3. Urine for strep pneumo antigen and Legionella antigen 4. Follow-up stool for C. difficile 5. Correct hypernatremia 6. Discontinue Unasyn 7. Begin Vancomycin 1 g IV every 24 hours and Ceftazidime 1 g IV every 12 hours pending above Consult Acknowledgment - Thank you for your consult request.
[2016-07-27 13:13] LABS: PTT 85 SEC (25-37)
[2016-07-27 16:00] VITALS: BP 98/62
--- NOTE | 2016-07-27 16:03 | CT SCAN REPORT ---
EXAMINATION: CT CHEST, ABDOMEN AND PELVIS WITHOUT CONTRAST CLINICAL INFORMATION: Aspiration, cough, crackles, shortness of breath not responding to treatment with antibiotic. Abdominal tenderness, increased white blood cells, looking for source of infection in his abdominal cavity. COMPARISON: CT of the abdomen and pelvis 07/09/2016. CT of the chest 03/10/2011. TECHNIQUE: Contiguous axial thin section helical images of the chest, abdomen and pelvis were performed. The data set was reformatted in the coronal and sagittal planes and reviewed on an independent workstation. DLP: 392.31 mGy-cm. FINDINGS: LUNGS: There is severe worsening dense consolidation in both lungs, most prominent in the posterior aspects of the upper lobes and in most of the lower lobes. There is also patchy consolidation extending anteriorly in the lower lobes in particular. MEDIASTINUM: There is a nonspecific mildly enlarged precarinal lymph node measuring 1.1 cm in diameter. There are scattered thoracic aortic and coronary artery calcifications. PLEURA: There are small right and moderate left pleural effusions. AXILLA: No lymphadenopathy. LIVER, GALLBLADDER, BILIARY TREE: Normal. PANCREAS: Normal. SPLEEN: Normal. ADRENAL GLANDS AND KIDNEYS: Normal. URETERS AND BLADDER: The bladder is thick walled and decompressed by a Hraris catheter. BOWEL LOOPS: The small and large bowel are unremarkable. The appendix appears normal. There is a gastrostomy tube in place. ABDOMINAL WALL: Unremarkable. LYMPHOVASCULAR STRUCTURES: Normal. PELVIC VISCERA: Unremarkable. BONES: There are stable degenerative changes in the spine and both hips. ADDITIONAL FINDINGS: None. IMPRESSION: 1. Dense consolidation throughout both lungs, involving the lower lobes more than the upper lobes, suspicious for bilateral pneumonia. 2. Small right and moderate left pleural effusions . 3. No inflammatory processes in the abdomen or pelvis.
--- NOTE | 2016-07-27 17:05 | NUR ---
1600: Patient continued to have poor output. 5-19 cc/hr. Escalona leaking urine around into brief. This RN attempted to readjust escalona meeting resistance. Pulled escalona out and tried to replace it w/ a caude w/ balloon. Still unable to advance catheter. Ed, RN into assist. Straight cath attempted without success. Informed Dr. Johnson. Consult placed for urology. Patient with history of prostate CA. Brief in place. Continuing to monitor.
--- NOTE | 2016-07-27 18:13 | Cons- Urology ---
General Information and HPI Consulting Request Date of Consult: 07/27/16 Requested By: GENEVIEVE PAYNE MD Reason for Consult: GARCIA INSERTION Source of Information: patient, old records Exam Limitations: no limitations History of Present Illness: 89 YR OLD ICU PT ADMITTED 4 DAYS AGO IN RESPIRATORY FAILURE: MULTIPLE MED. HX. GARCIA DC'D EARLIER AND NOW STAFF UNABLE TO INERT NEW GARCIA FOR STRIC I AND O. PT DENIES VOIDING PROBLEMS AT HOME. Allergies/Medications Allergies: Coded Allergies: NO KNOWN ALLERGIES (07/15/16) Home Med List: Acetaminophen (Q-Pap) 325 MG TABLET 2 TAB PEG Q4H PRN PAIN/TEMP>101 (Reported ) Acetaminophen (Acephen) 650 MG SUPP.RECT 1 SUPP ND Q4H PRN PAIN/TEMP>101 ( Reported) Insulin Glargine,Hum.rec.anlog (Lantus Solostar) 100 UNIT/ML (3 ML) INSULN.PEN 10 UNIT SC QHS DIABETES (Reported) Lactobacillus Acidophilus (Acidophilus) 1 EACH CAPSULE 1 CAP PEG BID PROBIOTIC (Reported) Magnesium Hydroxide (Milk Of Magnesia) 400 MG/5 ML ORAL.SUSP 30 ML PEG PRN CONSTIPATION (Reported) Metformin HCl 500 MG TABLET 1 TAB PEG BID DIABETES (Reported) Na Phos,M-B/Na Phos,Di-Ba (Fleet Enema) 19 GRAM-7 GRAM/118 ML ENEMA 1 E RC PRN CONSTIPATION (Reported) Nut.tx.gluc.intoler,Lac-Fr,Soy (Glucerna 1.2 Daniele) 237 ML LIQUID 70 ML PEG AD NUTRITIONAL SUPPLEMENT (Reported) Pioglitazone HCl 30 MG TABLET 1 TAB PEG DAILY DM (Reported) Saliva Substitute Combo No.9 (Biotene) 473 ML MOUTHWASH 15 ML PO 4XDAILY ORAL RINSE (Reported) Trimethobenzamide HCl (Tigan) 300 MG CAPSULE 1 TAB PO TIDPRN PRN NAUSEA Current Medications: Current Medications Sig/Lisa Start time Last Medication Dose Route Stop Time Status Admin Acetaminophen 650 MG Q6P PRN 07/24 0145 AC PO Acetaminophen/ 1 TAB Q6P PRN 07/24 0145 AC Hydrocodone Bitart PO Albuterol Sulfate 3 ML TID 07/24 1600 AC 07/27 INH 0809 Ampicillin Sodium/ 1,500 MG Q6 07/24 0600 DC 07/27 Sulbactam Sodium IV 0551 Sodium Chloride 100 ML Aspirin 325 MG DAILY 02/05 1000 AC 02/ PO 1137 Atorvastatin Calcium 40 MG 1700 02/05 1700 AC 02/ PO 1738 Ceftazidime 1,000 MG Q12 02/ 1334 AC 02 IV 1740 Clopidogrel Bisulfate 75 MG DAILY 02/ 1509 AC 02/ PO 1137 Heparin Sodium 2,000 UNIT ONCE ONE 07/26 1830 DC 07/26 (Porcine) IV 07/26 1831 1843 Heparin Sodium 5,000 UNIT .STK-MED ONE 07/26 1822 DC (Porcine) IV 07/26 1823 Heparin Sodium/ 25,000 UNIT Q24H 02/ 1530 AC 07/26 Dextrose IV 2131 Dextrose/Water 500 ML Hydromorphone HCl 0.5 MG Q4P PRN 07/24 0145 AC IV Insulin Human Regular 0 Q6 / 0154 AC 07/27 SC 1739 Ipratropium [place] 2.5 ML TID / 1600 AC 07/27 INH 0808 Metoclopramide HCl 10 MG ONCE ONE 07/27 0800 DC 02/ IV 02 0801 0815 Metoprolol Tartrate 12.5 MG BID / 2200 AC 02 PO 1137 Nitroglycerin 0.5 GM Q6 / 2002 AC 07/26 TOP 1834 Pantoprazole Sodium 40 MG DAILY / 1000 AC 02 IV 1137 Potassium Chloride 10 MEQ Q1H / 0845 DC 02/ IV 02/ 1046 1324 Sodium Chloride 500 ML .Q10H 02/ 2245 DC 02/ IV 02/ 0844 2300 Vancomycin HCl 125 MG Q6 02/ 1334 AC 02/ PO 1738 Vancomycin HCl 1,000 MG DAILY 07/27 1333 AC 02 Dextrose/Water 250 ML IV 1740 Past History Medical History Blood Transfusion Hx: No Neurological: peripheral neuropathy, seizure, ? ALS EENT: vocal cord paralysis Cardiovascular: NONE Respiratory: NONE Gastrointestinal: GERD Hepatic: NONE Renal: NONE Musculoskeletal: osteoarthritis Psychiatric: NONE Endocrine: TYPE II DIABETIC Blood Disorders: NONE Cancer(s): prostate cancer RODBUSTER/Reproductive: NONE Surgical History Pertinent Surgical History: G TUBE Family History Relations & Conditions If Any: Relation not specified for: FH: COPD (chronic obstructive pulmonary disease) Psychosocial History Where Do You Live? [facility] Services at Home: Home Health Aide, Nursing Primary Language: [place] Smoking Status: Former Smoker (Pipe smoker) ETOH Use: Former User Living Will? no Functional Ability ADLs Independent: dressing. Ambulation: walker IADLs Needs Assist: shopping, housework, finances, food prep, telephone, transportation, medication admin. Employment History Retired? yes Review of Systems Review of Systems Constitutional: Reports: see HPI, weakness. EENTM: Denies: no symptoms. Cardiovascular: Denies: no symptoms. Respiratory: Reports: short of breath. Genitourinary: Reports: see HPI. Skin: Denies: no symptoms. Exam & Diagnostic Data Vital Signs and I&O Vital Signs Date Time Temp Pulse Resp B/P Pulse O2 O2 Flow FiO2 Ox Delivery Rate 07/27 1200 92 Nasal 45% Cannula 07/27 1137 112 90/57 07/27 1133 93 Nasal 45% Cannula 07/27 0845 92 Nasal 45% Cannula 07/27 0843 88 Nasal 7.0L Cannula 07/27 0800 98.9 112 40 94/64 89 Nasal 7.0L Cannula 07/27 0800 89 Nasal 7.0L Cannula 07/27 0400 94 Nasal 7.0L Cannula 07/27 0000 94 Nasal 7.0L Cannula 07/27 0000 98.0 116 40 80/52 94 Nasal 7.0L Cannula 07/26 2200 120 84/56 07/26 2000 92 Nasal 7.0L Cannula Intake & Output 07/27 1600 07/27 0800 02/ 0000 02 1600 07/26 0800 02/ 0000 Intake Total 769 544 243 355 943 147.2 Output Total 75 45 123 250 305 285 Balance 694 499 120 105 638 -137.8 Intake, IV 689 544 143 255 943 147.2 Intake, Oral 0 0 0 Intake, Other 80 Intake, Tube 100 Feeding Intake, Tube 100 Irrigant Number 1 6 5 Bowel Movements Output, Urine 75 45 123 250 305 285 Patient 145 lb Weight Physical Exam General Appearance: well developed/nourished, cachetic Head: atraumatic Eyes: Bilateral: normal appearance. Respiratory: decreased breath sounds Cardiovascular: regular rate/rhythm Gastrointestinal: normal bowel sounds, G TUBE Back: no vertebral tenderness Extremities: normal inspection Reproductive: Normal male genitalia Last 24 Hours of Labs: Laboratory Tests 07/27 07/27 07/27 1255 0435 0030 Chemistry Sodium (137 - 145 mmol/L) 154 H Potassium (3.5 - 5.1 mmol/L) 3.5 Chloride (98 - 107 mmol/L) 114 H Carbon Dioxide (22 - 30 mmol/L) 28 Anion Gap (5 - 16) 12 BUN (9 - 20 mg/dL) 38 H Creatinine (0.7 - 1.2 mg/dL) 1.2 Estimated GFR (>60 ml/min) 57 L Glucose (65 - 99 mg/dL) 181 H Calcium (8.4 - 10.2 mg/dL) 8.5 Phosphorus (2.5 - 4.5 mg/dL) 4.2 Magnesium (1.6 - 2.3 mg/dL) 2.4 H Total Bilirubin (0.2 - 1.3 mg/dL) 1.2 AST (17 - 59 U/L) 49 ALT (21 - 72 U/L) 29 Albumin (3.5 - 5.0 g/dL) 2.6 L Coagulation APTT (25 - 37 SEC) 85 H 72 H Hematology CBC w Diff MAN DIFF ORDERED WBC (4.8 - 10.8 /CUMM) 21.9 H RBC (4.70 - 6.10 /CUMM) 2.95 L Hgb (14.0 - 18.0 G/DL) 8.8 L Hct (42 - 52 %) 26.8 L MCV (80.0 - 94.0 FL) 90.8 MCH (27.0 - 31.0 PG) 29.7 RDW (11.5 - 14.5 %) 14.8 H Plt Count (130 - 400 /CUMM) 305 MPV (7.4 - 10.4 FL) 10.8 H Gran % (42.2 - 75.2 %) 92.1 H Lymphocytes % (20.5 - 51.1 %) 1.7 L Monocytes % (1.7 - 9.3 %) 6.2 Eosinophils % (0 - 5 %) 0 Basophils % (0.0 - 2.0 %) 0 L Absolute Granulocytes (1.4 - 6.5 /CUMM) 20.2 H Segmented Neutrophils (42.2 - 75.2 %) 91 H Absolute Lymphocytes (1.2 - 3.4 /CUMM) 0.4 L Lymphocytes (20.5 - 51.1 %) 5 L Monocytes (1.7 - 9.3 %) 4 Absolute Monocytes (0.10 - 0.60 /CUMM) 1.4 H Absolute Eosinophils (0.0 - 0.7 /CUMM) 0 Absolute Basophils (0.0 - 0.2 /CUMM) 0 Nucleated RBCs (0.0 - 0.0 /100WBC) 1 H Platelet Estimate (ADEQUATE) ADEQUATE Polychromasia 1+ Hypochromic-Microcytic 1+ Poikilocytosis 2+ Ovalocytes 1+ Stomatocytes 1+ PUBS MCHC (33.0 - 37.0 G/DL) 32.7 L Other Body Source Fld Total RBCs Counted (%) 100 Imaging Results: PATIENT: MILLY LLOYD PRESENT AGE: 89 PATIENT ACCOUNT NO: [id number] : [birth year] LOCATION: [facility] ORDERING PHYSICIAN: MARICARMEN SIMON MD SERVICE DATE: 07/27/16 EXAM TYPE: CAT - CT ABD & PELVIS W/O IV CONTRAS; CT CHEST WO IV CONTRAST EXAMINATION: CT CHEST, ABDOMEN AND PELVIS WITHOUT CONTRAST CLINICAL INFORMATION: Aspiration, cough, crackles, shortness of breath not responding to treatment with antibiotic. Abdominal tenderness, increased white blood cells, looking for source of infection in his abdominal cavity. COMPARISON: CT of the abdomen and pelvis 07/09/2016. CT of the chest 03/10/2011. TECHNIQUE: Contiguous axial thin section helical images of the chest, abdomen and pelvis were performed. The data set was reformatted in the coronal and sagittal planes and reviewed on an independent workstation. DLP: 392.31 mGy-cm. FINDINGS: LUNGS: There is severe worsening dense consolidation in both lungs, most prominent in the posterior aspects of the upper lobes and in most of the lower lobes. There is also patchy consolidation extending anteriorly in the lower lobes in particular. MEDIASTINUM: There is a nonspecific mildly enlarged precarinal lymph node measuring 1.1 cm in diameter. There are scattered thoracic aortic and coronary artery calcifications. PLEURA: There are small right and moderate left pleural effusions. AXILLA: No lymphadenopathy. LIVER, GALLBLADDER, BILIARY TREE: Normal. PANCREAS: Normal. SPLEEN: Normal. ADRENAL GLANDS AND KIDNEYS: Normal. URETERS AND BLADDER: The bladder is thick walled and decompressed by a Garcia catheter. BOWEL LOOPS: The small and large bowel are unremarkable. The appendix appears normal. There is a gastrostomy tube in place. ABDOMINAL WALL: Unremarkable. LYMPHOVASCULAR STRUCTURES: Normal. PELVIC VISCERA: Unremarkable. BONES: There are stable degenerative changes in the spine and both hips. ADDITIONAL FINDINGS: None. IMPRESSION: 1. Dense consolidation throughout both lungs, involving the lower lobes more than the upper lobes, suspicious for bilateral pneumonia. 2. Small right and moderate left pleural effusions . 3. No inflammatory processes in the abdomen or pelvis. Assessment/Plan Assessment/Plan PT REQUIRES STRICT I AND O/GARCIA DISLODGED; HERE TO INSERT NEW 18 FR GARCIA. Copies To: SUJATHA POOL MD Consult Acknowledgment - Thank you for your consult request. Attending MD Review Statement Attending Statement Attending MD Statement: examined this patient, discuss w/resident/PA/BUILDING CONSTRUCTION FOREMAN Attending Assessment/Plan: PT WITH URETHRAL STRICTURE MAKING GARCIA INSERTION DIFFICULT. DC GARCIA WHEN READY FOR DC HOME.
[2016-07-27 20:59] LABS: PTT 77 SEC (25-37)
--- NOTE | 2016-07-27 22:30 | NUR ---
2230- Patient noted to have an increase in work of breathing and oxygen demand. RT notified and High flow NC increased to 50L and 100%. Dr. Johnson notified at this time. Patient also is becoming more hypotensive with low urine output at this time. Dr. Johnson is aware and notifies the family about the change in patient's condition. Patient is DNR/I, and the family would like no additional measures taken at this time. Will cont to monitor.
--- NOTE | 2016-07-27 23:18 | RADIOLOGY REPORT ---
EXAMINATION: XR PORTABLE CHEST CLINICAL INFORMATION: Increasing oxygen demand. Shortness of breath. COMPARISON: Chest x-ray 07/27/2016 TECHNIQUE: Portable AP upright view of the chest was obtained. 10:59 PM FINDINGS: There are bilateral pleural effusions. Volume of effusions is unchanged since prior chest x-ray. There is persistent bilateral airspace disease in the mid and lower lung irwin. IMPRESSION: Persistent bilateral airspace disease and bilateral pleural effusions.
[2016-07-28] VITALS: BP 92/60
--- NOTE | 2016-07-28 05:47 | NUR ---
Patient at 0534am with family at bedside. loom changer was in room to perform last rights. Dr. Celis at bedside to pronouce.
--- NOTE | 2016-07-28 07:41 | Discharge Summary ---
Visit Information Visit Dates Admission Date: 07/24/16 Discharge Date: 07/28/16 Hospital Course Course Attending Physician: GENEVIEVE PAYNE MD Primary Care Physician: ALVINA BRITO MD. Hospital Course: with PMH of diabetes, motor neuron disease, with oropharyngeal dysphagia secondary to vocal cord paralysis, status post placement of a PEG tube 5 years prior to admission, hospitalized 2 weeks prior to admission with nausea and vomiting and found to have right middle lobe and right lower lobe densities on the CT scan of the abdomen and pelvis, treated with Unasyn, with a left thoracentesis revealing an exudate, discharged to a rehabilitation facility after 1 week on Augmentin to complete a 10 day course of antibiotics, with a repeat left thoracentesis performed 4 days prior to admission, again revealing an exudate, with almost 500,000 red blood cells, readmitted on July 23 after he was sent to the emergency room with the acute onset of cough and shortness of breath after drinking water, which had been recommended after a follow-up swallowing study at his facility. On admission he was afebrile with an O2 sat of 77% on room air. Laboratory data revealed a white blood cell count of 22,000 , BUN/creatinine 25 and 0.9, alk phosphatase 159, ABG 7.33/42/59 on 6 L. Chest x-ray revealed bibasilar densities Issue addressed during this admission: 1.Acute hypoxic respiratory failure. Patient has chronic pleural effusion, however this respiratory failure most probably secondary to aspiration pneumonia, Patient was continued on appropriate antibiotic, WBC continued to be elevated through out ICU stay. He continued to be hypotensive and tachycardia (family refused central line and pressors). Patient WBCs was not improving for which ID was involved on care plan. He was continued on Abx, pulmonary toilet, nebulization with albuterol, oxygen support, Incentive spirometry, he was NPO and His feeding tube was on hold (aspiration precautions). 2.NSTEMI Patient complained of chest pain, and had elevated troponins with the highest being 2.65. In this setting he appears to have papillary muscle ischemia causing mitral regurgitation and consequent hypotension with pulmonary edema, so double back operator was consulted, ECHO was done (new murmur). He was started on heparin drip, statin, aspirin and plavix. We did not cath because of his unstable clinical condition and also The patient and family want conservative treatment due to his age and comorbidities 3. C diff Even with Abx, WBCs continued to be elevated. C diff was done as part of searching for another source of infection. C diff result was positive. patient was started on vancomycin oral. 4. Diabetes patient was placed on appropriate insulin sliding scale with ACCcheck 5.NICK Since admission patient Cr was not stable. At some point his creatinine was 1.4. renal function was monitored closely. 6. Hyperkalemia/Hypokalemia Patient initially presented with hyperkalemia up to 6.3. It was treated appropriate. His potassium was then monitored closely and was repleted as necessary. Allergies: Coded Allergies: NO KNOWN ALLERGIES (07/15/16) Disposition Summary Disposition Principal Diagnosis: 1.Hypoxemic respiratory failure, ?aspiration pna 2.chronic left pleural effusion, exudative, but cytology negative for malignancy 3.leukocytosis 4. C.diff 5.NICK Additional Diagnosis: 1.prostate ca hx Discharge Disposition: passed a way during admission Discharge Instructions General Discharge Information Code Status: Do Not Intubate Patient's Diet: n/a Patient's Activity: n/a Follow-Up Instructions/Appts: n/a Copies To: GENEVIEVE PAYNE MD Attending MD Review Statement Documenting Attending: GENEVIEVE PAYNE MD Other Findings: Pt on 07/28/2016.
== END 2016-07-28 05:34 | disposition expired | DRG 177 ==
LOC: ENRESERVDT → ENRESERVTM → ERH 21:32 → CRI 07-24 01:06 → ERHI 07-24 01:06 → 1NO 07-24 02:42 → CRI 07-25 08:42
PROVIDERS: Emergency Medicine; Internal Medicine; Pediatrics; Student in an Organized Health Care Education/Training Program; Surgery; ADMIT Internal Medicine
DX: J69.0 Pneumonitis due to inhalation of food and vomit (principal); J96.01 Acute respiratory failure with hypoxia; I21.4 Non-ST elevation (NSTEMI) myocardial infarction; J38.00 Paralysis of vocal cords and larynx, unspecified; G12.21 Amyotrophic lateral sclerosis; Z93.1 Gastrostomy status; E11.9 Type 2 diabetes mellitus without complications; Z79.84 Long term (current) use of oral hypoglycemic drugs; M19.90 Unspecified osteoarthritis, unspecified site; C61 Malignant neoplasm of prostate; Z87.891 Personal history of nicotine dependence; I25.10 Atherosclerotic heart disease of native coronary artery without angina pectoris
CPT/HCPCS: 1NP; CCU; 36415; 74176; 82436; 87040; 87070; 87086; 87449; 87450; 87804; 87804-59; 93005; 93010; 93306; 96374; 96375; 99291; J0713; J1644; J1650; J1940; J2270; J2405; J2765; J3370; J7060